=== PATIENT | female | born 1960 | race Caucasian/White ===

== ENCOUNTER 2018-06-08 17:07 | Inpatient (IN) | payer OTHER ==
[2018-06-08 18:11] LABS: Absolute Monocytes 0.7 K/uL (0.1-1.3); Absolute Neutrophil 6.6 K/uL (1.8-8.0); Basophils % 0.4 % (0-1.3); Eosinophils % 2.3 % (0-4.4); Hematocrit 44.2 % (36.0-45.0); Lymphocytes % 21.2 % (15.3-44.8); MCH 27.7 pg (27.0-35.0); MCV 83.7 fL (80-100); MPV 8.7 fL (7.6-11.3); Monocytes % 7.8 % (3.3-12.3); RBC Red Blood Cell Count 5.28 M/uL (3.86-4.86)
[2018-06-08] MEDS ORDERED: MORPHINE 4 MG/ML SYR ONE ×2 (18:13→19:38)
[2018-06-08] MEDS ORDERED: NA CHLORIDE 0.9% 1,000 ML ONE (18:13)
[2018-06-08] MEDS ORDERED: ONDANSETRON 4 MG/2 ML VIAL ONE (18:13)
[2018-06-08 18:40] LABS: Urine Bacteria <20 /HPF (<20); Urine RBC <5 /HPF (NONE SEEN)
[2018-06-08 18:41] LABS: Urine Culture Reflex Order NOT NEEDED
[2018-06-08 18:44] LABS: Albumin 3.4 g/dL (3.4-5.0); Bilirubin Direct 0.1 mg/dL (0-0.2); Bilirubin Total 0.3 mg/dL (0.2-1.0); Protein, Total 8.2 g/dL (6.4-8.2)
[2018-06-08 19:26] LABS: Urine Blood NEGATIVE (NEG); Urine Glucose NEGATIVE (NEG); Urine Protein NEGATIVE (NEG)
--- NOTE | 2018-06-08 20:17 | RAD REPORT ---
EXAM DESCRIPTION: CT - Abdomen Pelvis Wo Contrast - 06/08/2018 7:56 pm CLINICAL HISTORY: Abdominal pain COMPARISON: None. TECHNIQUE: It No IV contrast was given because of allergy, abnormal renal function, patient refusal or physician request. Oral contrast was given. All CT scans are performed using dose optimization technique as appropriate and may include automated exposure control or mA/KV adjustment according to patient size. FINDINGS: No suspicious findings in the lung bases. The liver, spleen and pancreas show no suspicious findings on non-contrast imaging. A 12 millimeter g allstone is present. No other gallbladder or biliary tree finding. No hydronephrosis or suspicious renal mass. No significant adrenal finding. Isodense renal masses an d pyelonephritis cannot be excluded in the absence of IV contrast. The urinary bladder is without sig nificant finding. Uterus and ovaries show no suspicious findings. No gastric dilatation or wall thickening. No acute small bowel finding. No appendicitis findings. Fro m cecum through splenic flexure no colon abnormality. In the distal descending colon there is a short segment of circumferential wall thickening with edema and stranding in the adjacent fat. Patient has sigmoid and descending colon diverticulosis. No acute sigmoid or rectum process. No free air, free f luid or pneumatosis. No other site of inflammatory stranding. No hernia, mass or bulky lymphadenopath y. No suspicious bony findings. IMPRESSION: Mild acute diverticulitis of the distal descending colon. No abscess, free air or other complicating factor. Full assessment is limited is the absence of IV contrast.
--- NOTE | 2018-06-08 20:34 | EDPHYS ---
Physician Documentation [facility] Name: Tere Urbina Age: 57 yrs Sex: Female : 1960 Arrival Date: 06/08/2018 Time: 17:09 Bed 19 Private MD: ED Physician Soy Callaway HPI: 06/08 18:00 This 57 yrs old Female presents to ER via Ambulatory with complaints of cp Abdominal Pain, Flank Pain. 18:00 The patient presents with abdominal pain in the left lower quadrant, left lateral cp abdomen. Onset: The symptoms/episode began/occurred this morning, upon awakening. The symptoms do not radiate. Associated signs and symptoms: Pertinent positives: nausea, Pertinent negatives: blood in stools, chest pain, constipation, dysuria, fever, hematuria, vaginal discharge, vomiting. The symptoms are described as constant. Modifying factors: the symptoms are aggravated by movement, pressure. Severity of pain: in the emergency department the pain is actually worse moderately. Historical: - Allergies: 17:39 PENICILLINS; aj1 17:39 Keflex; aj1 17:39 Ceclor; aj1 - Home Meds: 17:39 pantoprazole 40 mg oral TbEC 1 tab once daily [Active]; montelukast 10 mg oral tab once aj1 daily [Active]; rosuvastatin 10 mg oral tab 1 tab once daily [Active]; terbinafine HCl 250 mg oral tab 1 tab once daily [Active]; levothyroxine 100 mcg tab 1 tab once daily [Active]; Usha 180 mg Oral tab 1 tab once daily [Active]; - PMHx: 17:39 Hypothyroidism; GERD; IBS; seasonal allergies; aj1 - Immunization history:: Flu vaccine is not up to date. - Social history:: Smoking status: Patient uses tobacco products, smokes one-half pack cigarettes per day. - Ebola Screening: : Patient denies travel to an Ebola-affected area in the 21 days before illness onset. ROS: 18:05 Constitutional: Negative for body aches, chills, fever, poor PO intake. cp 18:05 Eyes: Negative for injury, pain, redness, and discharge. cp 18:05 Cardiovascular: Negative for chest pain, edema, palpitations. 18:05 Respiratory: Negative for cough, shortness of breath, wheezing. 18:05 Abdomen/GI: Positive for abdominal pain, nausea, of the anterior aspect of left lateral abdomen and left lower quadrant, Negative for vomiting, diarrhea, constipation, anorexia. 18:05 Back: Negative for injury or acute deformity, decreased range of motion. 18:05 : Negative for urinary symptoms, vaginal bleeding. 18:05 Skin: Negative for cellulitis, rash. 18:05 Neuro: Negative for altered mental status, headache, weakness. 18:05 All other systems are negative. Exam: 18:12 Constitutional: The patient appears alert, awake, non-diaphoretic, non-toxic, well cp developed, in obvious pain, uncomfortable. 18:12 Head/Face: Normocephalic, atraumatic. Eyes: Pupils equal round and reactive to light, cp extra-ocular motions intact. Lids and lashes normal. Conjunctiva and sclera are non-icteric and not injected. Cornea within normal limits. Periorbital areas with no swelling, redness, or edema. ENT: Nares patent. No nasal discharge, no septal abnormalities noted. Tympanic membranes are normal and external auditory canals are clear. Oropharynx with no redness, swelling, or masses, exudates, or evidence of obstruction, uvula midline. Mucous membranes moist. Chest/axilla: Normal chest wall appearance and motion. Nontender with no deformity. No lesions are appreciated. 18:12 Cardiovascular: Rate: normal, Rhythm: regular, Heart sounds: murmur, not appreciated, Edema: is not appreciated, JVD: is not appreciated. 18:12 Respiratory: the patient does not display signs of respiratory distress, Respirations: normal, no use of accessory muscles, no retractions, no splinting, no tachypnea, labored breathing, is not present, Breath sounds: are clear throughout, no decreased breath sounds, no stridor, no wheezing. 18:12 Abdomen/GI: Inspection: abdomen appears normal, Bowel sounds: active, all quadrants, Palpation: soft, in all quadrants, severe abdominal tenderness, in the anterior aspect of left lateral abdomen and left lower quadrant, rebound tenderness, is not appreciated, voluntary guarding, is elicited in the anterior aspect of left lateral abdomen and left lower quadrant. 18:12 Back: CVA tenderness, is absent. 18:12 Skin: cellulitis, is not appreciated, no rash present. 18:12 Neuro: Orientation: to person, place \T\ time. Mentation: is normal, Cerebellar function: is grossly normal, Motor: moves all fours, strength is normal, Sensation: is normal. Vital Signs: 17:39 BP 146 / 87; Pulse 94; Resp 18; Temp 98.8(O); Pulse Ox 99% on R/A; Weight 86.18 kg (R); aj1 Height 5 ft. 7 in. (170.18 cm); Pain 10/10; 18:24 BP 143 / 84; Pulse 85; Pulse Ox 97% on R/A; rv 19:15 BP 134 / 74; Pulse 82; Resp 17; Temp 98.4(O); Pulse Ox 97% on R/A; rr5 20:00 BP 135 / 78; Pulse 89; Resp 17; Temp 98.5; Pulse Ox 100% ; rr5 21:00 BP 134 / 70; Pulse 70; Resp 17; Pulse Ox 99% ; rr5 17:39 Body Mass Index 29.76 (86.18 kg, 170.18 cm) aj1 MDM: 17:43 Patient medically screened. cp 20:31 Data reviewed: vital signs, nurses notes, lab test result(s), radiologic studies. Physician consultation: Semaj Lewis MD was called at 20:31, was contacted at 20:31, regarding admission, to the medical/surgical unit. patient's condition. 06/08 17:55 Order name: Basic Metabolic Panel; Complete Time: 19:20 cp 06/08 19:20 Interpretation: Normal except: GFR 87. 06/08 17:55 Order name: CBC with Diff; Complete Time: 19:20 cp 06/08 19:20 Interpretation: Normal except: RBC 5.28. cp 06/08 17:55 Order name: Creatinine for Radiology; Complete Time: 19:20 cp 06/08 17:55 Order name: Hepatic Function; Complete Time: 19:20 cp 06/08 19:54 Interpretation: Normal except: ALK 144; GLOB 4.8; A/G 0.7. cp 06/08 17:55 Order name: Lipase; Complete Time: 19:20 cp 06/08 17:55 Order name: Urine Microscopic Only; Complete Time: 19:20 cp 06/08 19:55 Interpretation: Normal except: SQEPI 5-10. cp 06/08 18:07 Order name: Abdomen ; Complete Time: 20:24 EDMS 06/08 18:28 Order name: Urine Dipstick--Ancillary (enter results); Complete Time: 19:54 eb 06/08 19:54 Interpretation: Reviewed. cp 06/08 18:28 Order name: Urine --Ancillary (enter results); Complete Time: 19:54 eb 06/08 19:54 Interpretation: Reviewed. cp 06/08 17:55 Order name: IV Saline Lock; Complete Time: 18:25 cp 06/08 17:55 Order name: Labs collected and sent; Complete Time: 18:25 cp 06/08 17:55 Order name: Urine Test (obtain specimen); Complete Time: 18:20 cp 06/08 17:55 Order name: Urine Dipstick-Ancillary (obtain specimen); Complete Time: 18:19 cp 06/08 20:32 Order name: NPO; Complete Time: 21:08 cp Administered Medications: 18:14 Drug: morphine 4 mg Route: IVP; Site: right antecubital; rv 18:15 Drug: NS 0.9% 1000 ml Route: IV; Rate: 1 bolus; Site: right antecubital; rv 18:15 Drug: Zofran 4 mg Route: IVP; Site: right antecubital; rv 19:37 Drug: morphine 4 mg Route: IVP; Site: right antecubital; rr5 21:08 Follow up: Response: No adverse reaction; Pain is decreased rr5 20:40 Drug: Dilaudid 1 mg Route: IVP; Site: right antecubital; rr5 21:34 Follow up: Response: No adverse reaction; Pain is decreased rr5 21:21 Drug: metroNIDAZOLE 500 mg Volume: 100 ml; Route: IVPB; Infused Over: 30 mins; Site: rr5 right antecubital; 21:35 Follow up: IV Status: Infusion continued upon admission; IV Intake: 100ml rr5 21:21 Drug: Cipro 400 mg Volume: 200 ml; Route: IVPB; Infused Over: 60 mins; Site: right rr5 antecubital; 21:34 Follow up: IV Status: Infusion continued upon admission; IV Intake: 200ml rr5 Disposition: 06/09 06:14 Co-signature as Attending Physician, Soy Callaway MD. rn Disposition: 06/08/18 20:33 Hospitalization ordered by Semaj Lewis for Inpatient Admission. Preliminary diagnosis is Diverticulitis of large intestine without perforation or abscess without bleeding. - Bed requested for Telemetry/MedSurg (Inpatient). - Status is Inpatient Admission. rr5 - Condition is Stable. - Problem is new. - Symptoms have improved. UTI on Admission? No Signatures: Dispatcher [employer] EDOR Bella Biggs RN RN aj1 Soy Callaway MD MD rn Page, Corey, PA PA Deloris Wagoner mw2 Norm Hill RN RN Abdi Kyle RN RN rr5 Corrections: (The following items were deleted from the chart) 06/08 18:07 17:56 Abdomen Pelvis W Con+CT.RAD.BRZ ordered. [facility] 20:56 20:33 Hospitalization Ordered by Semaj Lewis MD for Inpatient Admission. Preliminary mw2 diagnosis is Diverticulitis of large intestine without perforation or abscess without bleeding. Bed requested for Telemetry/MedSurg (Inpatient). Status is Inpatient Admission. Condition is Stable. Problem is new. Symptoms have improved. UTI on Admission? No. cp 21:41 20:56 06/08/2018 20:33 Hospitalization Ordered by Semaj Lewis MD for Inpatient rr5 Admission. Preliminary diagnosis is Diverticulitis of large intestine without perforation or abscess without bleeding. Bed requested for Telemetry/MedSurg (Inpatient). Status is Inpatient Admission. Condition is Stable. Problem is new. Symptoms have improved. UTI on Admission? No. mw2
--- NOTE | 2018-06-08 20:34 | ER ---
Nurse's Notes [facility] Name: Tere Urbina Age: 57 yrs Sex: Female : 1960 Arrival Date: 06/08/2018 Time: 17:09 Bed 19 Private MD: Diagnosis: Diverticulitis of large intestine without perforation or abscess without bleeding Presentation: 06/08 17:33 Presenting complaint: Patient states: "I got up this morning and I was having some low aj1 abdominal pain, as the day progressed its gotten worse and now its going into my side and radiating into my back" Denies N/V/D. Denies dysuria. Transition of care: patient was not received from another setting of care. Onset of symptoms was June 08, 2018. Risk Assessment: Do you want to hurt yourself or someone else? Patient reports no desire to harm self or others. Initial Sepsis Screen: Does the patient meet any 2 criteria? HR > 90 bpm. No. Patient's initial sepsis screen is negative. Does the patient have a suspected source of infection? Yes: Acute abdominal pain. Care prior to arrival: None. 17:33 Method Of Arrival: Ambulatory aj1 17:33 Acuity: KAITLYNN 3 aj1 Triage Assessment: 17:39 General: Appears in no apparent distress. comfortable, Behavior is calm, cooperative, aj1 appropriate for age. Pain: Complains of pain in posterior aspect of left lateral abdomen, anterior aspect of left lateral abdomen and left lower quadrant Pain currently is 10 out of 10 on a pain scale. Neuro: Level of Consciousness is awake, alert, obeys commands. Cardiovascular: Patient's skin is warm and dry. Respiratory: Airway is patent Respiratory effort is even, unlabored, Respiratory pattern is regular, symmetrical. GI: Reports lower abdominal pain, nausea. Historical: - Allergies: 17:39 PENICILLINS; aj1 17:39 Keflex; aj1 17:39 Ceclor; aj1 - Home Meds: 17:39 pantoprazole 40 mg oral TbEC 1 tab once daily [Active]; montelukast 10 mg oral tab once aj1 daily [Active]; rosuvastatin 10 mg oral tab 1 tab once daily [Active]; terbinafine HCl 250 mg oral tab 1 tab once daily [Active]; levothyroxine 100 mcg tab 1 tab once daily [Active]; Usha 180 mg Oral tab 1 tab once daily [Active]; - PMHx: 17:39 Hypothyroidism; GERD; IBS; seasonal allergies; aj1 - Immunization history:: Flu vaccine is not up to date. - Social history:: Smoking status: Patient uses tobacco products, smokes one-half pack cigarettes per day. - Ebola Screening: : Patient denies travel to an Ebola-affected area in the 21 days before illness onset. Screenin:23 Abuse screen: Denies threats or abuse. Denies injuries from another. Nutritional rv screening: No deficits noted. Tuberculosis screening: No symptoms or risk factors identified. Fall Risk None identified. Assessment: 18:00 General: Appears in no apparent distress. uncomfortable, Behavior is calm, cooperative. rv 18:00 Pain: Complains of pain in back. Neuro: Level of Consciousness is awake, alert, obeys rv commands, Oriented to person, place, time, situation. Cardiovascular: Capillary refill < 3 seconds. Respiratory: Airway is patent. GI: No signs and/or symptoms were reported involving the gastrointestinal system. Bowel sounds present X 4 quads. Abd is soft and non tender X 4 quads. : No signs and/or symptoms were reported regarding the genitourinary system. EENT: No signs and/or symptoms were reported regarding the EENT system. Derm: Skin is intact. 19:20 General: Appears uncomfortable, Behavior is calm, cooperative. Pain: Complains of pain rr5 in back and abdomen Pain currently is 8 out of 10 on a pain scale. Quality of pain is described as aching. 19:20 Neuro: Level of Consciousness is Oriented to person, place, time, situation. rr5 Cardiovascular: No deficits noted. Respiratory: No deficits noted. Airway is patent. GI: Bowel sounds present X 4 quads. Abd is soft and non tender. : No signs and/or symptoms were reported regarding the genitourinary system. EENT: No signs and/or symptoms were reported regarding the EENT system. Derm: Skin is intact, is healthy with good turgor. Musculoskeletal: No signs and/or symptoms reported regarding the musculoskeletal system. Musculoskeletal: Capillary refill < 3 seconds, Range of motion:. 21:23 Reassessment: Patient states feeling better. Patient states symptoms have improved. rr5 Vital Signs: 17:39 BP 146 / 87; Pulse 94; Resp 18; Temp 98.8(O); Pulse Ox 99% on R/A; Weight 86.18 kg (R); aj1 Height 5 ft. 7 in. (170.18 cm); Pain 10/10; 18:24 BP 143 / 84; Pulse 85; Pulse Ox 97% on R/A; rv 19:15 BP 134 / 74; Pulse 82; Resp 17; Temp 98.4(O); Pulse Ox 97% on R/A; rr5 20:00 BP 135 / 78; Pulse 89; Resp 17; Temp 98.5; Pulse Ox 100% ; rr5 21:00 BP 134 / 70; Pulse 70; Resp 17; Pulse Ox 99% ; rr5 17:39 Body Mass Index 29.76 (86.18 kg, 170.18 cm) aj1 ED Course: 17:09 Patient arrived in ED. as 17:35 Triage completed. aj1 17:39 Arm band placed on Patient placed in an exam room. aj1 17:42 Wilfredo Upton PA is PHCP. cp 17:42 Soy Callaway MD is Attending Physician. cp 17:59 Oral contrast given. vr 18:00 Inserted saline lock: 20 gauge in right antecubital area, using aseptic technique. rv Blood collected. 18:00 Initial lab(s) drawn, by me, sent to lab. rv 18:23 Patient has correct armband on for positive identification. Bed in low position. Call rv light in reach. Side rails up X 1. Adult w/ patient. Pulse ox on. NIBP on. 19:01 Report given to SEBASTIAN/YONY ASHFORD. rv 19:16 Abdi Kyle RN is Primary Nurse. rr5 19:55 CT completed. Patient tolerated procedure well. Patient moved back from CT. vm2 19:56 Abdomen In Process Unspecified. EDMS 20:32 Semaj Lewis MD is Hospitalizing Provider. cp 21:29 No provider procedures requiring assistance completed. Patient admitted, IV remains in rr5 place. intact. Administered Medications: 18:14 Drug: morphine 4 mg Route: IVP; Site: right antecubital; rv 18:15 Drug: NS 0.9% 1000 ml Route: IV; Rate: 1 bolus; Site: right antecubital; rv 18:15 Drug: Zofran 4 mg Route: IVP; Site: right antecubital; rv 19:37 Drug: morphine 4 mg Route: IVP; Site: right antecubital; rr5 21:08 Follow up: Response: No adverse reaction; Pain is decreased rr5 20:40 Drug: Dilaudid 1 mg Route: IVP; Site: right antecubital; rr5 21:34 Follow up: Response: No adverse reaction; Pain is decreased rr5 21:21 Drug: metroNIDAZOLE 500 mg Volume: 100 ml; Route: IVPB; Infused Over: 30 mins; Site: rr5 right antecubital; 21:35 Follow up: IV Status: Infusion continued upon admission; IV Intake: 100ml rr5 21:21 Drug: Cipro 400 mg Volume: 200 ml; Route: IVPB; Infused Over: 60 mins; Site: right rr5 antecubital; 21:34 Follow up: IV Status: Infusion continued upon admission; IV Intake: 200ml rr5 Intake: 21:34 IV: 200ml; Total: 200ml. rr5 21:35 IV: 100ml; Total: 300ml. rr5 Outcome: 20:33 Decision to Hospitalize by Provider. cp 21:29 Admitted to Tele Report called to SUSAN rr5 21:29 Condition: good 21:29 Instructed on the need for admit. 21:41 Patient left the ED. rr5 Signatures: Dispatcher [employer] EDBella Caldwell, RN RN ajJewels Stephens Victoria vr Page, Corey, PA PA cp McGuire, Victoria 2 Norm Hill RN RN rv Roque, Raymond RN RN rr5 Corrections: (The following items were deleted from the chart) 21:32 21:29 Admitted to Tele accompanied by nurse, rr5 rr5
[2018-06-08] MEDS ORDERED: HYDROMORPHONE HCL 1 MG/ML INJ ONE (20:38)
[2018-06-08] MEDS ORDERED: METRONIDAZOLE 500mg IVPB 500 MG/100 ML BAG IV ONE (21:25)
[2018-06-08] MEDS ORDERED: CIPROFLOXACIN 400mg IV 400 MG/200 ML BAG IV ONE (21:25)
--- NOTE | 2018-06-08 21:29 | P.HP ---
Certification for Inpatient Patient admitted to: Inpatient With expected LOS: >2 Midnights Practitioner: I am a practitioner with admitting privileges, knowledge of patient current condition, hospital course, and medical plan of care. Services: Services provided to patient in accordance with Admission requirements found in Title 42 Section 412.3 of the Code of Federal Regulations Patient History Date of Service: 06/08/18 Reason for admission: Acute pancreatitis History of Present Illness: Ms Urbina 7-year-old woman with history of hypothyroidism, GERD, IBS who start this morning with lower abdominal pain. Gravelly, the pain was getting worse and was localized on aortic panel radiated to left flank and right lower quadrant. She denied any fever, chills sweating episode. She also denied nausea, vomiting or diarrhea. The pain was constant, intensity 10/10. Lab work shows normal WBC count, lactate and procalcitonin pending. CT abdomen and pelvis remarkable for mild sigmoid diverticulitis without complication. Home medications list reviewed: Yes - Past Medical/Surgical History -: Hypothyroidism -: IBS -: Tobacco abuse -: GERD Past Surgical History: Reviewed- Non-Contributory - Family History Family History: Reviewed- Non-Contributory - Social History Smoking Status: Current every day smoker Counseled patient to stop smoking for: less than 10 minutes Alcohol use: Yes CD- Drugs: No Place of Residence: Home Review of Systems 10-point ROS is otherwise unremarkable Physical Examination - Physical Exam General: Alert, In no apparent distress HEENT: Atraumatic, PERRLA, Mucous membr. moist/pink, EOMI, Sclerae nonicteric Neck: Supple, 2+ carotid pulse no bruit, No LAD, Without JVD or thyroid abnormality Respiratory: Clear to auscultation bilaterally, Normal air movement Cardiovascular: Regular rate/rhythm, Normal S1 S2 Gastrointestinal: Normal bowel sounds, Tenderness (Left lower quadrant) Musculoskeletal: No tenderness Integumentary: No rashes Neurological: Normal speech, Normal strength at 5/5 x4 extr, Normal tone, Normal affect Lymphatics: No axilla or inguinal lymphadenopathy - Studies Laboratory Data (last 24 hrs) 06/08/18 18:00: Creatinine 0.60 06/08/18 18:00: WBC 9.6, Hgb 14.6, Hct 44.2, Plt Count 280 06/08/18 18:00: Sodium 140, Potassium 4.0, BUN 8, Creatinine 0.70, Glucose 93, Total Bilirubin 0.3, AST 26, ALT 47, Alkaline Phosphatase 144 H, Lipase 227 Assessment and Plan - Problems (Diagnosis) (1) Acute diverticulitis Current Visit: Yes Status: Acute (2) Hypothyroidism Current Visit: Yes Status: Acute Qualifiers: Hypothyroidism type: unspecified Qualified Code(s): E03.9 - Hypothyroidism , unspecified (3) Tobacco abuse Current Visit: Yes Status: Acute - Plan The patient will be admitted to the hospital due to acute uncomplicated diverticulitis. Will order IV fluids, empiric antibiotic treatment, clear liquids, and symptomatic medication for pain. At some point, she will need to have an evaluation by GI specialist, likely constipation discharge. - Advance Directives Does patient have a Living Will: No Does patient have a Durable POA for Healthcare: No - Code Status/Comfort Care Code Status Assessed: Yes Code Status: Full Code
[2018-06-08] MEDS ORDERED: CIPROFLOXACIN 400mg IV 400 MG/200 ML BAG IV SCH (22:33)
[2018-06-08] MEDS ORDERED: ACETAMINOPHEN 500 MG TAB PO PRN (22:33)
[2018-06-08] MEDS: ONDANSETRON 4 MG/2 ML VIAL IV PRN (23:07)
[2018-06-08] MEDS: NA CHLORIDE 0.9% 1,000 ML IV SCH (23:07)
[2018-06-08] MEDS: KETOROLAC 30 MG/ML INJ IV PRN (23:08)
[2018-06-08 23:36] VITALS: O2SAT 95; BMI 30.8
[2018-06-09] MEDS: LEVOTHYROXINE SOD 0.1 MG TAB PO SCH (05:48)
[2018-06-09] MEDS: NA CHLORIDE 0.9% 1,000 ML IV SCH ×3 (05:48→21:26)
[2018-06-09] MEDS: KETOROLAC 30 MG/ML INJ IV PRN (05:52)
[2018-06-09 07:16] LABS: Absolute Lymphocytes (CBC) 2.6 K/uL (0.7-4.9); Absolute Monocytes 0.6 K/uL (0.1-1.3); Absolute Neutrophil 3.3 K/uL (1.8-8.0); Basophils % 0.5 % (0-1.3); Hematocrit 39.1 % (36.0-45.0); Lymphocytes % 38.4 % (15.3-44.8); MCH 27.8 pg (27.0-35.0); MCV 83.7 fL (80-100); MPV 9.6 fL (7.6-11.3); Monocytes % 8.8 % (3.3-12.3); RBC Red Blood Cell Count 4.67 M/uL (3.86-4.86)
[2018-06-09 07:17] LABS: Potassium 3.8 mmol/L (3.5-5.1)
[2018-06-09] MEDS: METRONIDAZOLE 500mg IVPB 500 MG/100 ML BAG IV SCH ×2 (09:48→17:24)
[2018-06-09] MEDS: CIPROFLOXACIN 400mg IV 400 MG/200 ML BAG IV SCH ×2 (09:48→21:05)
[2018-06-09] MEDS: ONDANSETRON 4 MG/2 ML VIAL IV PRN (09:49)
--- NOTE | 2018-06-09 13:49 | P.PN ---
Subjective Date of Service: 06/09/18 Chief Complaint: Diverticulitis Subjective: Tolerating diet, Ambulating, Improving, Doing well Review of Systems 10-point ROS is otherwise unremarkable Physical Examination - Vital Signs Temperature: 97.9 F Blood Pressure: 111/59 Pulse: 63 Respirations: 18 Pulse Ox (%): 98 - Physical Exam General: Alert, In no apparent distress HEENT: Atraumatic, PERRLA, EOMI Neck: Supple, JVD not distended Respiratory: Clear to auscultation bilaterally, Normal air movement Cardiovascular: Regular rate/rhythm, Normal S1 S2 Gastrointestinal: Normal bowel sounds, Tenderness Musculoskeletal: No tenderness Integumentary: No rashes Neurological: Normal speech, Normal tone, Normal affect Lymphatics: No axilla or inguinal lymphadenopathy - Studies Laboratory Data (last 24 hrs) 06/08/18 18:00: Creatinine 0.60 06/08/18 18:00: WBC 9.6, Hgb 14.6, Hct 44.2, Plt Count 280 06/08/18 18:00: Sodium 140, Potassium 4.0, BUN 8, Creatinine 0.70, Glucose 93, Total Bilirubin 0.3, AST 26, ALT 47, Alkaline Phosphatase 144 H, Lipase 227 Medications List Reviewed: Yes Assessment And Plan - Current Problems (Diagnosis) (1) Acute diverticulitis Onset Date: 06/09/18 Current Visit: Yes Status: Acute Plan: Moderate diverticulitis on CT scan of the sigmoid colon -IV antibiotics Cipro and metronidazole at this time -IV fluids. -patient states that she is having improvement this morning. -Is on clear liquid diet. Will advance as tolerated. (2) Hypothyroidism Onset Date: 06/09/18 Current Visit: Yes Status: Chronic Qualifiers: Hypothyroidism type: acquired Qualified Code(s): E03.9 - Hypothyroidism, unspecified (3) Tobacco abuse Onset Date: 06/09/18 Current Visit: Yes Status: Chronic Discharge Plan: Home Plan to discharge in: 48 Hours - Code Status/Comfort Care Code Status Assessed: Yes Critical Care: No
[2018-06-09] MEDS ORDERED: FLUCONAZOLE 100 MG TAB PO ONE (21:00)
[2018-06-09] MEDS ORDERED: ROSUVASTATIN 10 MG TAB PO SCH (21:00)
[2018-06-10] MEDS: METRONIDAZOLE 500mg IVPB 500 MG/100 ML BAG IV SCH ×2 (00:53→09:43)
[2018-06-10] MEDS: NA CHLORIDE 0.9% 1,000 ML IV SCH (05:41)
[2018-06-10] MEDS: LEVOTHYROXINE SOD 0.1 MG TAB PO SCH (05:42)
[2018-06-10] MEDS ORDERED: LEVOTHYROXINE SOD 0.1 MG TAB PO SCH (06:00)
[2018-06-10] MEDS: ONDANSETRON 4 MG/2 ML VIAL IV PRN (07:20)
[2018-06-10] MEDS ORDERED: MONTELUKAST 10 MG TAB PO SCH (09:00)
[2018-06-10] MEDS ORDERED: PANTOPRAZOLE 40MG TABLET PO SCH (09:00)
[2018-06-10] MEDS ORDERED: TERBINAFINE HCL 250 MG TAB PO SCH (09:00)
[2018-06-10] MEDS ORDERED: FEXOFENADINE 180 MG TAB PO SCH (09:00)
[2018-06-10] MEDS: CIPROFLOXACIN 400mg IV 400 MG/200 ML BAG IV SCH (09:43)
[2018-06-10 12:44] VITALS: BP 134/74; TEMP 98.1
--- NOTE | 2018-06-10 12:58 | P.SSS ---
Patient History Date of Service: 06/10/18 Reason for admission: Diverticulitis History of Present Illness: Ms Urbina 7-year-old woman with history of hypothyroidism, GERD, IBS who start this morning with lower abdominal pain. Gravelly, the pain was getting worse and was localized on aortic panel radiated to left flank and right lower quadrant. She denied any fever, chills sweating episode. She also denied nausea, vomiting or diarrhea. The pain was constant, intensity 10/10. Lab work shows normal WBC count, lactate and procalcitonin pending. CT abdomen and pelvis remarkable for mild sigmoid diverticulitis without complication. Allergies cefaclor [From Ceclor] Allergy (Verified 06/08/18 22:15) Hives/Rash cephalexin [From Keflex] Allergy (Verified 06/08/18 22:15) Hives/Rash Penicillins Allergy (Verified 06/08/18 22:15) Hives/Rash Home Medications: Fexofenadine HCl [Usha Allergy] 180 mg PO DAILY 06/08/18 Levothyroxine [Synthroid*] 100 mcg PO [id number] 06/08/18 Montelukast [Singulair*] 10 mg PO DAILY 06/08/18 Pantoprazole Sodium 40 mg PO DAILY 06/08/18 Rosuvastatin Calcium 10 mg PO BEDTIME 06/08/18 Terbinafine HCl 250 mg PO DAILY 06/08/18 Ciprofloxacin HCl [Cipro 500 MG Tablet] 500 mg PO BID #20 tab 06/10/18 metroNIDAZOLE [Flagyl] 500 mg PO Q8H #30 tablet 06/10/18 - Past Medical/Surgical History Has patient received pneumonia vaccine in the past: No Diabetic: No -: Hypothyroidism -: IBS -: Tobacco abuse -: GERD - Family History Family History: Reviewed- Non-Contributory - Family History Great Aunt -: Cancer Notes: breast cancer Grandfather -: Cancer - Social History Smoking Status: Current every day smoker Alcohol use: Yes CD- Drugs: No Caffeine use: Yes Place of Residence: Home Review of Systems 10-point ROS is otherwise unremarkable Physical Examination - Vital Signs Temperature: 98.1 F Blood Pressure: 134/74 Pulse: 54 Respirations: 16 Pulse Ox (%): 98 - Physical Exam General: Alert, In no apparent distress HEENT: Atraumatic, PERRLA, Mucous membr. moist/pink, EOMI, Sclerae nonicteric Neck: Supple, 2+ carotid pulse no bruit, No LAD, Without JVD or thyroid abnormality Respiratory: Clear to auscultation bilaterally, Normal air movement Cardiovascular: Regular rate/rhythm, Normal S1 S2 Gastrointestinal: Normal bowel sounds, No tenderness Musculoskeletal: No tenderness Integumentary: No rashes Neurological: Normal gait, Normal speech, Normal strength at 5/5 x4 extr, Normal tone, Normal affect Lymphatics: No axilla or inguinal lymphadenopathy - Diagnosis (Problem(s)) (1) Acute diverticulitis Onset Date: 06/09/18 Current Visit: Yes Status: Acute (2) Hypothyroidism Onset Date: 06/09/18 Current Visit: Yes Status: Chronic Qualifiers: Hypothyroidism type: acquired Qualified Code(s): E03.9 - Hypothyroidism, unspecified (3) Tobacco abuse Onset Date: 06/09/18 Current Visit: Yes Status: Chronic Treatment Summary: Overall during the hospital stay patient remained stable The patient was initially admitted to the hospital for abdominal pain most likely secondary to mild diverticulitis in the sigmoid colon that was seen on abdominal CT. Patient was at nausea and vomiting associated with that. Patient was admitted to the hospital and was given IV fluids and was kept on IV Cipro and Flagyl here in the hospital. Patient had marked resolution of her nausea and vomiting along with abdominal pain and then her diet was advanced to a clear liquid and then to full liquid. Patient again had marked improvement in her symptoms did not have any abdominal pain nausea vomiting and was tolerating a diet well and thus she was advanced to a more solid diet. Once patient was able to take in solid diet she was discharged home under stable condition was asked to take Cipro and Flagyl orally for next 14 days. Patient demonstrated understanding and was also asked to follow up with general surgery in 6 weeks to get a colonoscopy done. Patient demonstrated understanding and thus was discharged home under stable condition - Disposition Disposition: ROUTINE DISCHARGE Condition: GOOD Patient Discharge Instructions: Please f.u with PCP in 1 to 2 week post discharge. New medication. Ciprofloxacin 500mg BID. Flagyl 500mg q8h Diet: Regular Activity: Ad damian
== END 2018-06-10 14:44 | disposition home or self-care (01) | DRG 392 ==
LOC: ER 17:07 → ERHOLD 20:35 → 4TH 21:31
PROVIDERS: ADMIT Internal Medicine; ATTEND Family Medicine
DX: K57.32 Diverticulitis of large intestine without perforation or abscess without bleeding (principal); Z88.0 Allergy status to penicillin; Z88.8 Allergy status to other drugs, medicaments and biological substances; E03.9 Hypothyroidism, unspecified; K21.9 Gastro-esophageal reflux disease without esophagitis; F17.210 Nicotine dependence, cigarettes, uncomplicated; K58.9 Irritable bowel syndrome, unspecified
CPT/HCPCS: 36415; 74176; 80048; 80076; 81003; 81015; 81025; 83605; 83690; 84145; 85025; 96374; 96375; 99285; J0744; J1170; J2405; J7030

== ENCOUNTER 2019-03-24 10:58 | Emergency (ER) | payer OTHER ==
[2019-03-24] MEDS ORDERED: NA CHLORIDE 0.9% 1,000 ML ONE (11:37)
[2019-03-24] MEDS ORDERED: ONDANSETRON 4 MG/2 ML VIAL ONE ×2 (11:37→13:13)
[2019-03-24] MEDS ORDERED: MORPHINE 4 MG/ML SYR ONE (11:37)
[2019-03-24 11:55] LABS: Hematocrit 43.8 % (36.0-45.0); Lymphocytes % 46.1 % (15.3-44.8); MPV 9.6 fL (7.6-11.3); RBC Red Blood Cell Count 5.05 M/uL (3.86-4.86)
[2019-03-24] MEDS ORDERED: FENTANYL CITR 100 MCG/2 ML ONE (12:02)
[2019-03-24 12:13] LABS: Albumin 3.5 g/dL (3.4-5.0); Bilirubin Direct 0.1 mg/dL (0-0.2); Bilirubin Total 0.3 mg/dL (0.2-1.0); Potassium 4.2 mmol/L (3.5-5.1); Protein, Total 8.5 g/dL (6.4-8.2)
[2019-03-24 12:29] LABS: Blood Morphology Comment NOT SEEN (NOT SEEN); Platelet Estimate ADEQ
--- NOTE | 2019-03-24 12:33 | RAD REPORT ---
EXAM DESCRIPTION: US - Abdomen Exam Limited - 03/24/2019 12:20 pm CLINICAL HISTORY: ABD PAIN COMPARISON: No comparisons FINDINGS: The gallbladder demonstrates no gallstones. No pericholecystic fluid or gallbladder wall t hickening. The common bile duct is prominent measuring 9-10 mm. The liver demonstrates no findings of intrahepatic biliary dilatation. IMPRESSION: Negative gallbladder findings. Prominent common bile duct measuring 9-10 mm. MRCP followup may be considered.
[2019-03-24] MEDS ORDERED: KETOROLAC 30 MG/ML INJ ONE (13:13)
--- NOTE | 2019-03-24 13:18 | RAD REPORT ---
EXAM DESCRIPTION: CT - ABD PELVIS W/O CONTRAST - 03/24/2019 12:50 pm CLINICAL HISTORY: Abdominal pain. ABD PAIN COMPARISON: No comparisons TECHNIQUE: CT imaging of the abdomen and pelvis was performed without contrast. Solid organ, bowel a nd vascular assessment is limited due to lack of IV and oral contrast. All CT scans are performed using dose optimization technique as appropriate and may include automated exposure control or mA/KV adjustment according to patient size. FINDINGS: The lower lung fraser are clear. There is evidence of a 9 mm stone in the cystic duct. The gallbladder is not distended. The liver, spleen, pancreas, adrenal glands and kidneys are within normal limits for a limited non-co ntrast examination. No bowel obstruction, free air, free fluid or abscess. Sigmoid diverticulosis coli is present without diverticulitis. The appendix is normal. The osseous structures are within normal limits. IMPRESSION: 9 mm stone in the cystic duct is suspected without gallbladder distension. Common bile d uct is not well delineated from surrounding pancreatic tissue on limited noncontrast study. A limited non-contrast examination was performed as detailed.
[2019-03-24] MEDS ORDERED: HYDROMORPHONE HCL 0.5 MG/0.5 ML INJ ONE ×2 (13:51→15:56)
--- NOTE | 2019-03-24 14:54 | ER ---
Nurse's Notes [facility] Name: Tere Urbina Age: 58 yrs Sex: Female : 1960 Arrival Date: 03/24/2019 Time: 11:01 Bed 19 Private MD: Diagnosis: Upper abdominal pain, unspecified;9mm stone in cystic duct Presentation: 03/24 11:24 Presenting complaint: Patient states: RUQ pain that stated suddenly about 45 minutes iw ago, pain radiates to back and under breast, 05/24, denies urinary s/s, normal BM this morning, hx of diverticulitis last year. Transition of care: patient was not received from another setting of care. Onset of symptoms was March 24, 2019. Risk Assessment: Do you want to hurt yourself or someone else? Patient reports no desire to harm self or others. Initial Sepsis Screen: Does the patient meet any 2 criteria? No. Patient's initial sepsis screen is negative. Does the patient have a suspected source of infection? No. Patient's initial sepsis screen is negative. Care prior to arrival: None. 11:24 Method Of Arrival: Wheelchair iw 11:24 Acuity: KAITLYNN 3 iw Historical: - Allergies: 11:28 Ceclor; iw 11:28 Keflex; iw 11:28 PENICILLINS; iw - Home Meds: 11:28 pantoprazole 40 mg Oral TbEC 1 tab once daily [Active]; levothyroxine 100 mcg tab 1 tab iw once daily [Active]; Singulair 10 mg Oral tab 1 tab once daily [Active]; - PMHx: 11:28 GERD; Hypothyroidism; ibs; seasonal allergies; iw - PSHx: 11:28 patrial hysterectomy; Tonsillectomy; Knee surgery; iw - Immunization history:: Adult Immunizations not up to date. - Social history:: Smoking status: Patient uses tobacco products, smokes one-half pack cigarettes per day. - Ebola Screening: : Patient negative for fever greater than or equal to 101.5 degrees Fahrenheit, and additional compatible Ebola Virus Disease symptoms Patient denies exposure to infectious person Patient denies travel to an Ebola-affected area in the 21 days before illness onset No symptoms or risks identified at this time. Screenin:20 Abuse screen: Denies threats or abuse. Nutritional screening: No deficits noted. em Tuberculosis screening: No symptoms or risk factors identified. Fall Risk None identified. Assessment: 12:20 General: Appears in no apparent distress. uncomfortable, Behavior is calm, cooperative, em Denies fever. Pain: Complains of pain in right upper quadrant Pain currently is 10 out of 10 on a pain scale. Neuro: Level of Consciousness is awake, alert, obeys commands, Oriented to person, place, time, situation. Cardiovascular: Reports chest pain, shortness of breath, Capillary refill < 3 seconds Patient's skin is warm and dry. Respiratory: Airway is patent Respiratory effort is even, unlabored, Respiratory pattern is regular, symmetrical, Breath sounds are clear bilaterally. GI: Abdomen is round non-distended, Bowel sounds present X 4 quads. Abd is soft X 4 quads Abdomen is tender to palpation in right upper quadrant Reports nausea. Derm: Skin is intact, is healthy with good turgor, Skin is pink, warm \T\ dry. Musculoskeletal: Capillary refill < 3 seconds, Range of motion: intact in all extremities. 13:00 Reassessment: No changes from previously documented assessment. Patient is alert, em oriented x 3, equal unlabored respirations, skin warm/dry/pink. pt reports pain is unchanged, provider notified. 14:00 Reassessment: Patient appears in no apparent distress at this time. Patient and/or em family updated on plan of care and expected duration. Pain level reassessed. Patient is alert, oriented x 3, equal unlabored respirations, skin warm/dry/pink. rates pain 9/10. 14:50 Reassessment: reports pain is 5/10, states pain is better and tolerable, provider em notified. 15:45 Reassessment: Patient appears in no apparent distress at this time. Patient and/or em family updated on plan of care and expected duration. Pain level reassessed. Patient is alert, oriented x 3, equal unlabored respirations, skin warm/dry/pink. report given to MAKEDA Bella at [facility], pending EMS transportation. 16:20 Reassessment: Patient appears in no apparent distress at this time. Patient and/or em family updated on plan of care and expected duration. Pain level reassessed. Patient is alert, oriented x 3, equal unlabored respirations, skin warm/dry/pink. request something for pain prior to transport, provider notified, new medication orders received, rates pain 5/10 currently. 16:58 Reassessment: report given to EMS. em Vital Signs: 11:29 BP 173 / 89; Pulse 67; Resp 16; Temp 98.2; Pulse Ox 100% on R/A; Weight 91.63 kg; iw Height 5 ft. 7 in. (170.18 cm); Pain 10/10; 12:15 BP 137 / 79 LA Supine (/reg); Pulse 53; Resp 18; Pulse Ox 100% ; Pain 10/10; tt1 13:33 BP 144 / 83 LA Supine (/reg); Pulse 61; Resp 18; Pulse Ox 100% ; Pain 10/10; tt1 14:45 BP 138 / 67 LA Supine (/reg); Pulse 55; Resp 18; Pulse Ox 100% ; Pain 7/10; tt1 17:00 BP 115 / 57; Pulse 53; Resp 16; Pulse Ox 99% on R/A; Pain 5/10; em 11:29 Body Mass Index 31.64 (91.63 kg, 170.18 cm) iw ED Course: 10:59 Esmer Thompson FNP-C is PHCP. kb 10:59 Wilfredo Arias MD is Attending Physician. kb 11:01 Patient arrived in ED. as 11:27 Triage completed. iw 11:29 Arm band placed on. iw 11:32 Tim Abdi LVN is Primary Nurse. em 12:20 Ultrasound completed. Patient tolerated well. sg3 12:20 Patient has correct armband on for positive identification. Placed in gown. Bed in low em position. Call light in reach. Adult w/ patient. Pulse ox on. NIBP on. 12:21 US Abdomen Limited In Process Unspecified. EDMS 12:30 Initial lab(s) drawn, by me, sent to lab. Inserted saline lock: 14 gauge 20 gauge in em right antecubital area, using aseptic technique. Blood collected. 12:51 CT completed. Patient tolerated procedure well. Patient moved back from CT. bq 12:52 CT-ABD In Process Unspecified. EDMS 16:57 No provider procedures requiring assistance completed. Patient transferred, IV remains em in place. Administered Medications: 11:46 Drug: NS 0.9% 1000 ml Route: IV; Rate: 1000 ml; Site: right antecubital; iw 16:05 Follow up: IV Status: Completed infusion; IV Intake: 1000ml em 11:46 Drug: Zofran 4 mg Route: IVP; Site: right antecubital; iw 12:06 Follow up: Response: No adverse reaction; Nausea is decreased em 11:46 Drug: morphine 4 mg Route: IVP; Site: right antecubital; iw 12:47 Follow up: Response: No adverse reaction; Pain is unchanged, physician notified; RASS: em Alert and Calm (0) 12:06 Drug: fentaNYL (PF) 25 mcg Route: IVP; Site: right antecubital; iw 12:48 Follow up: Response: No adverse reaction; Pain is unchanged, physician notified em 12:48 Drug: fentaNYL (PF) 25 mcg Route: IVP; Site: right antecubital; em 13:15 Follow up: Response: No adverse reaction; Pain is unchanged, physician notified em 13:18 Drug: TORadol - Ketorolac 15 mg Route: IVP; Site: right antecubital; iw 13:50 Follow up: Response: No adverse reaction; Pain is decreased em 13:18 Drug: Zofran 4 mg Route: IVP; Site: right antecubital; iw 13:50 Follow up: Response: No adverse reaction; Nausea is decreased em 13:56 Not Given (Other Intervention Used): Dilaudid 1 mg IVP once; RASS on ADMIN: Combtv4, iw Very Agttd3, Agttd2, Rstlss1, AlertClm0, Drwsy-1, Lt Sdtn-2, Mod Sdtn-3, Dp Sdtn-4, UnArsble-5 13:56 Drug: Dilaudid 0.5 mg Route: IVP; Site: right antecubital; iw 14:40 Follow up: Response: No adverse reaction; Pain is decreased; RASS: Alert and Calm (0) iw 15:06 Drug: LevaQUIN 500 mg Volume: 100 ml; Route: IVPB; Infused Over: 60 mins; Site: right em antecubital; 16:10 Follow up: Response: No adverse reaction; IV Status: Completed infusion; IV Intake: em 100ml 16:23 Drug: Dilaudid 0.5 mg Route: IVP; Site: right antecubital; iw 16:32 Follow up: Response: No adverse reaction; Pain is decreased; RASS: Alert and Calm (0) em 16:23 Drug: Phenergan 12.5 mg Route: IVP; Site: right antecubital; iw 16:32 Follow up: Response: No adverse reaction; Nausea is decreased em Intake: 16:05 IV: 1000ml; Total: 1000ml. em 16:10 IV: 100ml; Total: 1100ml. em Outcome: 14:53 ER care complete, transfer ordered by . kb 17:03 [place] by ground [place] [facility] [facility] [place]. em X-rays sent w/ patient. 17:03 Condition: good 17:03 Instructed on the need for transfer, Demonstrated understanding of instructions. 17:04 Patient left the ED. em Signatures: Dispatcher [employer] EDEsmer Yip, NURSING HOME ASSISTANT-C NURSING HOME ASSISTANT-CkShana Aleman Edgar, RAILCAR CARPENTER RAILCAR CARPENTER em Jewels Lopez Irene, MAKEDA RN Jena Galan tt1 Mallory Lundberg sg3 Corrections: (The following items were deleted from the chart) 12:47 12:00 Response: No adverse reaction; Pain is unchanged, physician notified em em 17:03 13:00 Reassessment: Patient appears in no apparent distress at this time. pt reports em pain is unchanged, provider notified em
--- NOTE | 2019-03-24 14:55 | EDPHYS ---
Physician Documentation [facility] Name: Tere Urbina Age: 58 yrs Sex: Female : 1960 Arrival Date: 03/24/2019 Time: 11:01 Bed 19 Private MD: ED Physician Wilfredo Arias HPI: 03/24 12:01 This 58 yrs old Female presents to ER via Wheelchair with complaints of kb Abdominal Pain, Back Pain, Nausea. 12:01 The patient presents with abdominal pain in the right upper quadrant. Onset: The kb symptoms/episode began/occurred 1 hour(s) ago. The symptoms radiate to Associated signs and symptoms: none. The symptoms are described as constant. Modifying factors: The symptoms are alleviated by nothing, the symptoms are aggravated by nothing. Severity of pain: At its worst the pain was moderate in the emergency department the pain is unchanged. The patient has not experienced similar symptoms in the past. The patient has not recently seen a physician. Historical: - Allergies: 11:28 Ceclor; iw 11:28 Keflex; iw 11:28 PENICILLINS; iw - Home Meds: 11:28 pantoprazole 40 mg Oral TbEC 1 tab once daily [Active]; levothyroxine 100 mcg tab 1 tab iw once daily [Active]; Singulair 10 mg Oral tab 1 tab once daily [Active]; - PMHx: 11:28 GERD; Hypothyroidism; ibs; seasonal allergies; iw - PSHx: 11:28 patrial hysterectomy; Tonsillectomy; Knee surgery; iw - Immunization history:: Adult Immunizations not up to date. - Social history:: Smoking status: Patient uses tobacco products, smokes one-half pack cigarettes per day. - Ebola Screening: : Patient negative for fever greater than or equal to 101.5 degrees Fahrenheit, and additional compatible Ebola Virus Disease symptoms Patient denies exposure to infectious person Patient denies travel to an Ebola-affected area in the 21 days before illness onset No symptoms or risks identified at this time. ROS: 11:59 Constitutional: Negative for fever, chills, and weight loss, ENT: Negative for injury, kb pain, and discharge, Neck: Negative for injury, pain, and swelling, Cardiovascular: Negative for chest pain, palpitations, and edema, Respiratory: Negative for shortness of breath, cough, wheezing, and pleuritic chest pain, Back: Negative for injury and pain, : Negative for injury, bleeding, discharge, and swelling, MS/Extremity: Negative for injury and deformity, Skin: Negative for injury, rash, and discoloration, Neuro: Negative for headache, weakness, numbness, tingling, and seizure. 11:59 Abdomen/GI: Positive for abdominal pain, Negative for nausea, vomiting, and diarrhea, constipation, abdominal cramps, abdominal distension, anorexia. Exam: 11:59 Constitutional: This is a well developed, well nourished patient who is awake, alert, kb and in no acute distress. Head/Face: Normocephalic, atraumatic. ENT: Nares patent. No nasal discharge, no septal abnormalities noted. Tympanic membranes are normal and external auditory canals are clear. Oropharynx with no redness, swelling, or masses, exudates, or evidence of obstruction, uvula midline. Mucous membranes moist. Neck: Trachea midline, no thyromegaly or masses palpated, and no cervical lymphadenopathy. Supple, full range of motion without nuchal rigidity, or vertebral point tenderness. No Meningismus. Chest/axilla: Normal chest wall appearance and motion. Nontender with no deformity. No lesions are appreciated. Cardiovascular: Regular rate and rhythm with a normal S1 and S2. No gallops, murmurs, or rubs. Normal PMI, no JVD. No pulse deficits. Respiratory: Lungs have equal breath sounds bilaterally, clear to auscultation and percussion. No rales, rhonchi or wheezes noted. No increased work of breathing, no retractions or nasal flaring. Back: No spinal tenderness. No costovertebral tenderness. Full range of motion. Skin: Warm, dry with normal turgor. Normal color with no rashes, no lesions, and no evidence of cellulitis. MS/ Extremity: Pulses equal, no cyanosis. Neurovascular intact. Full, normal range of motion. Neuro: Awake and alert, GCS 15, oriented to person, place, time, and situation. Cranial nerves II-XII grossly intact. Motor strength 5/5 in all extremities. Sensory grossly intact. Cerebellar exam normal. Normal gait. 11:59 Abdomen/GI: Inspection: abdomen appears normal, Bowel sounds: normal, in all quadrants, Palpation: soft, in all quadrants, moderate abdominal tenderness, in the right upper quadrant. Vital Signs: 11:29 BP 173 / 89; Pulse 67; Resp 16; Temp 98.2; Pulse Ox 100% on R/A; Weight 91.63 kg; iw Height 5 ft. 7 in. (170.18 cm); Pain 10/10; 12:15 BP 137 / 79 LA Supine (/reg); Pulse 53; Resp 18; Pulse Ox 100% ; Pain 10/10; tt1 13:33 BP 144 / 83 LA Supine (/reg); Pulse 61; Resp 18; Pulse Ox 100% ; Pain 10/10; tt1 14:45 BP 138 / 67 LA Supine (/reg); Pulse 55; Resp 18; Pulse Ox 100% ; Pain 7/10; tt1 17:00 BP 115 / 57; Pulse 53; Resp 16; Pulse Ox 99% on R/A; Pain 5/10; em 11:29 Body Mass Index 31.64 (91.63 kg, 170.18 cm) iw MDM: 11:17 Patient medically screened. kb 11:59 Data reviewed: vital signs, nurses notes. Data interpreted: Pulse oximetry: on room air kb is 100 %. Interpretation: normal. 14:03 Physician consultation: Jared Coy MD awaiting callback. kb 14:26 Physician consultation: Jared Coy MD was contacted at 14:27, after a discussion of the kb case, a recommendation for transfer for higher level of care is made. 14:51 Counseling: I had a detailed discussion with the patient and/or guardian regarding: the kb historical points, exam findings, and any diagnostic results supporting the discharge/admit diagnosis, lab results, radiology results, the need to transfer to another facility, [facility] does not immediately have the required specialist. ED course: Pt accepted for transfer to [facility] by Dr Luke (hospitalist). Awaiting callback from . 15:14 ED course: Dr Aceves () accepted pt for consult . kb 03/24 11:26 Order name: Basic Metabolic Panel; Complete Time: 12:14 kb 03/24 11:26 Order name: CBC with Diff; Complete Time: 12:29 kb 03/24 11:26 Order name: Hepatic Function; Complete Time: 12:14 kb 03/24 11:26 Order name: Lipase; Complete Time: 12:14 kb 03/24 11:26 Order name: US Abdomen Limited; Complete Time: 12:34 kb 03/24 12:06 Order name: Manual Differential; Complete Time: 12:29 EDMS 03/24 12:47 Order name: CT-ABD ; Complete Time: 13:26 EDMS 03/24 11:26 Order name: IV Saline Lock; Complete Time: 11:47 kb 03/24 11:26 Order name: Labs collected and sent; Complete Time: 11:47 kb Administered Medications: 11:46 Drug: NS 0.9% 1000 ml Route: IV; Rate: 1000 ml; Site: right antecubital; iw 16:05 Follow up: IV Status: Completed infusion; IV Intake: 1000ml em 11:46 Drug: Zofran 4 mg Route: IVP; Site: right antecubital; iw 12:06 Follow up: Response: No adverse reaction; Nausea is decreased em 11:46 Drug: morphine 4 mg Route: IVP; Site: right antecubital; iw 12:47 Follow up: Response: No adverse reaction; Pain is unchanged, physician notified; RASS: em Alert and Calm (0) 12:06 Drug: fentaNYL (PF) 25 mcg Route: IVP; Site: right antecubital; iw 12:48 Follow up: Response: No adverse reaction; Pain is unchanged, physician notified em 12:48 Drug: fentaNYL (PF) 25 mcg Route: IVP; Site: right antecubital; em 13:15 Follow up: Response: No adverse reaction; Pain is unchanged, physician notified em 13:18 Drug: TORadol - Ketorolac 15 mg Route: IVP; Site: right antecubital; iw 13:50 Follow up: Response: No adverse reaction; Pain is decreased em 13:18 Drug: Zofran 4 mg Route: IVP; Site: right antecubital; iw 13:50 Follow up: Response: No adverse reaction; Nausea is decreased em 13:56 Not Given (Other Intervention Used): Dilaudid 1 mg IVP once; RASS on ADMIN: Combtv4, iw Very Agttd3, Agttd2, Rstlss1, AlertClm0, Drwsy-1, Lt Sdtn-2, Mod Sdtn-3, Dp Sdtn-4, UnArsble-5 13:56 Drug: Dilaudid 0.5 mg Route: IVP; Site: right antecubital; iw 14:40 Follow up: Response: No adverse reaction; Pain is decreased; RASS: Alert and Calm (0) iw 15:06 Drug: LevaQUIN 500 mg Volume: 100 ml; Route: IVPB; Infused Over: 60 mins; Site: right em antecubital; 16:10 Follow up: Response: No adverse reaction; IV Status: Completed infusion; IV Intake: em 100ml 16:23 Drug: Dilaudid 0.5 mg Route: IVP; Site: right antecubital; iw 16:32 Follow up: Response: No adverse reaction; Pain is decreased; RASS: Alert and Calm (0) em 16:23 Drug: Phenergan 12.5 mg Route: IVP; Site: right antecubital; iw 16:32 Follow up: Response: No adverse reaction; Nausea is decreased em Disposition: 03/24/19 14:[address] [facility]. Diagnosis are Upper abdominal pain, unspecified, 9mm stone in cystic duct. - Reason for transfer: Higher level of care. - Accepting physician is Dr Luke. - Condition is Stable. - Problem is new. - Symptoms are unchanged. Addendum: 03/26/2019 09:31 Co-signature as Attending Physician, Wilfredo Arias MD I agree with the assessment and c foster plan of care. Signatures: Dispatcher [employer] [facility] Esmer Thompson, SALES ADVISORY MANAGER-C SALES ADVISORY MANAGER-Ckb Wilfredo Arias MD MD cha Munoz, Edgar, OUTSOLE TACKER OUTSOLE TACKER em Irasema Robles, RN RN iw Corrections: (The following items were deleted from the chart) 03/24 12:47 12:16 Abdomen Pelvis W Con+CT.RAD.BRZ ordered. [facility] 15:14 14:53 03/24/2019 14:[address] [facility]. Diagnosis is kb Upper abdominal pain, unspecified; 9mm stone in cystic duct. Reason for transfer: Higher level of care. Accepting physician is Dr Heart. Condition is Stable. Problem is new. Symptoms are unchanged. kb 15:15 14:51 ED course: Pt accepted for transfer to [facility] by Dr Heart (hospitalist). kb Awaiting callback from GI. kb 17:04 15:14 03/24/2019 14:[address] [facility]. Diagnosis is em Upper abdominal pain, unspecified; 9mm stone in cystic duct. Reason for transfer: Higher level of care. Accepting physician is Dr Luke. Condition is Stable. Problem is new. Symptoms are unchanged. kb
[2019-03-24] MEDS ORDERED: Levofloxacin500mg IV 500 MG/100 ML BAG IV ONE (14:58)
[2019-03-24] MEDS ORDERED: PROMETHAZINE HCL 50 MG/ML AMP IM ONE (15:56)
[2019-03-24] MEDS ORDERED: PROMETHAZINE 25 MG/ML VIAL ONE (16:15)
[2019-03-24 17:27] VITALS: TEMP 98.2
[2019-03-24 17:32] VITALS: BP 115/57; O2SAT 99
== END 2019-03-24 17:04 | disposition short-term general hospital (02) ==
LOC: ER 10:58
DX: K80.20 Calculus of gallbladder without cholecystitis without obstruction (principal); E03.9 Hypothyroidism, unspecified; J30.2 Other seasonal allergic rhinitis; F17.210 Nicotine dependence, cigarettes, uncomplicated; Z88.1 Allergy status to other antibiotic agents; Z88.0 Allergy status to penicillin
CPT/HCPCS: 96365; 96361; 85025; 80048; 36415; 80076; 83690; 74176; 76705; 96375; 99285; J2550; J3010; J1170 ×2; J7030; J2405 ×2

== ENCOUNTER 2019-04-17 15:41 | Emergency (ER) | payer OTHER ==
--- OUTSIDE RECORDS SUMMARY | 2019-04-17 15:43 | XMS REPORT ---
:1960 Author Organization [facility] Address [address] [place] [address] Dr. Goff [address] [place] [id number] Care Team Providers Name Role Phone CORY MELTON Unavailable Unavailable Problems This patient has no known problems. Allergies, Adverse Reactions, Alerts This patient has no known allergies or adverse reactions. Medications This patient has no known medications. Results Test Description Test Time Test Comments Text Results Atomic Results Result Comments ANAEROBIC CULTURE 2019-03-30 18:13:00 Test Item Value Reference Range Comments CULTURE (BEAKER) (test tlii=2954) No anaerobes isolated SURGICALLY OBTAINED CULTURE + GRAM [id number] 09:52:00 Test Item Value Reference Range Comments CULTURE (BEAKER) (test RAOULTELLA SPECIES <1+ Raoultella species fnzb=2308) Amikacin (test code=1) Ampicillin + Sulbactam (test code=6) Aztreonam (test code=32) Cefepime (test code=51) Cefoxitin (test code=68) Ceftazidime (test code=27) Ceftriaxone (test code=52) Ertapenem (test code=38) Gentamicin (test code=18) Levofloxacin (test code=22) Meropenem (test code=34) Piperacillin + Tazobactam (test code=29) Tetracycline (test code=2) Tobramycin (test code=25) Trimethoprim + Sulfamethoxazole (test code=47) GRAM STAIN RESULT (BEAKER) 2+ WBCs (test vexh=3909) GRAM STAIN RESULT (BEAKER) No organisms seen (test bjct=728481) TISSUE [id number] 17:27:00Surgical Pathology Report Case: [id number] Authorizing Provider: Rufus Hinds MD Collected: 03/26/2019 1435 Ordering Location: [facility] Received: 03/26/2019 1639 SERVICES Pathologist: Chencho Wilson MD Specimen: Gallbladder, gallbladder A. GALLBLADDER, CHOLECYSTECTOMY: - ACUTE AND CHRONIC CHOLECYSTITIS WITH CHOLELITHIASIS Signing Pathologist Direct Phone Line: [phone] signed by Chencho Wilson MD on 03/28/2019 at 5:27 [id number] cholecystitis Gallbladder A. Received in formalin, labeled with the patient's name and medical record number and "gallbladder" is a previously disrupted gallbladder specimen that measures 9.8 x 4.5x 1.6 cm with a 0.7 cm long x 0.4 cm in diameter cystic duct. The gallbladder serosa is pierson-pink smooth and glistening. The specimen is opened to reveal a pierson-red, velvety mucosal surface that measures0.3 cm thick. One pierson- green crushable gallstone is identified that measures 0.9 cm in greatest dimension. No gallstone is lodged into the cystic duct. The specimen is serially sectioned and no nodules or masses are identified. Incident Engineer sections are submitted in cassettes A1-A2. DR/plPerformed.[id number] 06:35:00 Test Item Value Reference Range Comments PHOSPHORUS (BEAKER) (test wdyp=022) 2.2 mg/dL 2.3-4.7 [id number] 06:35:00 Test Item Value Reference Range Comments MAGNESIUM (BEAKER) (test rywv=494) 2.0 mg/dL 1.6-2.6 BASIC METABOLIC [id number] 06:35:00 Test Item Value Reference Range Comments SODIUM (BEAKER) (test 134 meq/L 136-145 wlgo=193) POTASSIUM (BEAKER) (test 4.8 meq/L 3.5-5.1 dpqx=795) CHLORIDE (BEAKER) (test 108 meq/L 98-107 rfyw=922) CO2 (BEAKER) (test 19 meq/L 22-29 tslm=357) BLOOD UREA NITROGEN 24 mg/dL 7-21 (BEAKER) (test frwy=497) CREATININE (BEAKER) (test 0.71 mg/dL 0.57-1.25 bzwb=845) GLUCOSE RANDOM (BEAKER) 164 mg/dL 70-105 (test vnda=365) CALCIUM (BEAKER) (test 8.2 mg/dL 8.4-10.2 gvvf=515) EGFR (BEAKER) (test 85 mL/min/1.73 sq m ESTIMATED GFR IS NOT vhty=8397) ACCURATE CREATININE CLEARANCE IN PREDICTING GLOMERULAR FILTRATION RATE. ESTIMATED GFR IS NOT APPLICABLE FOR DIALYSIS PATIENTS. HEPATIC FUNCTION [id number] 06:35:00 Test Item Value Reference Range Comments TOTAL PROTEIN (BEAKER) (test iutv=596) 6.3 gm/dL 6.0-8.3 ALBUMIN (BEAKER) (test agfe=7398) 3.0 g/dL 3.5-5.0 BILIRUBIN TOTAL (BEAKER) (test iebs=112) 0.3 mg/dL 0.2-1.2 BILIRUBIN DIRECT (BEAKER) (test udaj=988) 0.2 mg/dL 0.1-0.5 ALKALINE PHOSPHATASE (BEAKER) (test jiuk=501) 87 U/L 40-150 AST (SGOT) (BEAKER) (test ppao=375) 33 U/L 5-34 ALT (SGPT) (BEAKER) (test wxvg=788) 40 U/L 6-55 CBC (HEMOGRAM ONLY)2019-03-28 05:28:00 Test Item Value Reference Range Comments WHITE BLOOD CELL COUNT (BEAKER) (test vinb=583) 11.2 K/ L 3.5-10.5 RED BLOOD CELL COUNT (BEAKER) (test tcuu=356) 3.84 M/ L 3.93-5.22 HEMOGLOBIN (BEAKER) (test krme=342) 11.0 GM/DL 11.2-15.7 HEMATOCRIT (BEAKER) (test xplr=984) 34.4 % 34.1-44.9 MEAN CORPUSCULAR VOLUME (BEAKER) (test lnhf=948) 89.6 fL 79.4-94.8 MEAN CORPUSCULAR HEMOGLOBIN (BEAKER) (test 28.6 pg 25.6-32.2 ecbm=977) MEAN CORPUSCULAR HEMOGLOBIN CONC (BEAKER) (test 32.0 GM/DL 32.2-35.5 vllh=807) RED CELL DISTRIBUTION WIDTH (BEAKER) (test 14.0 % 11.7-14.4 yvmf=165) PLATELET COUNT (BEAKER) (test howu=909) 190 K/CU MM 150-450 MEAN PLATELET VOLUME (BEAKER) (test ogfk=475) 11.8 fL 9.4-12.3 NUCLEATED RED BLOOD CELLS (BEAKER) (test 0 /100 WBC 0-0 npyk=755) [id number] 07:57:00 Test Item Value Reference Range Comments MAGNESIUM (BEAKER) (test nxvn=167) 1.6 mg/dL 1.6-2.6 BASIC METABOLIC [id number] 07:57:00 Test Item Value Reference Range Comments SODIUM (BEAKER) (test 136 meq/L 136-145 hufi=993) POTASSIUM (BEAKER) (test 4.4 meq/L 3.5-5.1 srea=494) CHLORIDE (BEAKER) (test 107 meq/L 98-107 zqkx=285) CO2 (BEAKER) (test 23 meq/L 22-29 knml=495) BLOOD UREA NITROGEN 17 mg/dL 7-21 (BEAKER) (test aint=580) CREATININE (BEAKER) (test 0.74 mg/dL 0.57-1.25 zixi=680) GLUCOSE RANDOM (BEAKER) 188 mg/dL 70-105 (test zyms=316) CALCIUM (BEAKER) (test 8.9 mg/dL 8.4-10.2 ssib=855) EGFR (BEAKER) (test 81 mL/min/1.73 sq m ESTIMATED GFR IS NOT ugaw=6668) ACCURATE CREATININE CLEARANCE IN PREDICTING GLOMERULAR FILTRATION RATE. ESTIMATED GFR IS NOT APPLICABLE FOR DIALYSIS PATIENTS. [id number] 07:15:00 Test Item Value Reference Range Comments PHOSPHORUS (BEAKER) (test reke=401) 3.0 mg/dL 2.3-4.7 HEPATIC FUNCTION [id number] 07:15:00 Test Item Value Reference Range Comments TOTAL PROTEIN (BEAKER) (test dztq=052) 6.8 gm/dL 6.0-8.3 ALBUMIN (BEAKER) (test nqsu=2434) 3.2 g/dL 3.5-5.0 BILIRUBIN TOTAL (BEAKER) (test yruv=217) 0.5 mg/dL 0.2-1.2 BILIRUBIN DIRECT (BEAKER) (test bpum=835) 0.3 mg/dL 0.1-0.5 ALKALINE PHOSPHATASE (BEAKER) (test gsqf=711) 100 U/L 40-150 AST (SGOT) (BEAKER) (test qnjb=693) 41 U/L 5-34 ALT (SGPT) (BEAKER) (test vwno=205) 50 U/L 6-55 CBC (HEMOGRAM ONLY)2019-03-27 05:33:00 Test Item Value Reference Range Comments WHITE BLOOD CELL COUNT (BEAKER) (test juqf=163) 12.7 K/ L 3.5-10.5 RED BLOOD CELL COUNT (BEAKER) (test dxit=570) 4.23 M/ L 3.93-5.22 HEMOGLOBIN (BEAKER) (test enqo=160) 12.0 GM/DL 11.2-15.7 HEMATOCRIT (BEAKER) (test xcfm=154) 37.9 % 34.1-44.9 MEAN CORPUSCULAR VOLUME (BEAKER) (test ipph=009) 89.6 fL 79.4-94.8 MEAN CORPUSCULAR HEMOGLOBIN (BEAKER) (test 28.4 pg 25.6-32.2 rumn=013) MEAN CORPUSCULAR HEMOGLOBIN CONC (BEAKER) (test 31.7 GM/DL 32.2-35.5 mehg=775) RED CELL DISTRIBUTION WIDTH (BEAKER) (test 13.5 % 11.7-14.4 pxyw=111) PLATELET COUNT (BEAKER) (test kfmd=323) 190 K/CU MM 150-450 MEAN PLATELET VOLUME (BEAKER) (test hmyq=839) 11.6 fL 9.4-12.3 NUCLEATED RED BLOOD CELLS (BEAKER) (test 0 /100 WBC 0-0 wipy=153) SPIN/CONCENTRATION [id number] 02:54:00 Test Item Value Reference Range Comments CONCENTRATION CHARGED (BEAKER) (test pulr=8833) Done SODIUM NA-STAT [id number] 14:39:00 Test Item Value Reference Range Comments SODIUM (BEAKER) (test pwiu=498) 135 meq/L 135-148 POTASSIUM-STAT [id number] 14:39:00 Test Item Value Reference Range Comments POTASSIUM (BEAKER) (test yblw=168) 3.6 meq/L 3.6-5.5 HGB/HCT (H&H) - STAT [id number] 14:39:00 Test Item Value Reference Range Comments HEMOGLOBIN (BEAKER) (test bney=947) 13.5 g/dL 12.0-15.0 HEMATOCRIT (BEAKER) (test fqqo=018) 40.0 % 36.0-45.0 CALCIUM, [id number] 14:39:00 Test Item Value Reference Range Comments CALCIUM IONIZED (BEAKER) (test chbq=749) 1.13 mmol/L 1.12-1.27 PH, BLOOD (BEAKER) (test fkqq=7318) 7.47 BLOOD GAS, [id number] 14:39:00 Test Item Value Reference Range Comments PH ARTERIAL (BEAKER) (test lull=995) 7.47 7.35-7.45 PCO2 ARTERIAL (BEAKER) (test eotq=404) 32 mmHg 35-45 PO2 ARTERIAL (BEAKER) (test nhrx=390) 155 mmHg 80-90 O2 SATURATION ARTERIAL (BEAKER) (test burx=999) 99.1 % 96.0-97.0 HCO3 ARTERIAL (BEAKER) (test yedj=350) 23 mmol/L 21-29 BASE EXCESS ARTERIAL (BEAKER) (test kdsc=660) 0.1 mmol/L -2.0-3.0 PATIENT TEMPERATURE (BEAKER) (test mten=5399) 37.3 C FIO2 (BEAKER) (test vmpt=3096) 60.0 % GLUCOSE-STAT [id number] 14:39:00 Test Item Value Reference Range Comments GLUCOSE RANDOM (BEAKER) (test smrh=385) 151 mg/dL 70-110 HEPATIC FUNCTION [id number] 06:34:00 Test Item Value Reference Range Comments TOTAL PROTEIN (BEAKER) (test dijt=458) 7.4 gm/dL 6.0-8.3 ALBUMIN (BEAKER) (test swjv=9726) 3.6 g/dL 3.5-5.0 BILIRUBIN TOTAL (BEAKER) (test idps=117) 0.7 mg/dL 0.2-1.2 BILIRUBIN DIRECT (BEAKER) (test wbck=481) 0.4 mg/dL 0.1-0.5 ALKALINE PHOSPHATASE (BEAKER) (test xmzx=386) 125 U/L 40-150 AST (SGOT) (BEAKER) (test vzao=631) 29 U/L 5-34 ALT (SGPT) (BEUMER) (test fmbg=678) 51 U/L 6-55 PROTHROMBIN [id number] 06:17:00 Test Item Value Reference Range Comments PROTIME (SAILAJA) (test jiqt=490) 14.8 seconds 11.9-14.2 INR (SAILAJA) (test jbwe=536) 1.2 <=5.9 Effective 01/10/2019: PT Reference Range ChangeNew: 11.9-14.2 Previous: 11.7- 14.7RECOMMENDED COUMADIN/WARFARIN INR THERAPY RANGESSTANDARD DOSE: 2.0-3.0 Includes: PROPHYLAXIS for venous thrombosis, systemic embolization; TREATMENT for venous thrombosis and/or pulmonary embolus.HIGH RISK: Target INR is2.5-3.5 for patients wiht mechanical heart valves.MR, ABDOMEN, [id number] 16:16: 00FINAL REPORT TECHNIQUE: MRI of the abdomen and MRCP WITHOUT intravenous contrast. 3-D volume reconstructions were obtained to evaluate the biliary ductal system. INDICATION: CholelithiasisVery dilated CBD with cystic duct stone on CT. COMPARISON: None. FINDINGS: ABSENCE OF INTRAVENOUS CONTRAST DECREASES SENSITIVITY FOR DETECTION OF FOCAL LESIONS AND VASCULAR PATHOLOGY. LOWER THORAX: Unremarkable. LIVER: The liver is heterogeneous with decreased signal on out of phase imaging.There is diverticular stricture to diffusion in the right hepatic lobe.BILIARY: The gallbladder is not distended but has a thickened wall with layering sludge and a stone in the gallbladder neck. The gallbladder neck stone measures 0.9 cm. The common bile duct measures 0.8 cm in diameter. The narrowing of the common bile duct at the tono hepatis is likely extrinsic from the swollen liver. The mild thickening of the gallbladder fundus is most likely due to adenomyomatosis. SPLEEN: No splenomegaly.PANCREAS: No focal masses or ductal dilatation. ADRENALS: No adrenal nodules.KIDNEYS/URETERS: No hydronephrosis or solid mass lesions. PERITONEUM/RETROPERITONEUM: No free fluid.LYMPH NODES: No lymphadenopathy.VESSELS: Unremarkable. GI TRACT: No distention or wall thickening. Mild diverticulosis of the left colon. BONES AND SOFT TISSUES: Unremarkable. IMPRESSION: 1.The stone in the gallbladder neck, surrounding inflammatory changes, and gallbladder wall thickening are concerning for acute cholecystitis. 2.The common bile duct is dilated up to 8 cm. However, no definite choledocholithiasis is seen. 3.The thickening of the gallbladder fundus is most likely due to adenomyomatosis. However, if a cholecystectomy is not anticipated, a follow-up MRI is recommended in six months to document stability since this is not definitive. 4.Diffuse fatty infiltration of the liver. 5.Reticular restricted diffusion in the right hepatic lobe is nonspecific. This could be due to inflammation and infection. Signed: Waldemar Sher MDReport Verified Date/Time: 03/25/2019 16:16:25 Reading Location: [facility] B1 C013Y CT Body Reading Room COMPREHENSIVE METABOLIC [id number] 05:51:00 Test Item Value Reference Range Comments TOTAL PROTEIN (BEAKER) 7.4 gm/dL 6.0-8.3 (test yudw=799) ALBUMIN (BEAKER) (test 3.6 g/dL 3.5-5.0 lqpp=8046) ALKALINE PHOSPHATASE 126 U/L 40-150 (BEAKER) (test eqqt=735) BILIRUBIN TOTAL (BEAKER) 0.8 mg/dL 0.2-1.2 (test pocg=299) SODIUM (BEAKER) (test 137 meq/L 136-145 zxhp=983) POTASSIUM (BEAKER) (test 4.2 meq/L 3.5-5.1 pdug=190) CHLORIDE (BEAKER) (test 107 meq/L 98-107 gfsr=725) CO2 (BEAKER) (test 23 meq/L 22-29 slid=631) BLOOD UREA NITROGEN 12 mg/dL 7-21 (BEAKER) (test fnjf=708) CREATININE (BEAKER) (test 0.77 mg/dL 0.57-1.25 wlpc=523) GLUCOSE RANDOM (BEAKER) 134 mg/dL 70-105 (test hsbh=724) CALCIUM (BEAKER) (test 9.3 mg/dL 8.4-10.2 xidt=529) AST (SGOT) (BEAKER) (test 44 U/L 5-34 vzvp=207) ALT (SGPT) (BEAKER) (test 62 U/L 6-55 mkjy=937) EGFR (BEAKER) (test 78 mL/min/1.73 sq m ESTIMATED GFR IS NOT nflo=4162) ACCURATE CREATININE CLEARANCE IN PREDICTING GLOMERULAR FILTRATION RATE. ESTIMATED GFR IS NOT APPLICABLE FOR DIALYSIS PATIENTS. CBC (HEMOGRAM ONLY)2019-03-25 05:09:00 Test Item Value Reference Range Comments WHITE BLOOD CELL COUNT (BEAKER) (test mmwi=091) 10.3 K/ L 3.5-10.5 RED BLOOD CELL COUNT (BEAKER) (test pisd=036) 4.57 M/ L 3.93-5.22 HEMOGLOBIN (BEAKER) (test nywk=970) 13.0 GM/DL 11.2-15.7 HEMATOCRIT (BEAKER) (test ryqk=241) 40.5 % 34.1-44.9 MEAN CORPUSCULAR VOLUME (BEAKER) (test kmyd=926) 88.6 fL 79.4-94.8 MEAN CORPUSCULAR HEMOGLOBIN (BEAKER) (test 28.4 pg 25.6-32.2 ocwz=166) MEAN CORPUSCULAR HEMOGLOBIN CONC (BEAKER) (test 32.1 GM/DL 32.2-35.5 ayfp=502) RED CELL DISTRIBUTION WIDTH (BEAKER) (test 13.9 % 11.7-14.4 gvvp=721) PLATELET COUNT (BEAKER) (test glva=831) 209 K/CU MM 150-450 MEAN PLATELET VOLUME (BEAKER) (test zwgz=320) 11.1 fL 9.4-12.3 NUCLEATED RED BLOOD CELLS (BEAKER) (test 0 /100 WBC 0-0 tfxn=462)
--- OUTSIDE RECORDS SUMMARY | 2019-04-17 15:43 | XMS REPORT | Clinical Summary ---
:1960 Author Organization [facility] Address [address] [place] [address] Care Team Providers Name Role Phone Unavailable Primary Care Provider Unavailable Allergies Active Allergy Reactions Severity Noted Date Comments Cefaclor Rash Low 03/24/2019 Cephalexin Rash Low 03/24/2019 Penicillins Anaphylaxis High 03/24/2019 Medications Medication Sig Dispensed Refills Start Date End Date Status levothyroxine Take 100 mcg by 0 Active (SYNTHROID, mouth Every LEVOTHROID) 100 MCG morning on an tablet empty stomach. montelukast Take 10 mg by 0 Active (SINGULAIR) 10 mg mouth nightly. tablet fexofenadine Take 180 mg by 0 Active (TIM) 180 MG mouth daily. tablet pantoprazole Take 40 mg by 0 Active (PROTONIX) 40 MG mouth daily. tablet gabapentin Take 1 capsule 60 capsule 2 03/28/2019 03/27/20 Active (NEURONTIN) 300 MG (300 mg total) 20 capsule by mouth 2 (two) times daily. bisacodyl (DULCOLAX) Place 1 12 suppository 0 03/28/2019 04/07/20 10 mg suppository suppository (10 19 mg total) rectally daily as needed for up to 10 days. ciprofloxacin HCl Take 1 tablet 14 tablet 0 03/28/2019 04/04/20 (CIPRO) 500 MG (500 mg total) 19 tablet by mouth every 12 (twelve) hours for 7 days. docusate sodium Take 1 capsule 10 capsule 0 03/29/2019 04/08/20 (COLACE) 100 MG (100 mg total) 19 capsule by mouth daily for 10 days. oxyCODONE Take 1 tablet (5 30 tablet 0 03/28/2019 04/07/20 (ROXICODONE) 5 MG mg total) by 19 immediate release mouth every 4 tablet (four) hours as needed for up to 10 days. Max Daily Amount: 30 mg cyclobenzaprine Take 1 tablet (5 30 tablet 0 03/28/2019 04/07/20 (FLEXERIL) 5 MG mg total) by 19 tablet mouth 3 (three) times daily for 10 days. Active Problems Problem Noted Date Calculus of bile duct with acute cholecystitis without obstruction 03/25/2019 Choledocholithiasis 03/25/2019 Encounters Date Type Specialty Care Team Description 04/17/2019 Outside Orders Central Scheduling Rufus Hinds, Surgery follow- up examination (Primary Dx) 03/26/2019 Anesthesia Event WadeChana 03/26/2019 Surgery Rufus Hinds, LAPAROSCOPY,CHOLECYSTECT MD PEARL 03/25/2019 Anesthesia Event Gastroenterology Alejandra Anguiano 03/24/2019 [facility] Choledocholithiasis - Encounter Medicine Erica Ferro (Primary Dx) 03/28/2019 MD Sharon Tena Shireen, MD Kulkarni, Guillermo Shepherd MD after 04/16/2018 Social History Tobacco Use Types Packs/Day Years Used Date Current Every Day Smoker 0.5 43 Smokeless Tobacco: Never Used Tobacco Cessation: Ready to Quit: No; Counseling Given: No Alcohol Use Drinks/Week oz/Week Comments Yes social Sex Assigned at Date Recorded Not on file Job Start Date Occupation Industry Not on file Not on file Not on file Travel History Travel Start Travel End No recent travel history available. Last Filed Vital Signs Vital Sign Reading Time Taken Blood Pressure 96/51 03/28/2019 4:52 AM CDT Pulse 50 03/28/2019 4:52 AM CDT Temperature 35.8 C (96.4 F) 03/28/2019 4:52 AM CDT Respiratory Rate 18 03/28/2019 4:52 AM CDT Oxygen Saturation 99% 03/28/2019 4:52 AM CDT Inhaled Oxygen Concentration - - Weight 91.7 kg (202 lb 1.6 oz) 03/25/2019 6:00 AM CDT Height - - Body Mass Index - - Plan of Treatment Date Type Specialty Care Team Description 04/19/2019 Appointment Computed Tomography Rufus Hinds MD [address] [address] [phone] [facility] Room Procedures Procedure Name Priority Date/Time Associated Diagnosis Comments HEPATIC FUNCTION Routine 03/28/2019 4:58 Results for this PANEL AM CDT procedure are in the results section. PHOSPHORUS Routine 03/28/2019 4:58 Results for this AM CDT procedure are in the results section. MAGNESIUM Routine 03/28/2019 4:58 Results for this AM CDT procedure are in the results section. BASIC METABOLIC Routine 03/28/2019 4:58 Results for this PANEL (7) AM CDT procedure are in the results section. CBC (HEMOGRAM ONLY) Routine 03/28/2019 4:58 Results for this AM CDT procedure are in the results section. TRANSFUSION SERVICE 03/27/2019 6:00 REPORT - SCAN PM CDT HEPATIC FUNCTION Routine 03/27/2019 5:09 Results for this PANEL AM CDT procedure are in the results section. PHOSPHORUS Routine 03/27/2019 5:09 Results for this AM CDT procedure are in the results section. MAGNESIUM Routine 03/27/2019 5:09 Results for this AM CDT procedure are in the results section. BASIC METABOLIC Routine 03/27/2019 5:09 Results for this PANEL (7) AM CDT procedure are in the results section. CBC (HEMOGRAM ONLY) Routine 03/27/2019 5:09 Results for this AM CDT procedure are in the results section. TISSUE EXAM AP Routine 03/26/2019 2:35 Results for this PM CDT procedure are in the results section. HGB/HCT (H&H) - STAT 03/26/2019 2:31 Results for this STAT LAB PM CDT procedure are in the results section. GLUCOSE-STAT LAB STAT 03/26/2019 2:31 Results for this PM CDT procedure are in the results section. POTASSIUM-STAT LAB STAT 03/26/2019 2:31 Results for this PM CDT procedure are in the results section. SODIUM NA-STAT LAB STAT 03/26/2019 2:31 Results for this PM CDT procedure are in the results section. BLOOD GAS, ARTERIAL STAT 03/26/2019 2:31 Results for this PM CDT procedure are in the results section. CALCIUM, IONIZED STAT 03/26/2019 2:31 Results for this PM CDT procedure are in the results section. SURGICALLY OBTAINED STAT 03/26/2019 1:20 Results for this CULTURE + GRAM PM CDT procedure are in STAIN the results section. FUNGUS CULTURE + STAT 03/26/2019 1:20 SMEAR PM CDT ANAEROBIC CULTURE STAT 03/26/2019 1:20 Results for this PM CDT procedure are in the results section. AFB CULTURE + SMEAR STAT 03/26/2019 1:20 PM CDT SPIN/CONCENTRATION Routine 03/26/2019 1:20 Results for this CHARGE PM CDT procedure are in the results section. LAPAROSCOPY,CHOLECY 03/26/2019 12:10 Acute cholecystitis STECTOMY PM CDT Special Needs REQ: TF ABORH, MANUAL STAT 03/26/2019 5:58 AM CDT TYPE AND SCREEN, AUTOMATED Routine 03/26/2019 5:33 AM CDT HEPATIC FUNCTION PANEL Routine 03/26/2019 5:33 AM CDT PROTHROMBIN TIME/INR Routine 03/26/2019 5:33 AM CDT MR ABDOMEN WO CONTRAST MRCP STAT 03/25/2019 2:43 PM CDT COMPREHENSIVE METABOLIC Routine 03/25/2019 4:36 AM CDT Results for this PANEL procedure are in the results section. CBC (HEMOGRAM ONLY) Routine 03/25/2019 4:36 AM CDT after 04/16/2018 Results CBC (Hemogram only) (03/28/2019 4:58 AM CDT)Only the most recent of3 resultswithin the time period is included. WBC 11.2 (H) 3.5 - 10.5 K/L [facility] RBC 3.84 (L) 3.93 - 5.22 M/L [facility] Hemoglobin 11.0 (L) 11.2 - 15.7 GM/DL [facility] Hematocrit 34.4 34.1 - 44.9 % [facility] MCV 89.6 79.4 - 94.8 fL [facility] MCH 28.6 25.6 - 32.2 pg [facility] MCHC 32.0 (L) 32.2 - 35.5 GM/DL [facility] RDW 14.0 11.7 - 14.4 % [facility] Platelets 190 150 - 450 K/CU MM [facility] MPV 11.8 9.4 - 12.3 fL [facility] nRBC 0 0 - 0 /100 WBC [facility] Specimen Blood Performing Organization Address City/[facility]/Zipcode Phone Number [address] [address] CENTER Phosphorus (03/28/2019 4:58 AM CDT)Only the most recent of2 resultswithin the time period is included. Phosphorus 2.2 (L) 2.3 - 4.7 mg/dL [facility] Specimen Blood Performing Organization Address City/[facility] Cent[facility]ode Phone Number [address] [address] CENTER Magnesium (03/28/2019 4:58 AM CDT)Only the most recent of2 resultswithin the time period is included. Magnesium 2.0 1.6 - 2.6 mg/dL [facility] Specimen Blood Performing Organization Address City/[facility] Cent[facility]ode Phone Number [address] [address] CENTER Hepatic function panel (03/28/2019 4:58 AM CDT)Only the most recent of3 resultswithin the time period is included. Protein, Total 6.3 6.0 - 8.3 gm/dL [facility] Albumin 3.0 (L) 3.5 - 5.0 g/dL [facility] Total Bilirubin 0.3 0.2 - 1.2 mg/dL [facility] Bilirubin, Direct 0.2 0.1 - 0.5 mg/dL [facility] Alkaline Phosphatase 87 40 - 150 U/L [facility] AST 33 5 - 34 U/L [facility] ALT 40 6 - 55 U/L [facility] Specimen Blood Performing Organization Address City/[facility]/Zipcode Phone Number [facility] [address] [place] [address] [phone] CENTER Basic Metabolic Panel (03/28/2019 4:58 AM CDT)Only the most recent of2 resultswithin the time period is included. Sodium 134 (L) 136 - 145 meq/L [facility] Potassium 4.8 3.5 - 5.1 meq/L [facility] Chloride 108 (H) 98 - 107 meq/L [facility] CO2 19 (L) 22 - 29 meq/L [facility] BUN 24 (H) 7 - 21 mg/dL [facility] Creatinine 0.71 0.57 - 1.25 mg/dL [facility] Glucose 164 (H) 70 - 105 mg/dL [facility] Calcium 8.2 (L) 8.4 - 10.2 mg/dL [facility] EGFR 85Comment: ESTIMATED GFR IS mL/min/1.73 sq m [facility] NOT ACCURATE CREATININE [facility] CLEARANCE IN PREDICTING GLOMERULAR FILTRATION RATE. ESTIMATED GFR IS NOT APPLICABLE FOR DIALYSIS PATIENTS. Specimen Blood Performing Organization Address City/State/Zipcode Phone Number [facility] [address] [place] [address] [phone] [facility] TRANSFUSION SERVICE REPORT - SCAN (03/27/2019 6:00 PM CDT) Narrative Performed At Tissue Exam (03/26/2019 2:35 PM CDT) Case Report Surgical Pathology Report Case: [id number] [facility] Authorizing Provider:Rufus Hinds MDCollected: 03/26/2019 1435 [facility] Ordering Location: [facility] Received: 03/26/2019 1639 SERVICES Pathologist: Chencho Wilson MD Specimen:Gallbladder, gallbladder DIAGNOSIS A. GALLBLADDER, CHOLECYSTECTOMY: [facility] - ACUTE AND CHRONIC CHOLECYSTITIS WITH CHOLELITHIASIS [facility] Signing Pathologist Direct Phone Line: [phone] CPT Code(s) 15212 [facility] CLINICAL HISTORY Acute cholecystitis [facility] SPECIMEN SOURCE Gallbladder [facility] GROSS DESCRIPTION A. Received in formalin, [facility] labeled with the patient's [facility] name and medical record number and "gallbladder" is a previously disrupted gallbladder specimen that measures 9.8 x 4.5 x 1.6 cm with a 0.7 cm long x 0.4 cm in diameter cystic duct. The gallbladder serosa is pierson-pink smooth and glistening. The specimen is opened to reveal a pierson-red, velvety mucosal surface that measures 0.3 cm thick. One pierson-green crushable gallstone is identified that measures 0.9 cm in greatest dimension. No gallstone is lodged into the cystic duct. The specimen is serially sectioned and no nodules or masses are identified. [employer] sections are submitted in cassettes A1-A2. DR/pl MICROSCOPIC DESCRIPTION Performed. [facility] Specimen Tissue Performing Organization Address City/[facility] Centercode Phone Number [address] [address] CENTER Potassium-Stat Lab (03/26/2019 2:31 PM CDT) Potassium 3.6 3.6 - 5.5 meq/L [facility] Specimen Blood, Arterial Performing Organization Address [facility] Centercode Phone Number [address] [address] [phone] CENTER Sodium Na-Stat Lab (03/26/2019 2:31 PM CDT) Sodium 135 135 - 148 meq/L [facility] Specimen Blood, Arterial Performing Organization Address [facility] Centercoma Phone Number [address] [address] [phone] [facility] Glucose-Stat Lab (03/26/2019 2:31 PM CDT) Glucose 151 (H) 70 - 110 mg/dL [facility] Specimen Blood, Arterial Performing Organization Address [facility] Phone Number [address] [address] [phone] [facility] HGB/HCT (H&H)-Stat Lab (03/26/2019 2:31 PM CDT) Hemoglobin 13.5 12.0 - 15.0 g/dL [facility] Hematocrit 40.0 36.0 - 45.0 % [facility] Specimen Blood, Arterial Performing Organization Address [facility] Phone Number [address] [address] [phone] [facility] Calcium, Ionized (03/26/2019 2:31 PM CDT) Calcium, Ion 1.13 1.12 - 1.27 mmol/L [facility] pH, Blood 7.47 [facility] Specimen Blood Performing Organization Address [facility] Phone Number [address] [address] [phone] [facility] Blood gas, arterial (03/26/2019 2:31 PM CDT) pH, Arterial 7.47 (H) 7.35 - 7.45 [facility] pCO2, Arterial 32 (L) 35 - 45 mmHg [facility] pO2, Arterial 155 (H) 80 - 90 mmHg [facility] O2 Sat, Arterial 99.1 (H) 96.0 - 97.0 % [facility] HCO3, Arterial 23 21 - 29 mmol/L [facility] Base Excess, Arterial 0.1 -2.0 - 3.0 mmol/L [facility] Patient Temperature 37.3 C [facility] FIO2 60.0 % [facility] Specimen Blood, Arterial Performing Organization Address City/[facility] Centercode Phone Number [facility] [address] [place] [phone] [facility] Anaerobic culture (03/26/2019 1:20 PM CDT) Result No anaerobes isolated [facility] Specimen Other Performing Organization Address [facility] Phone Number [address] [address] [phone] [facility] Surgically obtained culture + gram stain (03/26/2019 1:20 PM CDT) Result <1+ Raoultella species (A) [facility] Gram Stain Result 2+ WBCs [facility] Gram Stain Result No organisms seen [facility] Specimen Other Organism Antibiotic Method Susceptibility Raoultella species Amikacin <=2: Susceptible Raoultella species Ampicillin + Sulbactam 8: Susceptible Raoultella species Aztreonam <=1: Susceptible Raoultella species Cefepime <=1: Susceptible Raoultella species Cefoxitin <=4: Susceptible Raoultella species Ceftazidime <=1: Susceptible Raoultella species Ceftriaxone <=1: Susceptible Raoultella species Ertapenem <=0.5: Susceptible Raoultella species Gentamicin <=1: Susceptible Raoultella species Levofloxacin <=0.12: Susceptible Raoultella species Meropenem <=0.25: Susceptible Raoultella species Piperacillin + Tazobactam <=4: Susceptible Raoultella species Tetracycline <=1: Susceptible Raoultella species Tobramycin <=1: Susceptible Raoultella species Trimethoprim + Sulfamethoxazole <=20: Susceptible Performing Organization Address City/[facility]/Zipcode Phone Number [address] [phone] CENTER SPIN/CONCENTRATION CHARGE (03/26/2019 1:20 PM CDT) Concentration charged Done [facility] Specimen Other Performing Organization Address City/State/Zipcode Phone Number [address] [address] CENTER ABORH, manual (03/26/2019 5:58 AM CDT) ABO Grouping A [facility] Rh Factor POS [facility] Specimen Blood Performing Organization Address [facility] Centercode Phone Number [address] [address] [phone] Type and screen, automated (03/26/2019 5:33 AM CDT) ABO/RH AUTOMATED (BEAKER) A POSITIVE [facility] Ab Scrn NEGATIVE [facility] Specimen Blood Performing Organization Address [facility] Centercode Phone Number [address] [address] Prothrombin time/INR (03/26/2019 5:33 AM CDT) Protime 14.8 (H) 11.9 - 14.2 seconds [facility] INR 1.2 <=5.9 [facility] Specimen Blood Narrative Performed At Effective 01/10/2019: PT Reference Range [facility] Change New: 11.9-14.2Previous: 11.7-14.7 RECOMMENDED COUMADIN/WARFARIN INR THERAPY RANGES STANDARD DOSE: 2.0-3.0Includes: PROPHYLAXIS for venous thrombosis, systemic embolization; TREATMENT for venous thrombosis and/or pulmonary embolus. HIGH RISK: Target INR is 2.5-3.5 for patients wiht mechanical heart valves. Performing Organization Address City/State/Zipcode Phone Number [facility] [address] CENTER MR abdomen without IV contrast MRCP (03/25/2019 2:43 PM CDT) Specimen Narrative Performed At FINAL REPORT [facility] TECHNIQUE: MRI of the abdomen and MRCP WITHOUT intravenous contrast. 3-D volume reconstructions were obtained to evaluate the biliary ductal system. INDICATION: Cholelithiasis Very dilated CBD with cystic duct stone on CT. COMPARISON: None. FINDINGS: ABSENCE OF INTRAVENOUS CONTRAST DECREASES SENSITIVITY FOR DETECTION OF FOCAL LESIONS AND VASCULAR PATHOLOGY. LOWER THORAX: Unremarkable. LIVER: The liver is heterogeneous with decreased signal on out of phase imaging. 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 BILIARY: The gallbladder is not distended but has [...] most likely due to adenomyomatosis. SPLEEN: No splenomegaly. PANCREAS: No focal masses or ductal dilatation. ADRENALS: No adrenal nodules. KIDNEYS/URETERS: No hydronephrosis or solid mass lesions. PERITONEUM/RETROPERITONEUM: No free fluid. LYMPH NODES: No lymphadenopathy. VESSELS: Unremarkable. GI TRACT: No distention or wall [...] to inflammation and infection. Signed: Waldemar Sher MD Report Verified Date/Time:03/25/2019 16:16:25 Reading Location: [facility] B1 C013Y CT Body Reading Room Procedure Note Interface, External Ris In - 03/25/2019 4:18 PM CDT FINAL REPORT TECHNIQUE: MRI of the abdomen and MRCP WITHOUT intravenous contrast. 3-D volume reconstructions were obtained to evaluate the biliary ductal system. INDICATION: Cholelithiasis Very dilated CBD with cystic duct stone on CT. COMPARISON: None. FINDINGS: ABSENCE OF INTRAVENOUS CONTRAST DECREASES SENSITIVITY FOR DETECTION OF FOCAL LESIONS AND VASCULAR PATHOLOGY. LOWER THORAX: Unremarkable. LIVER: The liver is heterogeneous with decreased signal on out of phase imaging. 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 BILIARY: The gallbladder is not distended but has [...] most likely due to adenomyomatosis. SPLEEN: No splenomegaly. PANCREAS: No focal masses or ductal dilatation. ADRENALS: No adrenal nodules. KIDNEYS/URETERS: No hydronephrosis or solid mass lesions. PERITONEUM/RETROPERITONEUM: No free fluid. LYMPH NODES: No lymphadenopathy. VESSELS: Unremarkable. GI TRACT: No distention or wall [...] to inflammation and infection. Signed: Waldemar Sher MD Report Verified Date/Time: 03/25/2019 16:16:25 Reading Location: [facility] B1 C013Y CT Body Reading Room Performing Organization Address City/State/Zipcode Phone Number [employer] Comprehensive metabolic panel (03/25/2019 4:36 AM CDT) Protein, Total 7.4 6.0 - 8.3 gm/dL [facility] Albumin 3.6 3.5 - 5.0 g/dL [facility] Alkaline Phosphatase 126 40 - 150 U/L [facility] Total Bilirubin 0.8 0.2 - 1.2 mg/dL [facility] Sodium 137 136 - 145 meq/L [facility] Potassium 4.2 3.5 - 5.1 meq/L [facility] Chloride 107 98 - 107 meq/L [facility] CO2 23 22 - 29 meq/L [facility] BUN 12 7 - 21 mg/dL [facility] Creatinine 0.77 0.57 - 1.25 mg/dL [facility] Glucose 134 (H) 70 - 105 mg/dL [facility] Calcium 9.3 8.4 - 10.2 mg/dL [facility] AST 44 (H) 5 - 34 U/L [facility] ALT 62 (H) 6 - 55 U/L [facility] EGFR 78Comment: ESTIMATED GFR mL/min/1.73 sq m [facility] IS NOT ACCURATE [facility] CREATININE CLEARANCE IN PREDICTING GLOMERULAR FILTRATION RATE. ESTIMATED GFR IS NOT APPLICABLE FOR DIALYSIS PATIENTS. Specimen Blood Performing Organization Address City/State/Zipcode Phone Number [facility] [address] [place] [address] [phone] CENTER after 04/16/2018 Insurance Payer Benefit Plan / Group Subscriber ID Type Phone Address [employer] - [employer] HMO POS xxxxxxxxx HMO/POS
[2019-04-17] MEDS ORDERED: ONDANSETRON 4 MG/2 ML VIAL ONE ×2 (17:03→18:20)
[2019-04-17] MEDS ORDERED: NA CHLORIDE 0.9% 1,000 ML ONE (17:03)
[2019-04-17 17:32] LABS: Absolute Lymphocytes (CBC) 0.8 K/uL (0.7-4.9); Basophils % 0.9 % (0-1.3); Hematocrit 42.7 % (36.0-45.0); Lymphocytes % 16.9 % (15.3-44.8); MPV 8.9 fL (7.6-11.3); RBC Red Blood Cell Count 4.95 M/uL (3.86-4.86)
[2019-04-17 17:48] LABS: Albumin 3.5 g/dL (3.4-5.0); Bilirubin Total 0.3 mg/dL (0.2-1.0); Potassium 4.4 mmol/L (3.5-5.1); Protein, Total 8.3 g/dL (6.4-8.2)
--- NOTE | 2019-04-17 18:43 | RAD REPORT ---
EXAM DESCRIPTION: CT - Abdomen Pelvis W Contrast - 04/17/2019 6:09 pm CLINICAL HISTORY: recent open sunshine, purulent drainage dehis. abd pain COMPARISON: CT imaging March 2019 TECHNIQUE: Biphasic, helical CT imaging of the abdomen and pelvis was performed following 100 ml non -ionic IV contrast. Oral contrast was given. All CT scans are performed using dose optimization technique as appropriate and may include automated exposure control or mA/KV adjustment according to patient size. FINDINGS: No suspicious findings in the lung bases. The liver, spleen, and pancreas show no suspicious findings. Cholecystectomy clips are present. No bi liary tree dilatation. Stranding is seen in the right-sided subcutaneous fatty tissues and in the rig ht upper quadrant peritoneal fatty tissues related to recent open cholecystectomy. No abscess or abno rmal fluid collections seen. No free air is seen. No dilatation of the biliary tree. Symmetric renal function is seen with no hydronephrosis or suspicious renal mass. No pyelonephritis o r acute parenchymal process. No bladder abnormalities. No adrenal abnormalities. No dilated bowel loops or bowel wall thickening. No hernia, mass or bulky lymphadenopathy. No suspicious bony findings. IMPRESSION: Patient is status post recent cholecystectomy. Fluid in stranding are minimal in the gal lbladder fossa. History indicates carrier latent wound discharge. Patient does have the expected amount of stranding in the subcutaneous fat and intraperitoneal fat related to the surgical procedure. No abscess or drainable fluid collection. No peritoneal free air collection. Cholecystectomy clips appear properly positioned. No biliary tree dilatation. No suspicion for bile l eak or other surgical complication.
--- NOTE | 2019-04-17 19:44 | ER ---
Nurse's Notes [facility] Name: Tere Urbina Age: 58 yrs Sex: Female : 1960 Arrival Date: 04/17/2019 Time: 15:45 Bed 13 Private MD: Diagnosis: Post surgical pain;Wound dehiscense;Abdominal pain Presentation: 04/17 15:55 Presenting complaint: Pt had open cholecystectomy by Dr. Rufus Hinds at [facility] on Mar hb 12, on Bactrim Day 5 for surgical site infection, c/o worsening abdominal swelling, right sided pain x 3 days, chills, sweats, and nausea today. Transition of care: patient was not received from another setting of care. Onset of symptoms was April 17, 2019. Risk Assessment: Do you want to hurt yourself or someone else? Patient reports no desire to harm self or others. Care prior to arrival: None. 15:55 Method Of Arrival: Ambulatory hb 15:55 Acuity: KAITLYNN 3 hb Historical: - Allergies: 16:03 Ceclor; hb 16:03 Keflex; hb 16:03 PENICILLINS; hb - Home Meds: 16:03 Usha 180 mg Oral tab 1 tab once daily [Active]; levothyroxine 100 mcg tab 1 tab once hb daily [Active]; montelukast 10 mg Oral tab once daily [Active]; pantoprazole 40 mg Oral TbEC 1 tab once daily [Active]; rosuvastatin 10 mg Oral tab 1 tab once daily [Active]; Singulair 10 mg Oral tab 1 tab once daily [Active]; terbinafine HCl 250 mg Oral tab 1 tab once daily [Active]; - PMHx: 16:03 Hypothyroidism; GERD; ibs; seasonal allergies; hb - PSHx: 16:03 patrial hysterectomy; Tonsillectomy; Knee surgery; Cholecystectomy; hb - Immunization history:: Adult Immunizations up to date. - Social history:: Smoking status: Patient/guardian denies using tobacco. - Ebola Screening: : No symptoms or risks identified at this time. Screenin:14 Abuse screen: Denies threats or abuse. Denies injuries from another. Nutritional rb1 screening: No deficits noted. Tuberculosis screening: Never had TB. Fall Risk No fall in past 12 months (0 pts). No secondary diagnosis (0 pts). IV access (20 points). Ambulatory Aid- None/Bed Rest/Nurse Assist (0 pts). Gait- Normal/Bed Rest/Wheelchair (0 pts) Mental Status- Oriented to own ability (0 pts). Assessment: 17:00 General: Appears uncomfortable, Behavior is calm, cooperative. Neuro: Level of ss Consciousness is awake, alert, obeys commands. Cardiovascular: Pulses are palpable in right radial artery and left radial artery. Respiratory: Respiratory effort is even, unlabored, Respiratory pattern is regular, symmetrical. GI: Abdomen is non-distended, Reports nausea. EENT: Oral mucosa is moist. Derm: Skin is intact, is healthy with good turgor, Skin is dry, Skin is pink, warm \T\ dry. normal. Musculoskeletal: Circulation, motion, and sensation intact. Range of motion: intact in all extremities, Swelling absent. 17:55 Reassessment: Patient appears in no apparent distress at this time. Patient and/or rb1 family updated on plan of care and expected duration. Pain level reassessed. Patient is alert, oriented x 3, equal unlabored respirations, skin warm/dry/pink. Patient states symptoms have improved. 19:00 Reassessment: Patient appears in no apparent distress at this time. Patient and/or jb4 family updated on plan of care and expected duration. Pain level reassessed. Patient is alert, oriented x 3, equal unlabored respirations, skin warm/dry/pink. 20:00 Reassessment: Patient appears in no apparent distress at this time. Patient and/or jb4 family updated on plan of care and expected duration. Pain level reassessed. Patient is alert, oriented x 3, equal unlabored respirations, skin warm/dry/pink. Provider at the bedside explaining discharge and follow up instructions to patient. Pt and family verbalized understanding of d/c and follow up instructions. denies further questions or concerns. Vital Signs: 16:01 BP 134 / 85; Pulse 67; Resp 16; Temp 98.4; Pulse Ox 100% on R/A; Weight 83.91 kg; hb Height 5 ft. 7 in. (170.18 cm); Pain 4/10; 17:00 BP 119 / 68; Pulse 64; Resp 15; Temp 98.1(O); Pulse Ox 99% on R/A; rb1 18:00 BP 128 / 69; Pulse 66; Resp 16; Temp 98.2(O); Pulse Ox 96% on R/A; rb1 19:00 BP 107 / 71; Pulse 63; Resp 16; Pulse Ox 96% on R/A; jb4 20:00 BP 117 / 70; Pulse 66; Resp 16; Pulse Ox 97% on R/A; jb4 16:01 Body Mass Index 28.97 (83.91 kg, 170.18 cm) hb ED Course: 15:45 Patient arrived in ED. mr 16:01 Triage completed. hb 16:03 Arm band placed on right wrist. hb 16:08 Karol Elise, RN is Primary Nurse. rb1 16:14 Reza Lind MD is Attending Physician. ps1 17:00 Patient has correct armband on for positive identification. Bed in low position. Call ss light in reach. 17:04 Radiology exam delayed due to lab results not completed at this time. (BUN/Creatinine). nj 17:10 Inserted saline lock: 20 gauge in right antecubital area, using aseptic technique. rb1 ,using aseptic technique. Insertion by MAKEDA Aleman Blood collected. 17:21 Radiology exam delayed due to lab results not completed at this time. (BUN/Creatinine). nj 18:09 CT Abd/Pelvis - IV Contrast Only In Process Unspecified. EDMS 19:00 Report given to MAKEDA Gallegos. rb1 20:00 No provider procedures requiring assistance completed. IV discontinued, intact, jb4 bleeding controlled, No redness/swelling at site. Pressure dressing applied. Administered Medications: 17:13 Drug: NS 0.9% 1000 ml Route: IV; Rate: 1 bolus; Site: right antecubital; rb1 17:13 Drug: Zofran 4 mg Route: IVP; Site: right antecubital; rb1 17:18 Follow up: Response: No adverse reaction; Nausea is decreased rb1 18:25 Drug: Zofran 4 mg Route: IVP; Site: right antecubital; rb1 Outcome: 19:40 Discharge ordered by . ps1 20:00 Discharged to home ambulatory, with family. jb4 20:00 Condition: stable 20:00 Discharge instructions given to patient, family, Instructed on discharge instructions, follow up and referral plans. medication usage, Demonstrated understanding of instructions, follow-up care, medications, Prescriptions given X 3. 20:10 Patient left the ED. jb4 Signatures: Dispatcher [employer] EDMS Anny Hong mr Mary Grossman, RN RN Karol Jansen RN RN Kandice Balderas RN RN hb Bryson, James, RN RN jbIsael [place] Phillip, MD MD ps1
--- NOTE | 2019-04-17 19:44 | EDPHYS ---
Physician Documentation [facility] Name: Tere Urbina Age: 58 yrs Sex: Female : 1960 Arrival Date: 04/17/2019 Time: 15:45 Bed 13 Private MD: ED Physician Reza Lind HPI: 04/17 19:42 This 58 yrs old Female presents to ER via Ambulatory with complaints of ps1 Fever, Nausea. 19:42 patient is s/p open cholecystectomy recently and had reported purulent drainage from ps1 wound with dehiscense. Reports the surgical MA at doctors office probed the wound. Now having pain. Has been on Bactrim. Concerned about infection. Scheduled OP CT now having nausea and pain. . Historical: - Allergies: 16:03 Ceclor; hb 16:03 Keflex; hb 16:03 PENICILLINS; hb - Home Meds: 16:03 Usha 180 mg Oral tab 1 tab once daily [Active]; levothyroxine 100 mcg tab 1 tab once hb daily [Active]; montelukast 10 mg Oral tab once daily [Active]; pantoprazole 40 mg Oral TbEC 1 tab once daily [Active]; rosuvastatin 10 mg Oral tab 1 tab once daily [Active]; Singulair 10 mg Oral tab 1 tab once daily [Active]; terbinafine HCl 250 mg Oral tab 1 tab once daily [Active]; - PMHx: 16:03 Hypothyroidism; GERD; ibs; seasonal allergies; hb - PSHx: 16:03 patrial hysterectomy; Tonsillectomy; Knee surgery; Cholecystectomy; hb - Immunization history:: Adult Immunizations up to date. - Social history:: Smoking status: Patient/guardian denies using tobacco. - Ebola Screening: : No symptoms or risks identified at this time. ROS: 19:42 Constitutional: Negative for fever, chills, and weight loss, Eyes: Negative for injury, ps1 pain, redness, and discharge, Cardiovascular: Negative for chest pain, palpitations, and edema, Respiratory: Negative for shortness of breath, cough, wheezing, and pleuritic chest pain, MS/Extremity: Negative for injury and deformity, Skin: Negative for injury, rash, and discoloration, Neuro: Negative for headache, weakness, numbness, tingling, and seizure. 19:42 Abdomen/GI: Positive for abdominal pain, nausea and vomiting. Exam: 19:42 Constitutional: This is a well developed, well nourished patient who is awake, alert, ps1 and in no acute distress. Head/Face: Normocephalic, atraumatic. Eyes: Pupils equal round and reactive to light, extra-ocular motions intact. Lids and lashes normal. Conjunctiva and sclera are non-icteric and not injected. Chest/axilla: Normal chest wall appearance and motion. Nontender with no deformity. No lesions are appreciated. Cardiovascular: Regular rate and rhythm. No gallops, murmurs, or rubs. Normal PMI, no JVD. No pulse deficits. Respiratory: Lungs have equal breath sounds bilaterally, clear to auscultation and percussion. No rales, rhonchi or wheezes noted. No increased work of breathing, no retractions or nasal flaring. Skin: Warm, dry with normal turgor. Normal color with no rashes, no lesions, and no evidence of cellulitis. MS/ Extremity: Pulses equal, no cyanosis. Neurovascular intact. Full, normal range of motion. 19:42 Abdomen/GI: Inspection: scar(s), are noted in the right upper quadrant, post surgical scar. Appears closed. Cannot express purulent drainage. ? Dehiscence by history. . Vital Signs: 16:01 BP 134 / 85; Pulse 67; Resp 16; Temp 98.4; Pulse Ox 100% on R/A; Weight 83.91 kg; hb Height 5 ft. 7 in. (170.18 cm); Pain 4/10; 17:00 BP 119 / 68; Pulse 64; Resp 15; Temp 98.1(O); Pulse Ox 99% on R/A; rb1 18:00 BP 128 / 69; Pulse 66; Resp 16; Temp 98.2(O); Pulse Ox 96% on R/A; rb1 19:00 BP 107 / 71; Pulse 63; Resp 16; Pulse Ox 96% on R/A; jb4 20:00 BP 117 / 70; Pulse 66; Resp 16; Pulse Ox 97% on R/A; jb4 16:01 Body Mass Index 28.97 (83.91 kg, 170.18 cm) hb MDM: 16:53 Patient medically screened. ps1 19:49 Data reviewed: vital signs, nurses notes, lab test result(s), radiologic studies, and ps1 as a result, I will discharge patient. Counseling: I had a detailed discussion with the patient and/or guardian regarding: the historical points, exam findings, and any diagnostic results supporting the discharge/admit diagnosis, the presence of at least one elevated blood pressure reading (>120/80) during this emergency department visit, lab results, radiology results, the need for outpatient follow up, for definitive care, a general surgeon, to return to the emergency department if symptoms worsen or persist or if there are any questions or concerns that arise at home. 04/17 16:53 Order name: CBC with Diff; Complete Time: 17:39 ps1 04/17 16:53 Order name: CMP; Complete Time: 17:55 ps1 04/17 16:53 Order name: Lactate; Complete Time: 17:55 ps1 04/17 16:53 Order name: CT Abd/Pelvis - IV Contrast Only ps1 04/17 16:53 Order name: Blood Culture Adult (2) ps1 Administered Medications: 17:13 Drug: NS 0.9% 1000 ml Route: IV; Rate: 1 bolus; Site: right antecubital; rb1 17:13 Drug: Zofran 4 mg Route: IVP; Site: right antecubital; rb1 17:18 Follow up: Response: No adverse reaction; Nausea is decreased rb1 18:25 Drug: Zofran 4 mg Route: IVP; Site: right antecubital; rb1 Disposition: 04/17/19 19:40 Discharged to Home. Impression: Post surgical pain, Wound dehiscense, Abdominal pain. - Condition is Stable. - Discharge Instructions: Surgical Wound Debridement. - Prescriptions for Clindamycin HCl 300 mg Oral Capsule - take 1 capsule by ORAL route every 6 hours for 10 days; 40 capsule. Zofran 4 mg Oral Tablet - take 1 tablet by ORAL route every 12 hours As needed; 20 tablet. Tramadol 50 mg Oral Tablet - take 1 tablet by ORAL route every 8 hours as needed; 12 tablet. - Medication Reconciliation Form, Thank You Letter, Antibiotic Education, Prescription Opioid Use form. - Follow up: Private Physician; When: As needed; Reason: Further diagnostic work-up, Recheck today's complaints, Continuance of care, Re-evaluation by your physician. Follow up: Emergency Department; When: As needed; Reason: Fever > 102 F, Trouble breathing, Worsening of condition. - Problem is an ongoing problem. - Symptoms are unchanged. Signatures: Dispatcher [employer] EDKarol Cuello, RN RN [facility] Kandice Villalobos RN RN Juancho Castanon RN RN jb4 Reza Lind MD MD ps1 Corrections: (The following items were deleted from the chart) 20:10 19:40 04/17/2019 19:40 Discharged to Home. Impression: Post surgical pain; Wound jb4 dehiscense; Abdominal pain. Condition is Stable. Forms are Medication Reconciliation Form, Thank You Letter, Antibiotic Education, Prescription Opioid Use. Follow up: Private Physician; When: As needed; Reason: Further diagnostic work-up, Recheck today's complaints, Continuance of care, Re-evaluation by your physician. Follow up: Emergency Department; When: As needed; Reason: Fever > 102 F, Trouble breathing, Worsening of condition. Problem is an ongoing problem. Symptoms are unchanged. ps1
[2019-04-17 21:19] VITALS: TEMP 98.2
[2019-04-17 21:22] VITALS: BP 117/70; O2SAT 97
== END 2019-04-17 20:10 | disposition home or self-care (01) ==
LOC: ER 15:41
DX: G89.18 Other acute postprocedural pain (principal); T81.31XA Disruption of external operation (surgical) wound, not elsewhere classified, initial encounter; Z90.49 Acquired absence of other specified parts of digestive tract; E03.9 Hypothyroidism, unspecified; J30.2 Other seasonal allergic rhinitis; Z88.0 Allergy status to penicillin; Z88.1 Allergy status to other antibiotic agents; Z88.8 Allergy status to other drugs, medicaments and biological substances
CPT/HCPCS: 87040 ×2; 85025; 36415; 83605; 80053; 74177; 96374; 99284; Q9967; J7030; J2405 ×2

== ENCOUNTER 2019-08-31 08:22 | Emergency (ER) | payer BC, OTHER ==
--- OUTSIDE RECORDS SUMMARY | 2019-08-31 08:24 | XMS REPORT ---
:1960 Author [facility] Address [address] [place] [address] Care Team Providers Name Role Phone CORY MELTONAniya Unavailable Unavailable Problems This patient has no known problems. Allergies, Adverse Reactions, Alerts This patient has no known allergies or adverse reactions. Medications This patient has no known medications. Results Test Description Test Time Test Comments Text Results Atomic Results Result Comments AFB CULTURE + SMEAR 2019-05-02 12:27:00 Test Item Value Reference Range Comments CULTURE (BEAKER) (test zefd=1312) No acid-fast bacilli isolated in 42 days AFB SMEAR (BEAKER) (test axic=625) No acid fast bacilli seen FUNGUS CULTURE + [id number] 16:41:00 Test Item Value Reference Range Comments CULTURE (BEAKER) (test No fungus isolated in 28 days zfiz=2034) FUNGUS SMEAR (BEAKER) (test No fungi seen kwuh=2992) MR, ABDOMEN, WITHOUT IV [id number] 12:41:00FINAL REPORT TECHNIQUE: MRI of the abdomen and MRCP WITHOUT intravenous contrast. 3- D volume reconstructions were obtained to evaluate the biliary ductal system. INDICATION: Elevated LFTs. COMPARISON: MRCP from 03/25/2019. FINDINGS: ABSENCE OF INTRAVENOUS CONTRAST DECREASES SENSITIVITY FOR DETECTION OF FOCAL LESIONS AND VASCULAR PATHOLOGY. LOWER THORAX: Unremarkable. LIVER: There is minimal loss of signal in the liver on out of phase imaging. No focal hepatic lesions. The amount of Versed two diffusion seen in reticular pattern throughout the liver has decreased, likely due to improved infection.BILIARY: Recent prior cholecystectomy. No biliary ductal dilatation or filling defect. The common bile duct measures 0.6 cm in diameter.SPLEEN: No splenomegaly.PANCREAS: No focal masses or ductal dilatation. ADRENALS: No adrenal nodules.KIDNEYS/URETERS : No hydronephrosis or solid mass lesions. PERITONEUM/RETROPERITONEUM: No free fluid.LYMPH NODES: No lymphadenopathy. Prominent butnonenlarged lymph nodes in the tono hepatis.VESSELS: Unremarkable. GI TRACT: No distention or wall thickening. Mild diverticulosis of the left colon. BONES AND SOFT TISSUES: Incision in the right hemiabdomen from a prior open cholecystectomy. There is a small amount of fluid in this incision which islikely seroma. IMPRESSION: 1.Mild diffuse fatty infiltration of the liver. 2.The prominent but nonenlarged lymph nodes in the tono hepatis may be reactive. 3.There is a small amount of fluid in the incision which may be seroma. Signed: Waldemar Sher Verified Date/Time: 04/24/2019 12:41:31 Reading Location: [facility] C013Y CT Body Reading Room ANAEROBIC [id number] 18:13:00 Test Item Value Reference Range Comments CULTURE (BEAKER) (test jlxy=0621) No anaerobes isolated SURGICALLY OBTAINED CULTURE + GRAM [id number] 09:52:00 Test Item Value Reference Range Comments CULTURE (BEAKER) (test RAOULTELLA SPECIES <1+ Raoultella species stxk=7111) Amikacin (test code=1) Ampicillin + Sulbactam (test code=6) Aztreonam (test code=32) Cefepime (test code=51) Cefoxitin (test code=68) Ceftazidime (test code=27) Ceftriaxone (test code=52) Ertapenem (test code=38) Gentamicin (test code=18) Levofloxacin (test code=22) Meropenem (test code=34) Piperacillin + Tazobactam (test code=29) Tetracycline (test code=2) Tobramycin (test code=25) Trimethoprim + Sulfamethoxazole (test code=47) GRAM STAIN RESULT (BEAKER) 2+ WBCs (test iyyf=0487) GRAM STAIN RESULT (BEAKER) No organisms seen (test fvzg=988705) TISSUE [id number] 17:27:00Surgical Pathology Report Case: [id number] Authorizing Provider: Rufus Hinds MD Collected: 03/26/2019 1435 Ordering Location: [facility] Received: 03/26/2019 1639 SERVICES Pathologist: Chencho Wilson MD Specimen: Gallbladder, gallbladder A. GALLBLADDER, CHOLECYSTECTOMY: - ACUTE AND CHRONIC CHOLECYSTITIS WITH CHOLELITHIASIS Signing Pathologist Direct Phone Line: [phone] signed by Chencho Wilson MD on 03/28/2019 at 5:27 [id number] cholecystitis Gallbladder A. Received in formalin, labeled [...] and no nodules or masses are identified. Tower Crane Operator sections are submitted in cassettes A1-A2. DR/plPerformed.[id number] 06:35:00 Test Item Value Reference Range Comments PHOSPHORUS (BEAKER) (test pigg=063) 2.2 mg/dL 2.3-4.7 [id number] 06:35:00 Test Item Value Reference Range Comments MAGNESIUM (BEAKER) (test ocra=471) 2.0 mg/dL 1.6-2.6 BASIC METABOLIC [id number] 06:35:00 Test Item Value Reference Range Comments SODIUM (BEAKER) (test 134 meq/L 136-145 bgjv=587) POTASSIUM (BEAKER) (test 4.8 meq/L 3.5-5.1 bwgq=092) CHLORIDE (BEAKER) (test 108 meq/L 98-107 kome=653) CO2 (BEAKER) (test 19 meq/L 22-29 scea=950) BLOOD UREA NITROGEN 24 mg/dL 7-21 (BEAKER) (test lqjp=532) CREATININE (BEAKER) (test 0.71 mg/dL 0.57-1.25 frys=481) GLUCOSE RANDOM (BEAKER) 164 mg/dL 70-105 (test eawk=073) CALCIUM (BEAKER) (test 8.2 mg/dL 8.4-10.2 lwjn=109) EGFR (BEAKER) (test 85 mL/min/1.73 sq m ESTIMATED GFR IS NOT aknq=6245) ACCURATE CREATININE CLEARANCE IN PREDICTING GLOMERULAR FILTRATION RATE. ESTIMATED GFR IS NOT APPLICABLE FOR DIALYSIS PATIENTS. HEPATIC FUNCTION [id number] 06:35:00 Test Item Value Reference Range Comments TOTAL PROTEIN (BEAKER) (test ydxa=233) 6.3 gm/dL 6.0-8.3 ALBUMIN (BEAKER) (test pnty=5288) 3.0 g/dL 3.5-5.0 BILIRUBIN TOTAL (BEAKER) (test sqkd=827) 0.3 mg/dL 0.2-1.2 BILIRUBIN DIRECT (BEAKER) (test ykuv=892) 0.2 mg/dL 0.1-0.5 ALKALINE PHOSPHATASE (BEAKER) (test hcdr=691) 87 U/L 40-150 AST (SGOT) (BEAKER) (test igtg=223) 33 U/L 5-34 ALT (SGPT) (BEAKER) (test lxdm=878) 40 U/L 6-55 CBC (HEMOGRAM ONLY)2019-03-28 05:28:00 Test Item Value Reference Range Comments WHITE BLOOD CELL COUNT (BEAKER) (test ujjx=380) 11.2 K/ L 3.5-10.5 RED BLOOD CELL COUNT (BEAKER) (test ctff=317) 3.84 M/ L 3.93-5.22 HEMOGLOBIN (BEAKER) (test vnlr=927) 11.0 GM/DL 11.2-15.7 HEMATOCRIT (BEAKER) (test htmt=687) 34.4 % 34.1-44.9 MEAN CORPUSCULAR VOLUME (BEAKER) (test pncg=445) 89.6 fL 79.4-94.8 MEAN CORPUSCULAR HEMOGLOBIN (BEAKER) (test 28.6 pg 25.6-32.2 wsrp=831) MEAN CORPUSCULAR HEMOGLOBIN CONC (BEAKER) (test 32.0 GM/DL 32.2-35.5 ykwy=508) RED CELL DISTRIBUTION WIDTH (BEAKER) (test 14.0 % 11.7-14.4 kqdp=138) PLATELET COUNT (BEAKER) (test ojxn=874) 190 K/CU MM 150-450 MEAN PLATELET VOLUME (BEAKER) (test qacf=766) 11.8 fL 9.4-12.3 NUCLEATED RED BLOOD CELLS (BEAKER) (test 0 /100 WBC 0-0 ffoh=333) [id number] 07:57:00 Test Item Value Reference Range Comments MAGNESIUM (BEAKER) (test akrg=536) 1.6 mg/dL 1.6-2.6 BASIC METABOLIC [id number] 07:57:00 Test Item Value Reference Range Comments SODIUM (BEAKER) (test 136 meq/L 136-145 wkze=244) POTASSIUM (BEAKER) (test 4.4 meq/L 3.5-5.1 gkjj=218) CHLORIDE (BEAKER) (test 107 meq/L 98-107 thmk=767) CO2 (BEAKER) (test 23 meq/L 22-29 bqng=394) BLOOD UREA NITROGEN 17 mg/dL 7-21 (BEAKER) (test rjkc=333) CREATININE (BEAKER) (test 0.74 mg/dL 0.57-1.25 fvru=771) GLUCOSE RANDOM (BEAKER) 188 mg/dL 70-105 (test gnse=749) CALCIUM (BEAKER) (test 8.9 mg/dL 8.4-10.2 uxsq=697) EGFR (BEAKER) (test 81 mL/min/1.73 sq m ESTIMATED GFR IS NOT tbud=4294) ACCURATE CREATININE CLEARANCE IN PREDICTING GLOMERULAR FILTRATION RATE. ESTIMATED GFR IS NOT APPLICABLE FOR DIALYSIS PATIENTS. [id number] 07:15:00 Test Item Value Reference Range Comments PHOSPHORUS (BEAKER) (test wdex=012) 3.0 mg/dL 2.3-4.7 HEPATIC FUNCTION [id number] 07:15:00 Test Item Value Reference Range Comments TOTAL PROTEIN (BEAKER) (test tdwj=973) 6.8 gm/dL 6.0-8.3 ALBUMIN (BEAKER) (test ajqo=7982) 3.2 g/dL 3.5-5.0 BILIRUBIN TOTAL (BEAKER) (test xolv=336) 0.5 mg/dL 0.2-1.2 BILIRUBIN DIRECT (BEAKER) (test olrn=360) 0.3 mg/dL 0.1-0.5 ALKALINE PHOSPHATASE (BEAKER) (test pyca=316) 100 U/L 40-150 AST (SGOT) (BEAKER) (test zmxg=183) 41 U/L 5-34 ALT (SGPT) (BEAKER) (test hmna=377) 50 U/L 6-55 CBC (HEMOGRAM ONLY)2019-03-27 05:33:00 Test Item Value Reference Range Comments WHITE BLOOD CELL COUNT (BEAKER) (test wjic=740) 12.7 K/ L 3.5-10.5 RED BLOOD CELL COUNT (BEAKER) (test tuty=409) 4.23 M/ L 3.93-5.22 HEMOGLOBIN (BEAKER) (test akvr=988) 12.0 GM/DL 11.2-15.7 HEMATOCRIT (BEAKER) (test vezw=639) 37.9 % 34.1-44.9 MEAN CORPUSCULAR VOLUME (BEAKER) (test obou=649) 89.6 fL 79.4-94.8 MEAN CORPUSCULAR HEMOGLOBIN (BEAKER) (test 28.4 pg 25.6-32.2 fnbb=691) MEAN CORPUSCULAR HEMOGLOBIN CONC (BEAKER) (test 31.7 GM/DL 32.2-35.5 vsmc=456) RED CELL DISTRIBUTION WIDTH (BEAKER) (test 13.5 % 11.7-14.4 tmbr=069) PLATELET COUNT (BEAKER) (test cieo=529) 190 K/CU MM 150-450 MEAN PLATELET VOLUME (BEAKER) (test ckcb=615) 11.6 fL 9.4-12.3 NUCLEATED RED BLOOD CELLS (BEAKER) (test 0 /100 WBC 0-0 ayty=862) SPIN/CONCENTRATION [id number] 02:54:00 Test Item Value Reference Range Comments CONCENTRATION CHARGED (BEAKER) (test jkno=2894) Done SODIUM NA-STAT [id number] 14:39:00 Test Item Value Reference Range Comments SODIUM (BEAKER) (test kzar=355) 135 meq/L 135-148 POTASSIUM-STAT [id number] 14:39:00 Test Item Value Reference Range Comments POTASSIUM (BEAKER) (test phpf=383) 3.6 meq/L 3.6-5.5 HGB/HCT (H&H) - STAT [id number] 14:39:00 Test Item Value Reference Range Comments HEMOGLOBIN (BEAKER) (test bgzf=813) 13.5 g/dL 12.0-15.0 HEMATOCRIT (BEAKER) (test xuvs=327) 40.0 % 36.0-45.0 CALCIUM, [id number] 14:39:00 Test Item Value Reference Range Comments CALCIUM IONIZED (BEAKER) (test ggsl=282) 1.13 mmol/L 1.12-1.27 PH, BLOOD (BEAKER) (test vkwt=8004) 7.47 BLOOD GAS, [id number] 14:39:00 Test Item Value Reference Range Comments PH ARTERIAL (BEAKER) (test vltu=115) 7.47 7.35-7.45 PCO2 ARTERIAL (BEAKER) (test ykrd=158) 32 mmHg 35-45 PO2 ARTERIAL (BEAKER) (test uodu=127) 155 mmHg 80-90 O2 SATURATION ARTERIAL (BEAKER) (test zqnk=754) 99.1 % 96.0-97.0 HCO3 ARTERIAL (BEAKER) (test gjry=120) 23 mmol/L 21-29 BASE EXCESS ARTERIAL (BEAKER) (test xqae=377) 0.1 mmol/L -2.0-3.0 PATIENT TEMPERATURE (BEAKER) (test ohpo=0131) 37.3 C FIO2 (BEAKER) (test tqqk=9253) 60.0 % GLUCOSE-STAT [id number] 14:39:00 Test Item Value Reference Range Comments GLUCOSE RANDOM (BEAKER) (test lyib=907) 151 mg/dL 70-110 HEPATIC FUNCTION [id number] 06:34:00 Test Item Value Reference Range Comments TOTAL PROTEIN (BEAKER) (test fnqz=961) 7.4 gm/dL 6.0-8.3 ALBUMIN (BEAKER) (test qjkz=5376) 3.6 g/dL 3.5-5.0 BILIRUBIN TOTAL (BEAKER) (test uvct=932) 0.7 mg/dL 0.2-1.2 BILIRUBIN DIRECT (BEAKER) (test ldhi=493) 0.4 mg/dL 0.1-0.5 ALKALINE PHOSPHATASE (BEAKER) (test rcwc=936) 125 U/L 40-150 AST (SGOT) (BEAKER) (test ktzo=387) 29 U/L 5-34 ALT (SGPT) (BEAKER) (test yrys=459) 51 U/L 6-55 PROTHROMBIN TIME/[id number] 06:17:00 Test Item Value Reference Range Comments PROTIME (SAILAJA) (test rthd=367) 14.8 seconds 11.9-14.2 INR (BEAKER) (test wgpp=769) 1.2 <=5.9 Effective 01/10/2019: PT Reference Range ChangeNew: 11.9-14.2 Previous: 11.7- 14.7RECOMMENDED COUMADIN/WARFARIN INR THERAPY RANGESSTANDARD DOSE: 2.0-3.0 Includes: PROPHYLAXIS for venous thrombosis, systemic embolization; TREATMENT for venous thrombosis and/or pulmonary embolus.HIGH RISK: Target INR is2.5-3.5 for patients wiht mechanical heart valves.MR, ABDOMEN, [id number] 16:16: 00FINAL REPORT TECHNIQUE: MRI of the [...] MDReport Verified Date/Time: 03/25/2019 16:16:25 Reading Location: [facility] B1 C013Y CT Body Reading Room COMPREHENSIVE METABOLIC [id number] 05:51:00 Test Item Value Reference Range Comments TOTAL PROTEIN (BEAKER) 7.4 gm/dL 6.0-8.3 (test jngq=860) ALBUMIN (BEAKER) (test 3.6 g/dL 3.5-5.0 zsih=7375) ALKALINE PHOSPHATASE 126 U/L 40-150 (BEAKER) (test ikye=052) BILIRUBIN TOTAL (BEAKER) 0.8 mg/dL 0.2-1.2 (test cjcx=773) SODIUM (BEAKER) (test 137 meq/L 136-145 kltm=714) POTASSIUM (BEAKER) (test 4.2 meq/L 3.5-5.1 jkut=553) CHLORIDE (BEAKER) (test 107 meq/L 98-107 uoiu=624) CO2 (BEAKER) (test 23 meq/L 22-29 nltf=373) BLOOD UREA NITROGEN 12 mg/dL 7-21 (BEAKER) (test xupi=455) CREATININE (BEAKER) (test 0.77 mg/dL 0.57-1.25 oefl=907) GLUCOSE RANDOM (BEAKER) 134 mg/dL 70-105 (test fwgy=275) CALCIUM (BEAKER) (test 9.3 mg/dL 8.4-10.2 uhbm=872) AST (SGOT) (BEAKER) (test 44 U/L 5-34 itzc=003) ALT (SGPT) (BEAKER) (test 62 U/L 6-55 spkg=142) EGFR (BEAKER) (test 78 mL/min/1.73 sq m ESTIMATED GFR IS NOT thnr=0926) ACCURATE CREATININE CLEARANCE IN PREDICTING GLOMERULAR FILTRATION RATE. ESTIMATED GFR IS NOT APPLICABLE FOR DIALYSIS PATIENTS. CBC (HEMOGRAM ONLY)2019-03-25 05:09:00 Test Item Value Reference Range Comments WHITE BLOOD CELL COUNT (BEAKER) (test iccs=485) 10.3 K/ L 3.5-10.5 RED BLOOD CELL COUNT (BEAKER) (test thie=577) 4.57 M/ L 3.93-5.22 HEMOGLOBIN (BEAKER) (test pxew=210) 13.0 GM/DL 11.2-15.7 HEMATOCRIT (BEAKER) (test vtuc=495) 40.5 % 34.1-44.9 MEAN CORPUSCULAR VOLUME (BEAKER) (test omlm=832) 88.6 fL 79.4-94.8 MEAN CORPUSCULAR HEMOGLOBIN (BEAKER) (test 28.4 pg 25.6-32.2 kfxj=555) MEAN CORPUSCULAR HEMOGLOBIN CONC (BEAKER) (test 32.1 GM/DL 32.2-35.5 qthp=172) RED CELL DISTRIBUTION WIDTH (BEAKER) (test 13.9 % 11.7-14.4 kkuj=006) PLATELET COUNT (BEAKER) (test rkyl=464) 209 K/CU MM 150-450 MEAN PLATELET VOLUME (BEAKER) (test veil=901) 11.1 fL 9.4-12.3 NUCLEATED RED BLOOD CELLS (BEAKER) (test 0 /100 WBC 0-0 czhn=412)
[2019-08-31] MEDS ORDERED: KETOROLAC 30 MG/ML INJ ONE (09:42)
[2019-08-31] MEDS ORDERED: ONDANSETRON 4 MG/2 ML VIAL ONE (09:42)
[2019-08-31] MEDS ORDERED: MUPIROCIN 2% OINT 22GM TUBE TOP ONE (09:42)
[2019-08-31] MEDS ORDERED: CLINDAMYCIN 900MG/D5W 900 MG/50 ML IVPB IV ONE (09:42)
[2019-08-31] MEDS ORDERED: DOXYCYCLINE 100 MG CAP PO ONE (09:42)
[2019-08-31 10:16] LABS: Basophils % 0.4 % (0-1.3); Lymphocytes % 18.8 % (15.3-44.8); MPV 9.6 fL (7.6-11.3); RBC Red Blood Cell Count 5.12 M/uL (3.86-4.86)
--- NOTE | 2019-08-31 10:24 | ER ---
Nurse's Notes [facility] Name: Tere Urbina Age: 58 yrs Sex: Female : 1960 Arrival Date: 08/31/2019 Time: 08:27 Bed 7 Private MD: Al Bernabe T Diagnosis: Cutaneous abscess of face;Cellulitis and acute lymphangitis of face;Insect bite (nonvenomous) of unspecified part of head-face Presentation: 08/31 08:46 Presenting complaint: Patient states: Possible bite to left facial cheek started jl7 Tuesday, thought it was a pimple, spot increased in size and redness, Dr. Bernabe prescribed Bactrim and Rifampin on Tuesday, pt reports adverse reaction to Bactrim so Dr. Bernabe prescribed Doxycycline but she hasn't started taking it yet, area is larger this morning. Transition of care: patient was not received from another setting of care. Onset of symptoms was August 27, 2019. Risk Assessment: Do you want to hurt yourself or someone else? Patient reports no desire to harm self or others. Initial Sepsis Screen: Does the patient meet any 2 criteria? No. Patient's initial sepsis screen is negative. Does the patient have a suspected source of infection? No. Patient's initial sepsis screen is negative. Care prior to arrival: None. 08:46 Method Of Arrival: Ambulatory 7 08:46 Acuity: KAITLYNN 4 jl7 Triage Assessment: 08:52 General: Appears in no apparent distress. uncomfortable, Behavior is calm, cooperative, jl7 appropriate for age. Pain: Complains of pain in DAMON, neck, left ear and left cheek Pain currently is 10 out of 10 on a pain scale. Quality of pain is described as burning, throbbing. Neuro: Level of Consciousness is awake, alert, obeys commands, Oriented to person, place, time, situation. Cardiovascular: Patient's skin is warm and dry. Respiratory: Airway is patent Respiratory effort is even, unlabored, Respiratory pattern is regular, symmetrical. Derm: Skin is pink, warm \T\ dry. Abscess located on left cheek is quarter sized, has no drainage, is hot to touch, is red, is raised. Historical: - Allergies: 08:52 Ceclor; jl7 08:52 Keflex; jl7 08:52 PENICILLINS; jl7 08:52 Bactrim; jl7 - Home Meds: 08:52 levothyroxine 100 mcg tab 1 tab once daily [Active]; pantoprazole 40 mg Oral TbEC 1 tab jl7 once daily [Active]; Singulair 10 mg Oral tab 1 tab once daily [Active]; - PMHx: 08:52 GERD; Hypothyroidism; ibs; seasonal allergies; jl7 - PSHx: 08:52 Cholecystectomy; Tonsillectomy; Knee surgery; patrial hysterectomy; jl7 - Immunization history:: Adult Immunizations unknown. - Social history:: Smoking status: Patient uses tobacco products, smokes one-half pack cigarettes per day. - Ebola Screening: : No symptoms or risks identified at this time. - Family history:: not pertinent. Screenin:55 Abuse screen: Denies threats or abuse. Denies injuries from another. Nutritional jl7 screening: No deficits noted. Tuberculosis screening: No symptoms or risk factors identified. Fall Risk None identified. Assessment: 08:55 General: See triage assessment. jl7 10:00 Reassessment: Patient appears in no apparent distress at this time. No changes from jl7 previously documented assessment. Patient and/or family updated on plan of care and expected duration. Pain level reassessed. Patient is alert, oriented x 3, equal unlabored respirations, skin warm/dry/pink. 10:36 Reassessment: Pt will be discharged once lab results are back. jl7 Vital Signs: 08:52 BP 121 / 58; Pulse 87; Resp 16 S; Temp 98(O); Pulse Ox 100% on R/A; Weight 89.36 kg jl7 (R); Height 5 ft. 7 in. (170.18 cm) (R); Pain 10/10; 10:00 BP 114 / 73; Pulse 71; Resp 16 S; Pulse Ox 100% on R/A; jl7 08:52 Body Mass Index 30.85 (89.36 kg, 170.18 cm) jl7 ED Course: 08:27 Patient arrived in ED. mr 08:27 Al Bernabe MD is Private Physician. mr 08:46 Andrea Kelsey RN is Primary Nurse. jl7 08:50 Triage completed. jl7 08:52 Wilfredo Arias MD is Attending Physician. annie 08:52 Arm band placed on right wrist. jl7 08:55 Patient has correct armband on for positive identification. Bed in low position. Call jl7 light in reach. Side rails up X 1. Pulse ox on. NIBP on. 09:55 Initial lab(s) drawn, by me, sent to lab. Inserted saline lock: 22 gauge in right hand, jl7 using aseptic technique. Blood collected. 10:23 Al Bernabe MD is Referral Physician. annie 10:30 IV discontinued, intact, bleeding controlled, No redness/swelling at site. Pressure dh3 dressing applied. 10:37 No provider procedures requiring assistance completed. jl7 10:49 IV discontinued, intact, bleeding controlled, No redness/swelling at site. Pressure jl7 dressing applied. Administered Medications: 09:40 Drug: Bactroban Ointment 2 % 1 application Route: Topical; Site: affected area; jl7 10:28 Follow up: Response: No adverse reaction jl7 09:46 Drug: Zofran 4 mg Route: IVP; Site: right hand; jl7 10:28 Follow up: Response: No adverse reaction jl7 09:48 Drug: TORadol 30 mg Route: IVP; Site: right hand; jl7 10:49 Follow up: Response: No adverse reaction jl7 09:50 Drug: Clindamycin 900 mg Route: IVPB; Infused Over: 30 mins; Site: right hand; jl7 10:28 Follow up: Response: No adverse reaction; IV Status: Completed infusion jl7 10:00 Drug: Clindamycin 300 mg Route: PO; jl7 10:27 Follow up: Response: No adverse reaction jl7 10:27 Not Given (pt has her own prescription ): Doxycycline 200 mg PO once jl7 Outcome: 10:23 Discharge ordered by . [facility] 10:48 Discharged to home ambulatory. jl7 10:48 Condition: stable 10:48 Discharge instructions given to patient, Instructed on discharge instructions, follow up and referral plans. medication usage, Demonstrated understanding of instructions, follow-up care, medications, Prescriptions given X 4. 10:49 Patient left the ED. jl7 Signatures: Wilfredo Arias MD MD cha Rivera, Andrea Anthony RN RN 7 Kassie Beltrán [facility]
--- NOTE | 2019-08-31 10:24 | EDPHYS ---
Physician Documentation [facility] Name: Tere Urbina Age: 58 yrs Sex: Female : 1960 Arrival Date: 08/31/2019 Time: 08:27 Bed 7 Private MD: Al Bernabe T ED Physician Wilfredo Arias HPI: 08/31 09:30 This 58 yrs old Female presents to ER via Ambulatory with complaints of annie Abscess. 09:30 The patient presents with an abscess of the face and left cheek, The patient presents annie with cellulitis of the face. Description: The affected area is small, moderate sized, confluent, localized, draining, erythematous, fluctuant. Onset: The symptoms/episode began/occurred 3 day(s) ago. Possible cause(s): unknown. Associated signs and symptoms: The patient has no apparent associated signs or symptoms. Severity of symptoms: At their worst the symptoms were mild, moderate. The patient has not experienced similar symptoms in the past. Historical: - Allergies: 08:52 Ceclor; jl7 08:52 Keflex; jl7 08:52 PENICILLINS; jl7 08:52 Bactrim; jl7 - Home Meds: 08:52 levothyroxine 100 mcg tab 1 tab once daily [Active]; pantoprazole 40 mg Oral TbEC 1 tab jl7 once daily [Active]; Singulair 10 mg Oral tab 1 tab once daily [Active]; - PMHx: 08:52 GERD; Hypothyroidism; ibs; seasonal allergies; jl7 - PSHx: 08:52 Cholecystectomy; Tonsillectomy; Knee surgery; patrial hysterectomy; jl7 - Immunization history:: Adult Immunizations unknown. - Social history:: Smoking status: Patient uses tobacco products, smokes one-half pack cigarettes per day. - Ebola Screening: : No symptoms or risks identified at this time. - Family history:: not pertinent. ROS: 09:30 Constitutional: Negative for fever, chills, and weight loss, Eyes: Negative for injury, annie pain, redness, and discharge, ENT: Negative for injury, pain, and discharge, Neck: Negative for injury, pain, and swelling, Cardiovascular: Negative for chest pain, palpitations, and edema, Respiratory: Negative for shortness of breath, cough, wheezing, and pleuritic chest pain, Abdomen/GI: Negative for abdominal pain, nausea, vomiting, diarrhea, and constipation, Back: Negative for injury and pain, : Negative for injury, bleeding, discharge, and swelling, MS/Extremity: Negative for injury and deformity, Neuro: Negative for headache, weakness, numbness, tingling, and seizure, Psych: Negative for depression, anxiety, suicide ideation, homicidal ideation, and hallucinations, Allergy/Immunology: Negative for hives, rash, and allergies, Endocrine: Negative for neck swelling, polydipsia, polyuria, polyphagia, and marked weight changes, Hematologic/Lymphatic: Negative for swollen nodes, abnormal bleeding, and unusual bruising. 09:30 Skin: Positive for rash, swelling, of the face and left cheek. Exam: 09:30 Constitutional: This is a well developed, well nourished patient who is awake, alert, annie and in no acute distress. Eyes: Pupils equal round and reactive to light, extra-ocular motions intact. Lids and lashes normal. Conjunctiva and sclera are non-icteric and not injected. Cornea within normal limits. Periorbital areas with no swelling, redness, or edema. ENT: Nares patent. No nasal discharge, no septal abnormalities noted. Tympanic membranes are normal and external auditory canals are clear. Oropharynx with no redness, swelling, or masses, exudates, or evidence of obstruction, uvula midline. Mucous membranes moist. Neck: Trachea midline, no thyromegaly or masses palpated, and no cervical lymphadenopathy. Supple, full range of motion without nuchal rigidity, or vertebral point tenderness. No Meningismus. Chest/axilla: Normal chest wall appearance and motion. Nontender with no deformity. No lesions are appreciated. Cardiovascular: Regular rate and rhythm with a normal S1 and S2. No gallops, murmurs, or rubs. Normal PMI, no JVD. No pulse deficits. Respiratory: Lungs have equal breath sounds bilaterally, clear to auscultation and percussion. No rales, rhonchi or wheezes noted. No increased work of breathing, no retractions or nasal flaring. Abdomen/GI: Soft, non-tender, with normal bowel sounds. No distension or tympany. No guarding or rebound. No evidence of tenderness throughout. Back: No spinal tenderness. No costovertebral tenderness. Full range of motion. Female : Normal external genitalia. MS/ Extremity: Pulses equal, no cyanosis. Neurovascular intact. Full, normal range of motion. Neuro: Awake and alert, GCS 15, oriented to person, place, time, and situation. Cranial nerves II-XII grossly intact. Motor strength 5/5 in all extremities. Sensory grossly intact. Cerebellar exam normal. Normal gait. Psych: Awake, alert, with orientation to person, place and time. Behavior, mood, and affect are within normal limits. 09:30 Head/face: Noted is swelling, tenderness, that is mild, of the left cheek. Vital Signs: 08:52 BP 121 / 58; Pulse 87; Resp 16 S; Temp 98(O); Pulse Ox 100% on R/A; Weight 89.36 kg 7 (R); Height 5 ft. 7 in. (170.18 cm) (R); Pain 10/10; 10:00 BP 114 / 73; Pulse 71; Resp 16 S; Pulse Ox 100% on R/A; 7 08:52 Body Mass Index 30.85 (89.36 kg, 170.18 cm) [facility] MDM: 08:52 Patient medically screened. [facility] 09:32 Data reviewed: vital signs, nurses notes, lab test result(s). [facility] 08/31 09:30 Order name: CBC with Diff; Complete Time: 10:31 [facility] 08/31 09:30 Order name: Comprehensive Metabolic Panel [facility] Administered Medications: 09:40 Drug: Bactroban Ointment 2 % 1 application Route: Topical; Site: affected area; 7 10:28 Follow up: Response: No adverse reaction [facility] 09:46 Drug: Zofran 4 mg Route: IVP; Site: right hand; jl7 10:28 Follow up: Response: No adverse reaction 7 09:48 Drug: TORadol 30 mg Route: IVP; Site: right hand; jl7 10:49 Follow up: Response: No adverse reaction [facility] 09:50 Drug: Clindamycin 900 mg Route: IVPB; Infused Over: 30 mins; Site: right hand; jl7 10:28 Follow up: Response: No adverse reaction; IV Status: Completed infusion jl7 10:00 Drug: Clindamycin 300 mg Route: PO; jl7 10:27 Follow up: Response: No adverse reaction jl7 10:27 Not Given (pt has her own prescription ): Doxycycline 200 mg PO once jl7 Disposition: 08/31/19 10:23 Discharged to Home. Impression: Cutaneous abscess of face, Cellulitis and acute lymphangitis of face, Insect bite (nonvenomous) of unspecified part of head - face. - Condition is Stable. - Discharge Instructions: Skin Abscess, Insect Bite, [id number], Insect Bite, Skin Abscess, [id number]. - Prescriptions for Bactroban 2 % Topical Ointment - Apply to affected area 1 application by TOPICAL route every 12 hours; 30 gram. Clindamycin HCl 300 mg Oral Capsule - take 1 capsule by ORAL route every 6 hours for 10 days; 40 capsule. Tylenol- Codeine #3 300-30 mg Oral Tablet - take 2 tablets by ORAL route every 6 hours As needed; 24 tablet. Doxycycline Hyclate 100 mg Oral Tablet - take 1 tablet by ORAL route every 12 hours; 20 tablet. - Medication Reconciliation Form, Thank You Letter, Antibiotic Education, Prescription Opioid Use form. - Follow up: Al Bernabe; When: 2 - 3 days; Reason: Recheck today's complaints, Continuance of care, Re-evaluation by your physician. - Problem is new. - Symptoms have improved. Signatures: Dispatcher [employer] EDMS Wilfredo Arias MD MD cha Leal, Jahala RN RN jl7 Corrections: (The following items were deleted from the chart) 10:49 10:23 08/31/2019 10:23 Discharged to Home. Impression: Cutaneous abscess of face; jl7 Cellulitis and acute lymphangitis of face; Insect bite (nonvenomous) of unspecified part of head - face. Condition is Stable. Discharge Instructions: Skin Abscess, Insect Bite, [id number], Insect Bite, Skin Abscess, [id number]. Prescriptions for Bactroban 2 % Topical Ointment - Apply to affected area 1 application by TOPICAL route every 12 hours; 30 gram, Clindamycin HCl 300 mg Oral Capsule - take 1 capsule by ORAL route every 6 hours for 10 days; 40 capsule, Tylenol-Codeine #3 300-30 mg Oral Tablet - take 2 tablets by ORAL route every 6 hours As needed; 24 tablet, Doxycycline Hyclate 100 mg Oral Tablet - take 1 tablet by ORAL route every 12 hours; 20 tablet. and Forms are Medication Reconciliation Form, Thank You Letter, Antibiotic Education, Prescription Opioid Use. Follow up: Al Bernabe; When: 2 - 3 days; Reason: Recheck today's complaints, Continuance of care, Re-evaluation by your physician. Problem is new. Symptoms have improved. annie
[2019-08-31 10:36] LABS: Albumin 3.3 g/dL (3.4-5.0); Bilirubin Total 1.7 mg/dL (0.2-1.0); Potassium 3.8 mmol/L (3.5-5.1); Protein, Total 8.3 g/dL (6.4-8.2)
[2019-08-31 10:59] VITALS: TEMP 98; O2SAT 100
[2019-08-31 11:02] VITALS: BP 114/73
== END 2019-08-31 10:49 | disposition home or self-care (01) ==
LOC: ER 08:22
DX: L02.01 Cutaneous abscess of face (principal); L03.211 Cellulitis of face; L03.212 Acute lymphangitis of face; W57.XXXA Bitten or stung by nonvenomous insect and other nonvenomous arthropods, initial encounter; F17.210 Nicotine dependence, cigarettes, uncomplicated; E03.9 Hypothyroidism, unspecified; J30.2 Other seasonal allergic rhinitis; Z88.0 Allergy status to penicillin; Z88.1 Allergy status to other antibiotic agents; Z88.8 Allergy status to other drugs, medicaments and biological substances
CPT/HCPCS: 96365; 85025; 36415; 80053; 96375; 99284; J2405

== ENCOUNTER 2020-04-27 13:57 | Emergency (ER) | payer BC ==
--- OUTSIDE RECORDS SUMMARY | 2020-04-27 13:59 | XMS REPORT | Continuity of Care Document ---
:1960 Author Organization [facility] t Address [address] [place] [address] Care Team Providers Name Role Phone Pcp Primary Care Physician Unavailable POOJA MELTON Attending Clinician Unavailable POJOA MELTON Admitting Clinician Unavailable Problems Condition Condition Condition Status Onset Resolution Last Treating Co mments Source Name Details Category Date Date Treatment Clinician Date Calculus Calculus Disease [facility] - duct with duct with 00:00: [facility] silverio acute acute 00 Center cholecysti cholecysti tis tis without without obstructio obstructio n n [place] Disease Active [facility] lithiasis lithiasis 8-11 [facility] - 00:00: Medical 00 Center Allergies, Adverse Reactions, Alerts Allergy Allergy Status Severity Reaction(s) Onset Inactive Treating Comm ents Source Name Type Date Date Clinician Cefaclor Propensi Active Rash [facility] - adverse 00:00: Medical reaction 00 Center s Cephalex Propensi Active Rash [facility] 8[facility]10 [facility] - adverse 00:00: Medical reaction 00 [facility] s Penicill Propensi Active Anaphylaxis [facility] ty to 8-10 [facility] - adverse 00:00: Medical reaction 00 [place] Social History Social Habit Start Date Stop Date Quantity Comments Source Sex Assigned At [facility] Cigarettes smoked 2019-03-27 2019-03-27 [facility] - current (pack per 00:00:00 00:00:00 Medical Center day) - Reported Cigarette pack-years 2019-03-27 2019-03-[address] [facility] Alcohol Comment 2019-03-24 2019-03-[address] [facility] - 00:[facility]00 00:[facility]:00 [facility] Center Smoking Status Start Date Stop Date Source Current every day smoker 2019-03-27 00:00:[address] [facility] Medications Ordered Filled Start Stop Current Ordering Indication Dosage Frequency Signature Comments Components Source Medication Medication Date Date Medication? Clinician (SIG) Name Name gabapentin 2019- No 300mg Q.5D Take [address] [facility] [address] (NEURONTIN) 8-14 03-27 capsule [facility] - 300 MG 00:00: 23:59 (300 mg Medical capsule 00 :00 total) by Center mouth 2 (two) times daily. levothyroxi Yes 100ug Take [address] ne 8-10 mcg by [facility] - (SYNTHROID, 18:35: mouth Medic al LEVOTHROID) 28 Every Center 100 MCG morning on tablet an empty stomach. montelukast Yes 10mg QD Take [address] [facility] [address] (SINGULAIR) 8-10 by mouth [facility] - 10 mg 18:35: nightly. Medical tablet 28 Center fexofenadin Yes 180mg QD Take [address] (TIM) 8-10 mg by [facility] - 180 MG 18:35: mouth Medical tablet 28 daily. Center pantoprazol Yes 40mg QD Take [address] [facility] e 8-10 by mouth [facility] - (PROTONIX) 18:35: daily. Medic al 40 MG 28 Center tablet Procedures This patient has no known procedures. Results Test Description Test Time Test Comments Results Result Comments Source AFB CULTURE + SMEAR 2019-05-02 12:27:00 Test Item Value Reference Range Interpretation Comme nts CULTURE (BEAKER) (test code = 1095) No acid-fast bacilli isolated i n 42 days AFB SMEAR (BEAKER) (test code = 994) No acid fast bacilli seen FUNGUS CULTURE + [id number] 16:41:00 Test Item Value Reference Range Interpretation Comments CULTURE (BEAKER) (test No fungus isolated in code = 1095) 28 days FUNGUS SMEAR (BEAKER) No fungi seen (test code = 1406) MR, ABDOMEN, WITHOUT IV [id number] 12:41:00FINAL REPORT TECHNIQUE: MRI of the abdomen [...] phase imaging. No focal hepatic lesions. The amoun t of Versed two diffusion seen in reticular pattern throughout the liver has decreased, likely due to improved infection.BILIARY: Recent prior cholecystectomy. No biliary ductal dilatation or filling defect. The common bile duct measures 0.6 cm in diameter.SPLEEN: No splenomegaly.PANCREAS: No focal mas ses or ductal dilatation. ADRENALS: No adrenal nodules.KIDNEYS/URETERS: No hydronephrosis or solid mass lesions. PERITONEUM/RETROPERITONEUM: No free fluid.LYMPH NODES: No lymphadenopathy. Prominent butnonenlarged lymph nodes in the tono hepatis.VESSELS: Unremarkable. GI TRACT: No distention or wall t hickening. Mild diverticulosis of the left colon. BONES [...] which may be seroma. Signed: Waldemar Sher MDReport Verified Date/Time: 04/24/2019 12:41:31 Reading Location: [facility] C013Y CT Body Reading Room ROBIC [id number] 18:13:00 Test Item Value Reference Range Interpretation Comments CULTURE (BEAKER) (test No anaerobes isolated code = 1095) SURGICALLY OBTAINED CULTURE + GRAM [id number] 09:52:00 Test Item Value Reference Range Interpretation Comments CULTURE (BEAKER) (test RAOULTELLA A <1+ R aoultella code = 1095) SPECIES species Amikacin (test code = S 1) Ampicillin + Sulbactam S (test code = 6) Aztreonam (test code = S 32) Cefepime (test code = S 51) Cefoxitin (test code = S 68) Ceftazidime (test code S = 27) Ceftriaxone (test code S = 52) Ertapenem (test code = S 38) Gentamicin (test code = S 18) Levofloxacin (test code S = 22) Meropenem (test code = S 34) Piperacillin + S Tazobactam (test code = 29) Tetracycline (test code S = 2) Tobramycin (test code = S 25) Trimethoprim + S Sulfamethoxazole (test code = 47) GRAM STAIN RESULT 2+ WBCs (BEAKER) (test code = 1123) GRAM STAIN RESULT No organisms (BEAKER) (test code = seen 950695) TISSUE [id number] 17:27:00Surgical Pathology Report Case: [id number] Authorizing Provider: Rufus Hinds MD Collected: 03/26/2019 1435 Ordering Location: [facility] PERIOPERATIVE Received: 03/26/2019 1639 SERVICES Pathologist: Chencho Wilson MD Specimen: Gallbladder, gallbladder A. GALLBLADDER, CHOLECYSTECTOMY: - ACUTE AND CHRONIC CHOLECYSTITIS WITH CHOLELITHIASIS Signing Pathologist Veronica eric Phone Line: [phone] signed by Chencho Wilson MD on 03/28/2019 at 5:27 [id number] cholecystitis Gallbladder A. Received in formalin, labeled [...] mucosal surface that measures0.3 cm thick. One pierson-green crushable gallstone is identified that measures 0.9 cm in greatest dimension. No gallstone is lodged into the cystic duct. The specimen is serially sectioned and no nodules or masses are identified. Warehouse Lead sections are submitted in cassettes A1-A2. /plPerformed.[id number] 06:35:00 Test Item Value Reference Range Interpretation Comments PHOSPHORUS (BEAKER) (test code = 2.2 mg/dL 2.3-4.7 L 604) [id number] 06:35:00 Test Item Value Reference Range Interpretation Comments MAGNESIUM (BEAKER) (test code = 2.0 mg/dL 1.6-2.6 627) BASIC METABOLIC [id number] 06:35:00 Test Item Value Reference Range Interpretation Comments SODIUM (BEAKER) 134 meq/L 136-145 L (test code = 381) POTASSIUM (BEAKER) 4.8 meq/L 3.5-5.1 (test code = 379) CHLORIDE (BEAKER) 108 meq/L 98-107 H (test code = 382) CO2 (BEAKER) (test 19 meq/L 22-29 L code = 355) BLOOD UREA NITROGEN 24 mg/dL 7-21 H (BEAKER) (test code = 354) CREATININE (BEAKER) 0.71 mg/dL 0.57-1.25 (test code = 358) GLUCOSE RANDOM 164 mg/dL 70-105 H (BEAKER) (test code = 652) CALCIUM (BEAKER) 8.2 mg/dL 8.4-10.2 L (test code = 697) EGFR (BEAKER) (test 85 mL/min/1.73 ESTIMA CASI GFR IS code = 1092) sq m NOT ACCURATE CREATININE CLEARANCE IN PREDICTING GLOMERULAR FILTRATION RATE . ESTIMATED GFR I S NOT APPLICABLE FOR DIALYSIS PATIEN TS. HEPATIC FUNCTION [id number] 06:35:00 Test Item Value Reference Range Interpretation Comments TOTAL PROTEIN (BEAKER) (test code = 6.3 gm/dL 6.0-8.3 770) ALBUMIN (BEAKER) (test code = 1145) 3.0 g/dL 3.5-5.0 L BILIRUBIN TOTAL (BEAKER) (test code 0.3 mg/dL 0.2-1.2 = 377) BILIRUBIN DIRECT (BEAKER) (test 0.2 mg/dL 0.1-0.5 code = 706) ALKALINE PHOSPHATASE (BEAKER) (test 87 U/L 40-150 code = 346) AST (SGOT) (BEAKER) (test code = 33 U/L 5-34 353) ALT (SGPT) (BEAKER) (test code = 40 U/L 6-55 347) CBC (HEMOGRAM ONLY)2019-03-28 05:28:00 Test Item Value Reference Range Interpretation Comments WHITE BLOOD CELL COUNT (BEAKER) 11.2 K/ L 3.5-10.5 H (test code = 775) RED BLOOD CELL COUNT (BEAKER) 3.84 M/ L 3.93-5.22 L (test code = 761) HEMOGLOBIN (BEAKER) (test code = 11.0 GM/DL 11.2-15.7 L 410) HEMATOCRIT (BEAKER) (test code = 34.4 % 34.1-44.9 411) MEAN CORPUSCULAR VOLUME (BEAKER) 89.6 fL 79.4-94.8 (test code = 753) MEAN CORPUSCULAR HEMOGLOBIN 28.6 pg 25.6-32.2 (BEAKER) (test code = 751) MEAN CORPUSCULAR HEMOGLOBIN CONC 32.0 GM/DL 32.2-35.5 L (BEAKER) (test code = 752) RED CELL DISTRIBUTION WIDTH 14.0 % 11.7-14.4 (BEAKER) (test code = 412) PLATELET COUNT (BEAKER) (test 190 K/CU MM 150-450 code = 756) MEAN PLATELET VOLUME (BEAKER) 11.8 fL 9.4-12.3 (test code = 754) NUCLEATED RED BLOOD CELLS 0 /100 WBC 0-0 (BEAKER) (test code = 413) [id number] 07:57:00 Test Item Value Reference Range Interpretation Comments MAGNESIUM (BEAKER) (test code = 1.6 mg/dL 1.6-2.6 627) BASIC METABOLIC [id number] 07:57:00 Test Item Value Reference Range Interpretation Comments SODIUM (BEAKER) 136 meq/L 136-145 (test code = 381) POTASSIUM (BEAKER) 4.4 meq/L 3.5-5.1 (test code = 379) CHLORIDE (BEAKER) 107 meq/L 98-107 (test code = 382) CO2 (BEAKER) (test 23 meq/L 22-29 code = 355) BLOOD UREA NITROGEN 17 mg/dL 7-21 (BEAKER) (test code = 354) CREATININE (BEAKER) 0.74 mg/dL 0.57-1.25 (test code = 358) GLUCOSE RANDOM 188 mg/dL 70-105 H (BEAKER) (test code = 652) CALCIUM (BEAKER) 8.9 mg/dL 8.4-10.2 (test code = 697) EGFR (BEAKER) (test 81 mL/min/1.73 ESTIMA CASI GFR IS code = 1092) sq m NOT ACCURATE CREATININE CLEARANCE IN PREDICTING GLOMERULAR FILTRATION RATE . ESTIMATED GFR I S NOT APPLICABLE FOR DIALYSIS PATIEN TS. [id number] 07:15:00 Test Item Value Reference Range Interpretation Comments PHOSPHORUS (BEAKER) (test code = 3.0 mg/dL 2.3-4.7 604) HEPATIC FUNCTION [id number] 07:15:00 Test Item Value Reference Range Interpretation Comments TOTAL PROTEIN (BEAKER) (test code = 6.8 gm/dL 6.0-8.3 770) ALBUMIN (BEAKER) (test code = 1145) 3.2 g/dL 3.5-5.0 L BILIRUBIN TOTAL (BEAKER) (test code 0.5 mg/dL 0.2-1.2 = 377) BILIRUBIN DIRECT (BEAKER) (test 0.3 mg/dL 0.1-0.5 code = 706) ALKALINE PHOSPHATASE (BEAKER) (test 100 U/L 40-150 code = 346) AST (SGOT) (BEAKER) (test code = 41 U/L 5-34 H 353) ALT (SGPT) (BEAKER) (test code = 50 U/L 6-55 347) CBC (HEMOGRAM ONLY)2019-03-27 05:33:00 Test Item Value Reference Range Interpretation Comments WHITE BLOOD CELL COUNT (BEAKER) 12.7 K/ L 3.5-10.5 H (test code = 775) RED BLOOD CELL COUNT (BEAKER) 4.23 M/ L 3.93-5.22 (test code = 761) HEMOGLOBIN (BEAKER) (test code = 12.0 GM/DL 11.2-15.7 410) HEMATOCRIT (BEAKER) (test code = 37.9 % 34.1-44.9 411) MEAN CORPUSCULAR VOLUME (BEAKER) 89.6 fL 79.4-94.8 (test code = 753) MEAN CORPUSCULAR HEMOGLOBIN 28.4 pg 25.6-32.2 (BEAKER) (test code = 751) MEAN CORPUSCULAR HEMOGLOBIN CONC 31.7 GM/DL 32.2-35.5 L (BEAKER) (test code = 752) RED CELL DISTRIBUTION WIDTH 13.5 % 11.7-14.4 (BEAKER) (test code = 412) PLATELET COUNT (BEAKER) (test 190 K/CU MM 150-450 code = 756) MEAN PLATELET VOLUME (BEAKER) 11.6 fL 9.4-12.3 (test code = 754) NUCLEATED RED BLOOD CELLS 0 /100 WBC 0-0 (BEAKER) (test code = 413) SPIN/CONCENTRATION [id number] 02:54:00 Test Item Value Reference Range Interpretation Comments CONCENTRATION CHARGED (BEAKER) (test Done code = 2657) SODIUM NA-STAT [id number] 14:39:00 Test Item Value Reference Range Interpretation Comments SODIUM (BEAKER) (test code = 381) 135 meq/L 135-148 POTASSIUM-STAT [id number] 14:39:00 Test Item Value Reference Range Interpretation Comments POTASSIUM (BEAKER) (test code = 3.6 meq/L 3.6-5.5 379) HGB/HCT (H&H) - STAT [id number] 14:39:00 Test Item Value Reference Range Interpretation Comments HEMOGLOBIN (BEAKER) (test code = 13.5 g/dL 12.0-15.0 410) HEMATOCRIT (BEAKER) (test code = 40.0 % 36.0-45.0 411) CALCIUM, [id number] 14:39:00 Test Item Value Reference Range Interpretation Comments CALCIUM IONIZED (BEAKER) (test 1.13 mmol/L 1.12-1.27 code = 698) PH, BLOOD (BEAKER) (test code = 7.47 1810) BLOOD GAS, [id number] 14:39:00 Test Item Value Reference Range Interpretation Comments PH ARTERIAL (BEAKER) (test code = 7.47 7.35-7.45 H 383) PCO2 ARTERIAL (BEAKER) (test code 32 mmHg 35-45 L = 384) PO2 ARTERIAL (BEAKER) (test code = 155 mmHg 80-90 H 385) O2 SATURATION ARTERIAL (BEAKER) 99.1 % 96.0-97.0 H (test code = 386) HCO3 ARTERIAL (BEAKER) (test code 23 mmol/L 21-29 = 388) BASE EXCESS ARTERIAL (BEAKER) 0.1 mmol/L -2.0-3.0 (test code = 387) PATIENT TEMPERATURE (BEAKER) (test 37.3 C code = 1818) FIO2 (BEAKER) (test code = 1819) 60.0 % GLUCOSE-STAT [id number] 14:39:00 Test Item Value Reference Range Interpretation Comments GLUCOSE RANDOM (BEAKER) (test code 151 mg/dL 70-110 H = 652) HEPATIC FUNCTION [id number] 06:34:00 Test Item Value Reference Range Interpretation Comments TOTAL PROTEIN (BEAKER) (test code = 7.4 gm/dL 6.0-8.3 770) ALBUMIN (BEAKER) (test code = 1145) 3.6 g/dL 3.5-5.0 BILIRUBIN TOTAL (BEAKER) (test code 0.7 mg/dL 0.2-1.2 = 377) BILIRUBIN DIRECT (BEAKER) (test 0.4 mg/dL 0.1-0.5 code = 706) ALKALINE PHOSPHATASE (BEAKER) (test 125 U/L 40-150 code = 346) AST (SGOT) (BEAKER) (test code = 29 U/L 5-34 353) ALT (SGPT) (BEAKER) (test code = 51 U/L 6-55 347) PROTHROMBIN [id number] 06:17:00 Test Item Value Reference Range Interpretation Comments PROTIME (BEAKER) (test code = 14.8 seconds 11.9-14.2 H 759) INR (BEAKER) (test code = 370) 1.2 <=5.9 Effective 01/10/2019: PT Reference Range ChangeNew: 11.9-14.2 Previous: 11.7- 14.7RECOMMENDED COUMADIN/WARFARIN INR THERAPY RANGESSTANDARD DOSE: 2.0-3.0 Includes: PROPHYLAXIS for venous thrombosis, systemic embolization; TREATMENT for venous thrombosis and/or pulmonary embolus.HIGH RISK: Target INR is2.5-3.5 for patients wiht mechanical heart valves.MR, ABDOMEN, [id number] 16:16:00 FINAL REPORT TECHNIQUE: MRI of the abdomen and MRCP WITHOUT intravenous contrast. 3-D volume reconstructions were obtained to evaluate the biliary ductal system. INDICATION: CholelithiasisVery dilated CBD with cystic duct stone on CT. COMPARISON: None. FINDINGS: ABSENCE OF INTRA VENOUS CONTRAST DECREASES SENSITIVITY FOR DETECTION OF FOCAL [...] lesions. PERITONEUM/RETROPERITONEUM: No free fluid.LYMPH NODES: No lymphadenopa thy.VESSELS: Unremarkable. GI TRACT: No distention or wall [...] MDReport Verified Date/Time: 03/25/2019 16:16:25 Reading Location: [facility] B1 C013Y CT Body Reading Room REHENSIVE METABOLIC [id number] 05:51:00 Test Item Value Reference Range Interpretation Comments TOTAL PROTEIN 7.4 gm/dL 6.0-8.3 (BEAKER) (test code = 770) ALBUMIN (BEAKER) 3.6 g/dL 3.5-5.0 (test code = 1145) ALKALINE PHOSPHATASE 126 U/L 40-150 (BEAKER) (test code = 346) BILIRUBIN TOTAL 0.8 mg/dL 0.2-1.2 (BEAKER) (test code = 377) SODIUM (BEAKER) (test 137 meq/L 136-145 code = 381) POTASSIUM (BEAKER) 4.2 meq/L 3.5-5.1 (test code = 379) CHLORIDE (BEAKER) 107 meq/L 98-107 (test code = 382) CO2 (BEAKER) (test 23 meq/L 22-29 code = 355) BLOOD UREA NITROGEN 12 mg/dL 7-21 (BEAKER) (test code = 354) CREATININE (BEAKER) 0.77 mg/dL 0.57-1.25 (test code = 358) GLUCOSE RANDOM 134 mg/dL 70-105 H (BEAKER) (test code = 652) CALCIUM (BEAKER) 9.3 mg/dL 8.4-10.2 (test code = 697) AST (SGOT) (BEAKER) 44 U/L 5-34 H (test code = 353) ALT (SGPT) (BEAKER) 62 U/L 6-55 H (test code = 347) EGFR (BEAKER) (test 78 mL/min/1.73 ESTIMA CASI GFR IS code = 1092) sq m NOT ACCURATE CREATININE CLEARANCE IN PREDICTING GLOMERULAR FILTRATION RATE . ESTIMATED GFR I S NOT APPLICABLE FOR DIALYSIS PATIEN TS. CBC (HEMOGRAM ONLY)2019-03-25 05:09:00 Test Item Value Reference Range Interpretation Comments WHITE BLOOD CELL COUNT (BEAKER) 10.3 K/ L 3.5-10.5 (test code = 775) RED BLOOD CELL COUNT (BEAKER) 4.57 M/ L 3.93-5.22 (test code = 761) HEMOGLOBIN (BEAKER) (test code = 13.0 GM/DL 11.2-15.7 410) HEMATOCRIT (BEAKER) (test code = 40.5 % 34.1-44.9 411) MEAN CORPUSCULAR VOLUME (BEAKER) 88.6 fL 79.4-94.8 (test code = 753) MEAN CORPUSCULAR HEMOGLOBIN 28.4 pg 25.6-32.2 (BEAKER) (test code = 751) MEAN CORPUSCULAR HEMOGLOBIN CONC 32.1 GM/DL 32.2-35.5 L (BEAKER) (test code = 752) RED CELL DISTRIBUTION WIDTH 13.9 % 11.7-14.4 (BEAKER) (test code = 412) PLATELET COUNT (BEAKER) (test 209 K/CU MM 150-450 code = 756) MEAN PLATELET VOLUME (BEAKER) 11.1 fL 9.4-12.3 (test code = 754) NUCLEATED RED BLOOD CELLS 0 /100 WBC 0-0 (BEAKER) (test code = 413)
--- OUTSIDE RECORDS SUMMARY | 2020-04-27 13:59 | XMS REPORT | Clinical Summary ---
:1960 Author Organization [facility] Address [address] [place] [address] Care Team Providers Name Role Phone Pcp Primary Care Provider Unavailable Allergies Active Allergy Reactions Severity Noted Date Comments Cefaclor Rash Low 03/24/2019 Cephalexin Rash Low 03/24/2019 Penicillins Anaphylaxis High 03/24/2019 Medications Medication Sig Dispensed Refills Start Date End Date Status levothyroxine Take 100 mcg by 0 Active (SYNTHROID, mouth Every LEVOTHROID) 100 MCG morning on an tablet empty stomach. montelukast Take 10 mg by 0 Acti ve (SINGULAIR) 10 mg mouth nightly. tablet fexofenadine Take 180 mg by 0 Ac tive (TIM) 180 MG mouth daily. tablet pantoprazole Take 40 mg by 0 Act gurmeet (PROTONIX) 40 MG mouth daily. tablet gabapentin Take 1 capsule 60 capsule 2 03/28/2019 03/27/2020 E xpired (NEURONTIN) 300 MG (300 mg total) capsule by mouth 2 (two) times daily. Active Problems Problem Noted Date Calculus of bile duct with acute cholecystitis without obstruction 03/25/2019 Choledocholithiasis 03/25/2019 Social History Tobacco Use Types Packs/Day Years Used Date Current Every Day Smoker 0.5 43 Smokeless Tobacco: Never Used Tobacco Cessation: Ready to Quit: No; Co unseling Given: No Alcohol Use Drinks/Week oz/Week Comments Yes social Sex Assigned at Date Recorded Not on file Job Start Date Occupation Industry Not on file Not on file Not on file Travel History Travel Start Travel End No recent travel history available. Last Filed Vital Signs Not on file Plan of Treatment Not on file Results Not on fileafter 04/27/2019 Insurance Payer Benefit Plan / Group Subscriber ID Type Phone A ddress [employer] - [employer] CARE HU[employer]NA HMO POS xxxxxxxxx HMO/POS ([place]) [place] [address]
[2020-04-27 14:41] LABS: Absolute Lymphocytes (CBC) 2.3 K/uL (0.7-4.9); Basophils % 1.1 % (0-1.3); Hematocrit 46.1 % (36.0-45.0); Lymphocytes % 33.5 % (15.3-44.8); MPV 9.5 fL (7.6-11.3); RBC Red Blood Cell Count 5.25 M/uL (3.86-4.86)
[2020-04-27] MEDS ORDERED: ONDANSETRON 4 MG/2 ML VIAL ONE ×3 (14:45→16:33)
[2020-04-27] MEDS ORDERED: MORPHINE 2 MG/ML SYR ONE ×2 (14:45→15:23)
[2020-04-27] MEDS ORDERED: NA CHLORIDE 0.9% 1,000 ML ONE (14:46)
--- NOTE | 2020-04-27 14:49 | RAD REPORT ---
EXAM DESCRIPTION: CT - Stone Protocol - 04/27/2020 2:41 pm CLINICAL HISTORY: Flank pain. FLANK PAIN COMPARISON: Abdomen Pelvis W Contrast dated 04/17/2019 TECHNIQUE: Axial images were obtained without oral or IV contrast. Lack of contrast limits solid org an and vascular assessment. The [id number]-uc-szet spans the entirety of the system partially obscuring uppermost abdomen and lung bases. Coronal reformatted images were obtained and reviewed. All CT scans are performed using dose optimization technique as appropriate and may include automated exposure control or mA/KV adjustment according to patient size. FINDINGS: The lower lung fraser are clear. Cholecystectomy clips. Imaged portions of the liver and spleen show no suspicious findings on non-contrast imaging. The panc reas and adrenal glands are normal. No pathologic lymphadenopathy in the abdomen or pelvis. No urinary tract stones or obstructive uropathy. No bowel obstruction, free air, free fluid or abscess. Normal appendix noted.Mild sigmoid diverticulo sis coli without diverticulitis. No significant bony abnormality. IMPRESSION: No urinary tract stones or obstructive uropathy.
[2020-04-27 15:02] LABS: Albumin 3.5 g/dL (3.4-5.0); Bilirubin Direct 0.1 mg/dL (0-0.2); Bilirubin Total 0.4 mg/dL (0.2-1.0); Potassium 3.8 mmol/L (3.5-5.1); Protein, Total 9.3 g/dL (6.4-8.2)
--- NOTE | 2020-04-27 15:31 | EDPHYS ---
Physician Documentation [facility] Name: Tere Urbina Age: 59 yrs Sex: Female : 1960 Arrival Date: 04/27/2020 Time: 13:59 Bed 4 Private MD: KERWIN Physician Wilfredo Arias HPI: 04/27 15:22 This 59 yrs old Female presents to ER via Ambulatory with complaints of annie Possible Kidney Stone. 15:22 The patient presents with abdominal pain in the right upper quadrant, abdominal annie distention in the upper abdomen, in the lower abdomen. Onset: The symptoms/episode began/occurred 1 day(s) ago. The patient presents with pain that is acute, with no known mechanism of injury. The symptoms are located in the right mid back and right low back. Onset: The symptoms/episode began/occurred 1 day(s) ago. The pain does not radiate. Associated signs and symptoms: The patient has no apparent associated signs or symptoms. The problem was sustained from unknown cause. Modifying factors: The patient symptoms are alleviated by remaining still, the patient symptoms are aggravated by movement. Modifying factors: The patient symptoms are alleviated by the patient symptoms are aggravated by. Severity of symptoms: At their worst the symptoms were mild, moderate, this morning, earlier today, in the emergency department the symptoms are unchanged. Historical: - Allergies: 14:13 Bactrim; hb 14:13 Ceclor; hb 14:13 Keflex; hb 14:13 PENICILLINS; hb - Home Meds: 14:13 levothyroxine 100 mcg tab 1 tab once daily [Active]; pantoprazole 40 mg Oral TbEC 1 tab hb once daily [Active]; Singulair 10 mg Oral tab 1 tab once daily [Active]; - PMHx: 14:13 GERD; Hypothyroidism; ibs; seasonal allergies; hb - PSHx: 14:13 Cholecystectomy; Tonsillectomy; Knee surgery; patrial hysterectomy; hb - Immunization history:: Adult Immunizations up to date. - Social history:: Smoking status: Patient denies any tobacco usage or history of. - Family history:: not pertinent. ROS: 15:22 Constitutional: Negative for fever, chills, and weight loss, Eyes: Negative for injury, annie pain, redness, and discharge, ENT: Negative for injury, pain, and discharge, Neck: Negative for injury, pain, and swelling, Cardiovascular: Negative for chest pain, palpitations, and edema, Respiratory: Negative for shortness of breath, cough, wheezing, and pleuritic chest pain, : Negative for injury, bleeding, discharge, and swelling, MS/Extremity: Negative for injury and deformity, Skin: Negative for injury, rash, and discoloration, Neuro: Negative for headache, weakness, numbness, tingling, and seizure, Psych: Negative for depression, anxiety, suicide ideation, homicidal ideation, and hallucinations, Allergy/Immunology: Negative for hives, rash, and allergies, Endocrine: Negative for neck swelling, polydipsia, polyuria, polyphagia, and marked weight changes, Hematologic/Lymphatic: Negative for swollen nodes, abnormal bleeding, and unusual bruising. 15:22 Abdomen/GI: Positive for abdominal pain, of the posterior aspect of right lateral abdomen, anterior aspect of right lateral abdomen, right upper quadrant and right lower quadrant. Exam: 15:22 Constitutional: This is a well developed, well nourished patient who is awake, alert, annie and in no acute distress. Head/Face: Normocephalic, atraumatic. Eyes: Pupils equal round and reactive to light, extra-ocular motions intact. Lids and lashes normal. Conjunctiva and sclera are non-icteric and not injected. Cornea within normal limits. Periorbital areas with no swelling, redness, or edema. ENT: Nares patent. No nasal discharge, no septal abnormalities noted. Tympanic membranes are normal and external auditory canals are clear. Oropharynx with no redness, swelling, or masses, exudates, or evidence of obstruction, uvula midline. Mucous membranes moist. Neck: Trachea midline, no thyromegaly or masses palpated, and no cervical lymphadenopathy. Supple, full range of motion without nuchal rigidity, or vertebral point tenderness. No Meningismus. Chest/axilla: Normal chest wall appearance and motion. Nontender with no deformity. No lesions are appreciated. Cardiovascular: Regular rate and rhythm with a normal S1 and S2. No gallops, murmurs, or rubs. Normal PMI, no JVD. No pulse deficits. Respiratory: Lungs have equal breath sounds bilaterally, clear to auscultation and percussion. No rales, rhonchi or wheezes noted. No increased work of breathing, no retractions or nasal flaring. Female : Normal external genitalia. Skin: Warm, dry with normal turgor. Normal color with no rashes, no lesions, and no evidence of cellulitis. MS/ Extremity: Pulses equal, no cyanosis. Neurovascular intact. Full, normal range of motion. Neuro: Awake and alert, GCS 15, oriented to person, place, time, and situation. Cranial nerves II-XII grossly intact. Motor strength 5/5 in all extremities. Sensory grossly intact. Cerebellar exam normal. Normal gait. Psych: Awake, alert, with orientation to person, place and time. Behavior, mood, and affect are within normal limits. 15:22 Abdomen/GI: Inspection: distension, Bowel sounds: active, Palpation: nontender, Liver: no appreciated palpable abnormalities, Hernia: not appreciated. 15:27 Skin: no rash present. annie 15:40 Musculoskeletal/extremity: ROM: intact in all extremities, full active range of motion, annie full passive range of motion, Circulation is intact in all extremities. Sensation intact. Compartment Syndrome exam of affected extremity: is normal. Joints: DVT Exam: No signs of deep vein thrombosis. no pain, no swelling, no tenderness, negative Homans' sign noted on exam, no appreciated bluish discoloration, no erythema, no increased warmth. 17:17 ECG was reviewed by the Attending Physician. [facility] Vital Signs: 14:11 BP 128 / 69; Pulse 87; Resp 16; Temp 99.1; Pulse Ox 99% on R/A; Weight 91.63 kg; Height hb 5 ft. 7 in. (170.18 cm); Pain 10/10; 14:52 BP 119 / 79; Pulse 77; Resp 18; Temp 98.9; Pulse Ox 98% on R/A; Pain 10/10; ll2 16:00 BP 105 / 85; Pulse 75; Resp 15; Temp 99; Pulse Ox 99% on R/A; Pain 7/10; ll2 17:00 BP 115 / 66; Pulse 66; Resp 14; Pulse Ox 98% on R/A; Pain 4/10; ll2 14:11 Body Mass Index 31.64 (91.63 kg, 170.18 cm) hb MDM: 14:22 Patient medically screened. [facility] 15:26 Data reviewed: vital signs, nurses notes, lab test result(s), radiologic studies, CT annie scan. 15:26 Differential diagnosis: Obesity sprain, Ureterolithiasis cholecystitis, Cholelithiasis, annie diverticulitis, gastritis, gastroesophageal reflux disease, non-specific abd pain, pancreatitis, vertebral fracture. Data interpreted: netsuite developer: rate is 77 beats/min, rhythm is regular, Pulse oximetry: on room air is 98 %. Test interpretation: by ED physician or midlevel provider: ECG, plain radiologic studies. Counseling: I had a detailed discussion with the patient and/or guardian regarding: the historical points, exam findings, and any diagnostic results supporting the discharge/admit diagnosis, lab results, radiology results, the need for outpatient follow up, for definitive care, a family practitioner. 15:29 Medication response: morphine markedly relieved the patient's pain. Symptoms have annie improved, 04/27 14:24 Order name: Basic Metabolic Panel; Complete Time: 15:18 [facility] 04/27 14:24 Order name: CBC with Diff; Complete Time: 15:18 [facility] 04/27 14:24 Order name: Hepatic Function; Complete Time: 15:18 [facility] 04/27 14:24 Order name: Lipase; Complete Time: 15:18 [facility] 04/27 14:24 Order name: Urine Culture [facility] 04/27 14:26 Order name: Urine Dipstick--Ancillary (enter results); Complete Time: 17:09 04/27 14:24 Order name: CT Stone Protocol; Complete Time: 15:18 [facility] 04/27 15:40 Order name: CT Aorta for Dissection [facility] 04/27 14:24 Order name: IV Saline Lock; Complete Time: 14:31 [facility] 04/27 14:24 Order name: Labs collected and sent; Complete Time: 14:31 [facility] 04/27 14:24 Order name: Urine Dipstick-Ancillary (obtain specimen); Complete Time: 14:31 [facility] 04/27 16:17 Order name: EKG; Complete Time: 16:17 [facility] 04/27 16:17 Order name: EKG - Nurse/Tech; Complete Time: 17:17 [facility] EC:17 Rate is 54 beats/min. Rhythm is regular. QRS Adams is Normal. W[place] interval is normal. QRS annie interval is normal. QT interval is normal. No Q waves. T waves are Normal. No ST changes noted. Clinical impression: Sinus bradycardia. Interpreted by me. Reviewed by me. Administered Medications: 14:54 Drug: NS 0.9% 1000 ml Route: IV; Rate: 1 bolus; Site: right antecubital; ll2 15:45 Follow up: Response: No adverse reaction; IV Status: Completed infusion ll2 14:54 Drug: morphine 2 mg Route: IVP; Site: right antecubital; ll2 14:54 Drug: Zofran (Ondansetron) 4 mg Route: IVP; Site: right antecubital; ll2 15:18 Follow up: Response: No adverse reaction ll2 15:18 Drug: morphine 2 mg Route: IVP; Site: right antecubital; ll2 15:18 Follow up: Response: No adverse reaction; Pain is decreased; RASS: Alert and Calm (0) ll2 15:44 Drug: TORadol 30 mg Route: IVP; Site: right antecubital; ll2 15:46 Follow up: Response: No adverse reaction ll2 16:35 Drug: Benadryl 50 mg Route: IVP; Site: right antecubital; ll2 16:46 Follow up: Response: No adverse reaction ll2 16:36 Drug: SOLU-Medrol 125 mg Route: IVP; Site: right antecubital; ll2 16:46 Follow up: Response: No adverse reaction ll2 16:36 Drug: Pepcid 20 mg Route: IVP; Site: right antecubital; ll2 16:46 Follow up: Response: No adverse reaction ll2 16:36 Drug: predniSONE 40 mg Route: PO; ll2 16:46 Follow up: Response: No adverse reaction ll2 16:36 Drug: Zofran (Ondansetron) 4 mg Route: IVP; Site: right antecubital; ll2 16:46 Follow up: Response: No adverse reaction ll2 Disposition: 04/27/20 17:12 Discharged to Home. Impression: Low back pain, Pleurisy, Strain of muscle and tendon of back wall of thorax. - Condition is Stable. - Discharge Instructions: Back Pain, Adult, Musculoskeletal Pain, Pleurisy, Back Injury Prevention, [id number], Back Pain, Adult, [id number]. - Prescriptions for Ibuprofen 600 mg Oral Tablet - take 1 tablet by ORAL route 3 times per day As needed take with food; 21 tablet. Pepcid 20 mg Oral Tablet - take 1 tablet by ORAL route every 12 hours for 10 days; 20 tablet. Tylenol- Codeine #3 300-30 mg Oral Tablet - take 2 tablet by ORAL route every 6 hours As needed; 30 tablet. Zofran 4 mg Oral Tablet - take 1 tablet by ORAL route every 12 hours As needed; 14 tablet. - Medication Reconciliation Form, Thank You Letter, Antibiotic Education, Prescription Opioid Use form. - Follow up: Private Physician; When: 2 - 3 days; Reason: Recheck today's complaints, Continuance of care, Re-evaluation by your physician. - Problem is new. - Symptoms have improved. Signatures: Dispatcher [employer] [facility] Wilfredo Arias MD MD cha Baxter, Heather, RN RN Claudette Montes RN RN ll2 Corrections: (The following items were deleted from the chart) 16:01 15:30 04/27/2020 15:30 Discharged to Home. Impression: Low back pain; Strain of muscle annie and tendon of back wall of thorax. Condition is Stable. Forms are Medication Reconciliation Form, Thank You Letter, Antibiotic Education, Prescription Opioid Use. Follow up: Private Physician; When: 2 - 3 days; Reason: Recheck today's complaints, Continuance of care, Re-evaluation by your physician. Problem is new. Symptoms have improved. [facility] 16:32 15:39 Chest For PE Angio+CT.RAD.BRZ ordered. [facility] 17:31 17:12 04/27/2020 17:12 Discharged to Home. Impression: Low back pain; Pleurisy; Strain ll2 of muscle and tendon of back wall of thorax. Condition is Stable. Discharge Instructions: Back Pain, Adult, Musculoskeletal Pain, Pleurisy, Back Injury Prevention, [id number], Back Pain, Adult, [id number]. Prescriptions for Ibuprofen 600 mg Oral Tablet - take 1 tablet by ORAL route 3 times per day As needed take with food; 21 tablet, Tylenol-Codeine #3 300-30 mg Oral Tablet - take 2 tablets by ORAL route every 6 hours As needed; 24 tablet, Zofran 4 mg Oral Tablet - take 1 tablet by ORAL route every 12 hours As needed; 14 tablet, Ibuprofen 600 mg Oral Tablet - take 1 tablet by ORAL route 3 times per day As needed take with food; 21 tablet, Pepcid 20 mg Oral Tablet - take 1 tablet by ORAL route every 12 hours for 10 days; 20 tablet, Tylenol-Codeine #3 300-30 mg Oral Tablet - take 2 tablet by ORAL route every 6 hours As needed; 30 tablet, Zofran 4 mg Oral Tablet - take 1 tablet by ORAL route every 12 hours As needed; 14 tablet. and Forms are Medication Reconciliation Form, Thank You Letter, Antibiotic Education, Prescription Opioid Use. Follow up: Private Physician; When: 2 - 3 days; Reason: Recheck today's complaints, Continuance of care, Re-evaluation by your physician. Problem is new. Symptoms have improved. annie
--- NOTE | 2020-04-27 15:31 | ER ---
Nurse's Notes [facility] Name: Tere Urbina Age: 59 yrs Sex: Female : 1960 Arrival Date: 04/27/2020 Time: 13:59 Bed 4 Private MD: Diagnosis: Low back pain;Pleurisy;Strain of muscle and tendon of back wall of thorax Presentation: 04/27 14:11 Chief complaint: Right flank pain x 3 days, nausea today. Denies urinary s/s. hb Coronavirus screen: At this time, the client does not indicate any symptoms associated with coronavirus-19. Ebola Screen: No symptoms or risks identified at this time. Initial Sepsis Screen: Does the patient meet any 2 criteria? No. Patient's initial sepsis screen is negative. Does the patient have a suspected source of infection? No. Patient's initial sepsis screen is negative. Risk Assessment: Do you want to hurt yourself or someone else? Patient reports no desire to harm self or others. Onset of symptoms was April 24, 2020. 14:11 Method Of Arrival: Ambulatory hb 14:11 Acuity: KAITLYNN 3 hb Historical: - Allergies: 14:13 Bactrim; hb 14:13 Ceclor; hb 14:13 Keflex; hb 14:13 PENICILLINS; hb - Home Meds: 14:13 levothyroxine 100 mcg tab 1 tab once daily [Active]; pantoprazole 40 mg Oral TbEC 1 tab hb once daily [Active]; Singulair 10 mg Oral tab 1 tab once daily [Active]; - PMHx: 14:13 GERD; Hypothyroidism; ibs; seasonal allergies; hb - PSHx: 14:13 Cholecystectomy; Tonsillectomy; Knee surgery; patrial hysterectomy; hb - Immunization history:: Adult Immunizations up to date. - Social history:: Smoking status: Patient denies any tobacco usage or history of. - Family history:: not pertinent. Screenin:39 Abuse screen: Denies threats or abuse. Nutritional screening: No deficits noted. ll2 Tuberculosis screening: No symptoms or risk factors identified. Fall Risk IV access (20 points). Ambulatory Aid- None/Bed Rest/Nurse Assist (0 pts). Gait- Normal/Bed Rest/Wheelchair (0 pts) Mental Status- Oriented to own ability (0 pts). Total Angel Fall Scale indicates No Risk (0-24 pts). Exposure risk/Travel Screening: None identified. Assessment: 14:36 General: Appears in no apparent distress. uncomfortable, Behavior is calm, cooperative, ll2 appropriate for age. Pain: Complains of pain in posterior aspect of right lateral abdomen, anterior aspect of right lateral abdomen and right upper quadrant Pain currently is 13.5 out of 10 on a pain scale. Quality of pain is described as crampy, sharp. Neuro: Level of Consciousness is awake, alert, obeys commands, Oriented to person, place, time, situation. Cardiovascular: Capillary refill < 3 seconds Patient's skin is warm and dry. Respiratory: Airway is patent Respiratory effort is even, unlabored, Respiratory pattern is regular, symmetrical. GI: Bowel sounds present X 4 quads. Abdomen is tender to palpation Guarding noted in right upper quadrant Reports upper abdominal pain. : No signs and/or symptoms were reported regarding the genitourinary system. EENT: No signs and/or symptoms were reported regarding the EENT system. Derm: Skin is intact, is healthy with good turgor, Skin is dry, Skin is pink, warm \T\ dry. Skin temperature is warm. Musculoskeletal: Circulation, motion, and sensation intact. Range of motion: intact in all extremities. 14:51 Reassessment: Pt states the pain started on Tuesday, started minimal, pt thought it was ll2 a pulled muscle. the pain has steadily gotten worse and now became unbearable. : Denies burning with urination, inability to void, urinary frequency. 15:17 Reassessment: Patient is alert, oriented x 3, equal unlabored respirations, skin ll2 warm/dry/pink. Pt reports increased pain again, ERD to bedside for assessment. 2mg of morphine administered to RT AC. 15:38 Reassessment: discharge pending CT results. ss 16:01 Reassessment: discharge cancelled. ss 16:37 Reassessment: Patient and/or family updated on plan of care and expected duration. Pain ll2 level reassessed. Patient is alert, oriented x 3, equal unlabored respirations, skin warm/dry/pink. states her pain is now bearable at a 7/10. Vital Signs: 14:11 BP 128 / 69; Pulse 87; Resp 16; Temp 99.1; Pulse Ox 99% on R/A; Weight 91.63 kg; Height hb 5 ft. 7 in. (170.18 cm); Pain 10/10; 14:52 BP 119 / 79; Pulse 77; Resp 18; Temp 98.9; Pulse Ox 98% on R/A; Pain 10/10; ll2 16:00 BP 105 / 85; Pulse 75; Resp 15; Temp 99; Pulse Ox 99% on R/A; Pain 7/10; ll2 17:00 BP 115 / 66; Pulse 66; Resp 14; Pulse Ox 98% on R/A; Pain 4/10; ll2 14:11 Body Mass Index 31.64 (91.63 kg, 170.18 cm) hb ED Course: 13:59 Patient arrived in ED. mr 14:12 Triage completed. hb 14:13 Arm band placed on. hb 14:16 Eleazar White, MAKEDA is Primary Nurse. ll1 14:22 Wilfredo Arias MD is Attending Physician. annie 14:27 Initial lab(s) drawn, by me, sent to lab. Inserted saline lock: 20 gauge in right Blood kj1 collected. 14:39 Urine collected: clean catch specimen, clear. ll2 14:41 CT Stone Protocol In Process Unspecified. EDMS 16:52 CT Aorta for Dissection In Process Unspecified. EDMS 17:14 Patient has correct armband on for positive identification. Placed in gown. Bed in low ll2 position. Call light in reach. Side rails up X 1. 17:30 No provider procedures requiring assistance completed. IV discontinued, intact, ll2 bleeding controlled, No redness/swelling at site. Pressure dressing applied. Administered Medications: 14:54 Drug: NS 0.9% 1000 ml Route: IV; Rate: 1 bolus; Site: right antecubital; ll2 15:45 Follow up: Response: No adverse reaction; IV Status: Completed infusion ll2 14:54 Drug: morphine 2 mg Route: IVP; Site: right antecubital; ll2 14:54 Drug: Zofran (Ondansetron) 4 mg Route: IVP; Site: right antecubital; ll2 15:18 Follow up: Response: No adverse reaction ll2 15:18 Drug: morphine 2 mg Route: IVP; Site: right antecubital; ll2 15:18 Follow up: Response: No adverse reaction; Pain is decreased; RASS: Alert and Calm (0) ll2 15:44 Drug: TORadol 30 mg Route: IVP; Site: right antecubital; ll2 15:46 Follow up: Response: No adverse reaction ll2 16:35 Drug: Benadryl 50 mg Route: IVP; Site: right antecubital; ll2 16:46 Follow up: Response: No adverse reaction ll2 16:36 Drug: SOLU-Medrol 125 mg Route: IVP; Site: right antecubital; ll2 16:46 Follow up: Response: No adverse reaction ll2 16:36 Drug: Pepcid 20 mg Route: IVP; Site: right antecubital; ll2 16:46 Follow up: Response: No adverse reaction ll2 16:36 Drug: predniSONE 40 mg Route: PO; ll2 16:46 Follow up: Response: No adverse reaction ll2 16:36 Drug: Zofran (Ondansetron) 4 mg Route: IVP; Site: right antecubital; ll2 16:46 Follow up: Response: No adverse reaction ll2 Outcome: 15:30 Discharge ordered by . annie 17:12 Discharge ordered by . annie 17:30 Discharged to home via wheelchair. ll2 17:30 Condition: stable 17:30 Discharge instructions given to patient, Instructed on discharge instructions, follow up and referral plans. medication usage, Demonstrated understanding of instructions, follow-up care, medications, Prescriptions given X 4. 17:31 Patient left the ED. ll2 Signatures: Dispatcher [employer] [facility]DC Wilfredo Arias MD MD cha Rivera, Mary mr Smirch, Shelby, RN RN ss Baxter, Heather, RN RN hb Jackson, Kandis kj1 Claudette Montes RN RN ll2 Eleazar White RN RN ll1
[2020-04-27] MEDS ORDERED: KETOROLAC 30 MG/ML INJ ONE (15:51)
[2020-04-27 16:15] LABS: Urine Blood NEGATIVE (NEG); Urine Glucose NEGATIVE (NEG); Urine Protein NEGATIVE (NEG)
[2020-04-27] MEDS ORDERED: METHYLPREDNISOLONE 125 MG INJ ONE ×2 (16:24→16:32)
[2020-04-27] MEDS ORDERED: predniSONE 20 MG TAB ONE ×2 (16:24→16:33)
[2020-04-27] MEDS ORDERED: DIPHENHYDRAMINE 50 MG/ML VIAL ONE ×2 (16:24→16:32)
[2020-04-27] MEDS ORDERED: FAMOTIDINE 20 MG/2 ML VIAL IV ONE ×2 (16:27→16:33)
--- NOTE | 2020-04-27 17:10 | RAD REPORT ---
EXAM DESCRIPTION: CT - Angio Aorta For Dissection - 04/27/2020 4:52 pm CLINICAL HISTORY: Chest pain radiating to the back. Dissection;PE COMPARISON: Stone Protocol dated 04/27/2020 TECHNIQUE: CT angiography of the aorta was performed with MIPs. All CT scans are performed using dose optimization technique as appropriate and may include automated exposure control or mA/KV adjustment according to patient size. FINDINGS: A left aortic arch is present with normal branching pattern of the great vessels.No acute aortic finding is seen such as aneurysm, penetrating ulcer or dissection. The celiac axis, SMA, LEORA and renal arteries are patent. No evidence of pulmonary embolism. The lungs are mildly emphysematous but clear. Mild diffuse fatty liver. Cholecystectomy clips.The spleen, pancreas, adrenal glands and kidneys are within normal limits for arterial phase imaging. No bowel obstruction, free fluid or abscess.Sigmoid diverticulosis without diverticulitis. Appendix i s normal.No pathologic enlarged lymphadenopathy identified. No fracture or worrisome bone lesion seen. IMPRESSION: No acute aortic finding is demonstrated.
[2020-04-27 18:31] VITALS: TEMP 99
[2020-04-27 18:33] VITALS: BP 115/66; O2SAT 98
== END 2020-04-27 17:31 | disposition home or self-care (01) ==
LOC: ER 13:57
DX: R09.1 Pleurisy (principal); S29.012A Strain of muscle and tendon of back wall of thorax, initial encounter; E03.9 Hypothyroidism, unspecified; K21.9 Gastro-esophageal reflux disease without esophagitis; Z88.0 Allergy status to penicillin; Z88.1 Allergy status to other antibiotic agents
CPT/HCPCS: 96361; 93005; 87088; 85025; 87086; 80048; 36415; 80076; 81003; 83690; 76377; 71275; 74175; 74176; 96375; 96374; 99284; Q9967; J1200; J2270 ×2; J7030; J2930; J2405 ×2; J7512

== ENCOUNTER 2021-07-08 23:06 | Emergency (ER) | payer BC ==
--- OUTSIDE RECORDS SUMMARY | 2021-07-08 23:12 | XMS REPORT | Continuity of Care Document ---
:1960 Author Organization [facility] t Address [address] [place] [address] Dr. Goff [address] [place] [id number] Care Team Providers Name Role Phone POOJA MELTON Attending Clinician Unavailable POOJA MELTON Admitting Clinician Unavailable Problems This patient has no known problems. Allergies, Adverse Reactions, Alerts This patient has no known allergies or adverse reactions. Medications This patient has no known medications. Procedures This patient has no known procedures. Encounters Start End Encounter Admission Attending Care Care Encounter Source Date/Time Date/Time Type Type Clinicians Facility Department ID 2021-06-16 2021-06-16 ambulatory [facility] [id number] [facility] 2021-06-09 2021-06-09 Outpatient [facility] [id number] [facility] 2021-05-27 2021-05-27 [facility] [id number] [facility] 2021-05-22 2021-05-22 [facility] [id number] [facility] 2021-04-23 2021-04-23 [facility] [id number] [facility] 2021-04-23 2021-04-23 [facility] [id number] [facility] 2021-04-21 2021-04-21 [facility] [id number] [facility] 2021-04-13 2021-04-13 [facility] [id number] [facility] 2021-04-13 2021-04-13 [facility] [id number] [facility] 2021-03-19 2021-03-19 [facility] [id number] [facility] 2021-02-04 2021-02-04 [facility] [id number] [facility] 2021-02-02 2021-02-02 [facility] [id number] [facility] 2021-02-02 2021-02-02 [facility] [id number] [facility] 2020-12-25 2020-12-25 [facility] [id number] [facility] Results Test Description Test Time Test Comments Results Result Comments Source AFB CULTURE + SMEAR 2019-05-02 12:27:00 Test Item Value Reference Range Interpretation Comme nts CULTURE (BEAKER) (test code = 1095) No acid-fast bacilli isolated i n 42 days AFB SMEAR (BEAKER) (test code = 994) No acid fast bacilli seen FUNGUS CULTURE + [id number] 16:41:00 Test Item Value Reference Range Interpretation Comments CULTURE (BEAKER) (test No fungus isolated in code = 1095) 28 days FUNGUS SMEAR (BEAKER) No fungi seen (test code = 1406) MR, ABDOMEN, WITHOUT IV [id number] 12:41:00FINAL REPORT TECHNIQUE: MRI of the abdomen [...] MDReport Verified Date/Time: 04/24/2019 12:41:31 Reading Location: [facility] C013Y CT Body Reading Room ROBIC [id number] 18:13:00 Test Item Value Reference Range Interpretation Comments CULTURE (BEAKER) (test No anaerobes isolated code = 1095) SURGICALLY OBTAINED CULTURE + GRAM [id number] 09:52:00 Test Item Value Reference Range Interpretation [...] No organisms (BEAKER) (test code = seen 221293) TISSUE [id number] 17:27:00Surgical Pathology Report Case: [id number] Authorizing Provider: Rufus Hinds MD Collected: 03/26/2019 1435 Ordering Location: [facility] Received: 03/26/2019 1639 SERVICES Pathologist: Chencho Wilson MD Specimen: Gallbladder, gallbladder A. GALLBLADDER, CHOLECYSTECTOMY: - ACUTE AND CHRONIC CHOLECYSTITIS WITH CHOLELITHIASIS Signing Pathologist Veronica eric Phone Line: [phone] signed by Chencho Wilson MD on 03/28/2019 at 5:27 [id number] cholecystitis Gallbladder A. Received in formalin, labeled [...] and no nodules or masses are identified. Naturalist sections are submitted in cassettes A1-A2. DR/plPerformed.[id number] 06:35:00 Test Item Value Reference Range Interpretation Comments PHOSPHORUS (BEAKER) (test code = 2.2 mg/dL 2.3-4.7 L 604) [id number] 06:35:00 Test Item Value Reference Range Interpretation Comments MAGNESIUM (BEAKER) (test code = 2.0 mg/dL 1.6-2.6 627) BASIC METABOLIC [id number] 06:35:00 Test Item Value Reference Range Interpretation [...] APPLICABLE FOR DIALYSIS PATIEN TS. HEPATIC FUNCTION [id number] 06:35:00 Test Item Value Reference Range Interpretation [...] WBC 0-0 (BEAKER) (test code = 413) [id number] 07:57:00 Test Item Value Reference Range Interpretation Comments MAGNESIUM (BEAKER) (test code = 1.6 mg/dL 1.6-2.6 627) BASIC METABOLIC [id number] 07:57:00 Test Item Value Reference Range Interpretation [...] S NOT APPLICABLE FOR DIALYSIS PATIEN TS. [id number] 07:15:00 Test Item Value Reference Range Interpretation Comments PHOSPHORUS (BEAKER) (test code = 3.0 mg/dL 2.3-4.7 604) HEPATIC FUNCTION [id number] 07:15:00 Test Item Value Reference Range Interpretation [...] 0-0 (BEAKER) (test code = 413) SPIN/CONCENTRATION [id number] 02:54:00 Test Item Value Reference Range Interpretation Comments CONCENTRATION CHARGED (BEAKER) (test Done code = 2657) SODIUM NA-STAT [id number] 14:39:00 Test Item Value Reference Range Interpretation Comments SODIUM (BEAKER) (test code = 381) 135 meq/L 135-148 POTASSIUM-STAT [id number] 14:39:00 Test Item Value Reference Range Interpretation Comments POTASSIUM (BEAKER) (test code = 3.6 meq/L 3.6-5.5 379) HGB/HCT (H&H) - STAT [id number] 14:39:00 Test Item Value Reference Range Interpretation Comments HEMOGLOBIN (BEAKER) (test code = 13.5 g/dL 12.0-15.0 410) HEMATOCRIT (BEAKER) (test code = 40.0 % 36.0-45.0 411) CALCIUM, [id number] 14:39:00 Test Item Value Reference Range Interpretation Comments CALCIUM IONIZED (BEAKER) (test 1.13 mmol/L 1.12-1.27 code = 698) PH, BLOOD (BEAKER) (test code = 7.47 1810) BLOOD GAS, [id number] 14:39:00 Test Item Value Reference Range Interpretation [...] (test code = 1819) 60.0 % GLUCOSE-STAT [id number] 14:39:00 Test Item Value Reference Range Interpretation Comments GLUCOSE RANDOM (BEAKER) (test code 151 mg/dL 70-110 H = 652) HEPATIC FUNCTION [id number] 06:34:00 Test Item Value Reference Range Interpretation [...] code = 51 U/L 6-55 347) PROTHROMBIN [id number] 06:17:00 Test Item Value Reference Range Interpretation [...] for patients wiht mechanical heart valves.MR, ABDOMEN, [id number] 16:16:00 FINAL REPORT TECHNIQUE: MRI of the [...] to inflammation and infection. Signed: Waldemar Sher MDRsejalort Verified Date/Time: 03/25/2019 16:16:25 Reading Location: [address] Body Reading Room REHENSIVE METABOLIC [id number] 05:51:00 Test Item Value Reference Range Interpretation [...]
[2021-07-08 23:53] LABS: Urine Blood Negative (Negative); Urine Glucose Negative (Negative); Urine Protein Negative (Negative); Urine Specific Gravity 1.015 (1.005-1.030)
[2021-07-09 00:15] LABS: Absolute Lymphocytes (CBC) 1.4 K/uL (0.7-4.9); Basophils % 0.5 % (0-1.3); Hematocrit 43.1 % (36.0-45.0); Lymphocytes % 16.8 % (15.3-44.8); MPV 9.7 fL (7.6-11.3); RBC Red Blood Cell Count 4.87 M/uL (3.86-4.86)
[2021-07-09] MEDS ORDERED: MORPHINE 4 MG/ML SYR ONE (00:16)
[2021-07-09] MEDS ORDERED: ONDANSETRON 4 MG/2 ML VIAL ONE (00:16)
[2021-07-09 00:39] LABS: Albumin 3.4 g/dL (3.4-5.0); Bilirubin Direct 0.3 mg/dL (0-0.2); Bilirubin Total 0.7 mg/dL (0.2-1.0); Protein, Total 9.1 g/dL (6.4-8.2)
[2021-07-09 00:50] LABS: Potassium 4.4 mmol/L (3.5-5.1)
[2021-07-09] MEDS ORDERED: FENTANYL CITR 100 MCG/2 ML ONE (01:53)
[2021-07-09] MEDS ORDERED: BISACODYL 10 MG RECTAL SUPP ONE (02:01)
[2021-07-09] MEDS ORDERED: POLYETHYL GLY 3350 17 GM/DOSE ONE (02:02)
--- NOTE | 2021-07-09 02:12 | EDPHYS ---
Physician Documentation [facility] Name: Tere Urbina Age: 60 yrs Sex: Female : 1960 Arrival Date: 07/08/2021 Time: 23:13 Bed 8 Private MD: ED Physician Fabien Rosas HPI: 07/09 00:18 This 60 yrs old Female presents to ER via Ambulatory with complaints of Abdominal Pain. kdr 00:18 The patient presents with abdominal pain Abdominal pain that began on her left lower kdr quadrant area and suprapubic area couple of days ago. Since then the pain is evolved into more diffusely around her abdomen including her right and left upper quadrant. She has some nausea but no vomiting. No change in her bowel movements. She did have a fever for couple of days but then that broke about 12 to 24 hours ago. Onset: The symptoms/episode began/occurred gradually, 3 day(s) ago. The symptoms radiate to Associated signs and symptoms: Pertinent positives: nausea, Pertinent negatives: blood in stools, chest pain, constipation, diarrhea, dysuria, palpitations, shortness of breath, vaginal discharge. The symptoms are described as achy, constant, crampy, waxing/waning. Modifying factors: The symptoms are alleviated by nothing, the symptoms are aggravated by movement, touching the area, walking. Severity of pain: At its worst the pain was moderate severe just prior to arrival, in the emergency department the pain is unchanged. The patient has not experienced similar symptoms in the past. The patient has not recently seen a physician. Historical: - Allergies: 07/08 23:30 Bactrim; bb 23:30 Ceclor; bb 23:30 Keflex; bb 23:30 PENICILLINS; bb - Home Meds: 23:30 levothyroxine 100 mcg tab 1 tab once daily [Active]; pantoprazole 40 mg Oral TbEC 1 tab bb once daily [Active]; Singulair 10 mg Oral tab 1 tab once daily [Active]; - PMHx: 23:30 GERD; Hypothyroidism; ibs; seasonal allergies; bb - PSHx: 23:30 Cholecystectomy; hysterectomy; partial mastectomy; knee; bb - Immunization history:: Adult Immunizations up to date, Client reports receiving the 2nd dose of the Covid vaccine. - Social history:: Smoking status: Patient reports the use of cigarette tobacco products, denies chronic smoking, but will smoke occasionally, Patient uses alcohol, but reports only rare drinking. Patient/guardian denies using street drugs. ROS: 07/09 00:18 Constitutional: Negative for weight loss -he has had fever for several days until it kdr resolved about 12 to 24 hours ago Eyes: Negative for injury, pain, redness, and discharge, Neck: Negative for injury, pain, and swelling, Cardiovascular: Negative for chest pain, palpitations, and edema, Respiratory: Negative for shortness of breath, cough, wheezing, and pleuritic chest pain, Back: Negative for injury and pain, : Negative for injury, bleeding, discharge, and swelling, MS/Extremity: Negative for injury and deformity, Skin: Negative for injury, rash, and discoloration, Neuro: Negative for headache, weakness, numbness, tingling, and seizure activity. Psych: Negative for depression, anxiety, suicide ideation, homicidal ideation, and hallucinations, Allergy/Immunology: Negative for hives, rash, and allergies, Endocrine: Negative for neck swelling, polydipsia, polyuria, polyphagia, and marked weight changes, Hematologic/Lymphatic: Negative for swollen nodes, abnormal bleeding, and unusual bruising. Abdomen/GI: Positive for abdominal pain, nausea, Patient states that she has a history of irritable bowel and diverticulitis, Negative for vomiting, constipation. Exam: 00:18 Constitutional: This is a well developed, well nourished patient who is awake, alert, kdr and in no acute distress. Head/Face: Normocephalic, atraumatic. Eyes: Pupils equal round and reactive to light, extra-ocular motions intact. Lids and lashes normal. Conjunctiva and sclera are non-icteric and not injected. Cornea within normal limits. Periorbital areas with no swelling, redness, or edema. Neck: Trachea midline, no thyromegaly or masses palpated, and no cervical lymphadenopathy. Supple, full range of motion without nuchal rigidity, or vertebral point tenderness. No Meningismus. Chest/axilla: Normal chest wall appearance and motion. Nontender with no deformity. No lesions are appreciated. Cardiovascular: Regular rate and rhythm with a normal S1 and S2. No gallops, murmurs, or rubs. Normal PMI, no JVD. No pulse deficits. Respiratory: Lungs have equal breath sounds bilaterally, clear to auscultation and percussion. No rales, rhonchi or wheezes noted. No increased work of breathing, no retractions or nasal flaring. Back: No spinal tenderness. No costovertebral tenderness. Full range of motion. Skin: Warm, dry with normal turgor. Normal color with no rashes, no lesions, and no evidence of cellulitis. MS/ Extremity: Pulses equal, no cyanosis. Neurovascular intact. Full, normal range of motion. Neuro: Awake and alert, GCS 15, oriented to person, place, time, and situation. Cranial nerves II-XII grossly intact. Motor strength 5/5 in all extremities. Sensory grossly intact. Cerebellar exam normal. Normal gait. Psych: Awake, alert, with orientation to person, place and time. Behavior, mood, and affect are within normal limits. 00:18 Abdomen/GI: Inspection: obese Bowel sounds: diminished, in all quadrants, Palpation: soft, moderate abdominal tenderness, in the posterior aspect of right lateral abdomen, posterior aspect of left lateral abdomen, anterior aspect of left lateral abdomen, right upper quadrant, left upper quadrant and left lower quadrant. Vital Signs: 07/08 23:27 BP 137 / 79; Pulse 72; Resp 16 S; Temp 98(O); Pulse Ox 100% on R/A; Weight 86.18 kg bb (R); Height 5 ft. 7 in. (170.18 cm) (R); Pain 10/10; 23:56 BP 133 / 78; Pulse 73; Resp 18; Pulse Ox 100% on R/A; df1 23:27 Body Mass Index 29.76 (86.18 kg, 170.18 cm) bb MDM: 07/09 00:18 Data reviewed: vital signs, nurses notes, lab test result(s), radiologic studies. kdr Counseling: I had a detailed discussion with the patient and/or guardian regarding: the historical points, exam findings, and any diagnostic results supporting the discharge/admit diagnosis, lab results, radiology results. 02:11 Patient medically screened. kdr 07/08 23:26 Order name: Basic Metabolic Panel; Complete Time: 01:59 kdr 07/08 23:26 Order name: CBC with Diff; Complete Time: 01:59 kdr 07/08 23:26 Order name: Hepatic Function; Complete Time: 01:59 kdr 07/08 23:26 Order name: Lipase; Complete Time: 01:59 kdr 07/08 23:52 Order name: Urine Dipstick-Ancillary; Complete Time: 00:18 EDMS 07/09 00:17 Order name: CT Abd/Pelvis - IV Contrast Only kdr 07/08 23:26 Order name: IV Saline Lock; Complete Time: 23:56 kdr 07/08 23:26 Order name: Labs collected and sent; Complete Time: :59 kdr 07/08 23:26 Order name: Urine Dipstick-Ancillary (obtain specimen); Complete Time: 23:56 kdr Administered Medications: 00:23 Drug: morphine 4 mg Route: IVP; Site: right antecubital; df1 02:12 Follow up: Response: No adverse reaction df1 00:23 Drug: Zofran (Ondansetron) 4 mg Route: IVP; Site: right antecubital; df1 02:12 Follow up: Response: No adverse reaction df1 02:00 Drug: fentaNYL (PF) 50 mcg Route: IVP; Site: right antecubital; df1 02:12 Follow up: Response: Pain is decreased df1 02:11 Drug: Dulcolax (bisacodyl) Suppository 10 mg Route: OR; df1 02:12 Follow up: Response: No adverse reaction df1 02:12 Drug: Miralax (polyethylene glycol) 17 grams Route: PO; df1 02:12 Follow up: Response: No adverse reaction df1 Disposition Summary: 07/09/21 02:11 Discharge Ordered Location: Home kdr Problem: an acute exacerbation kdr Symptoms: have improved kdr Condition: Stable kdr Diagnosis - Abdominal pain, Generalized kdr - Diverticulitis of large intestine without perforation or abscess without bleeding kdr Followup: kdr - With: Private Physician - When: 2 - 3 days - Reason: If symptoms return, Further diagnostic work-up, Recheck today's complaints, Continuance of care, Re-evaluation by your physician Discharge Instructions: - Discharge Summary Sheet kdr - High-Fiber Diet kdr - Diverticulitis, Tibe-cr-Vqft kdr - Constipation, Adult, Sros-vx-[id number] kdr - Abdominal Pain, Adult, Jlut-wc-Zhss kdr Forms: - Medication Reconciliation Form kdr - Thank You Letter kdr - Antibiotic Education kdr Prescriptions: - Miralax 17 gram Oral powder in packet - take 1 packet by ORAL route once daily; 1 box; Refills: 0, Product Selection kdr Permitted - Cipro 500 mg Oral Tablet - take 1 tablet by ORAL route every 12 hours for 7 days; 14 tablet; Refills: 0, kdr Product Selection Permitted - Flagyl 500 mg Oral Tablet - take 1 tablet by ORAL route every 8 hours for 7 days; 21 tablet; Refills: 0, kdr Product Selection Permitted - Pepcid 20 mg Oral Tablet - take 1 tablet by ORAL route every 12 hours for 5 days; 10 tablet; Refills: 0, kdr Product Selection Permitted - Dulcolax (bisacodyl) 5 mg Oral tablet,delayed release (DR/EC) - take 2 tablet by ORAL route once daily As needed; 20 tablet; Refills: 0, kdr Product Selection Permitted Signatures: Dispatcher [employer] Fabien Booker MD MD [facility] Waleska Marquez RN RN Cher Wagner df1 Tere Lopez tw5 Corrections: (The following items were deleted from the chart) 07/08 23:57 23:26 Urine Test ordered. kdr df1
--- NOTE | 2021-07-09 02:12 | ER ---
Nurse's Notes [facility] Name: Tere Urbina Age: 60 yrs Sex: Female : 1960 Arrival Date: 07/08/2021 Time: 23:13 Bed 8 Private MD: Diagnosis: Abdominal pain, Generalized;Diverticulitis of large intestine without perforation or abscess without bleeding Presentation: 07/08 23:27 Chief complaint: Patient states: she has been having upper abdominal pain radiating to bb her back x 1 week, has nausea but denies vomiting or diarrhea. Coronavirus screen: At this time, the client does not indicate any symptoms associated with coronavirus-19. Ebola Screen: No symptoms or risks identified at this time. Initial Sepsis Screen: Does the patient meet any 2 criteria? No. Patient's initial sepsis screen is negative. Does the patient have a suspected source of infection? No. Patient's initial sepsis screen is negative. Risk Assessment: Do you want to hurt yourself or someone else? Patient reports no desire to harm self or others. Onset of symptoms was July 05, 2021. 23:27 Method Of Arrival: Ambulatory 23:27 Acuity: KAITLYNN 3 bb Triage Assessment: 23:54 General: Appears in no apparent distress. Behavior is calm, cooperative. Pain: df1 Complains of pain in back and abdomen Pain radiates to back Pain currently is 8 out of 10 on a pain scale. EENT: No deficits noted. Neuro: No deficits noted. Cardiovascular: No deficits noted. Respiratory: Airway is patent Trachea midline Respiratory effort is even, unlabored, Respiratory pattern is regular, symmetrical, Breath sounds are clear bilaterally. GI: Last BM was July 08, 2021. Bowel sounds present X 4 quads. Abd is soft and non tender X 4 quads. : No deficits noted. Derm: No deficits noted. Musculoskeletal: No deficits noted. Historical: - Allergies: 23:30 Bactrim; bb 23:30 Ceclor; bb 23:30 Keflex; bb 23:30 PENICILLINS; bb - Home Meds: 23:30 levothyroxine 100 mcg tab 1 tab once daily [Active]; pantoprazole 40 mg Oral TbEC 1 tab bb once daily [Active]; Singulair 10 mg Oral tab 1 tab once daily [Active]; - PMHx: 23:30 GERD; Hypothyroidism; ibs; seasonal allergies; bb - PSHx: 23:30 Cholecystectomy; hysterectomy; partial mastectomy; knee; bb - Immunization history:: Adult Immunizations up to date, Client reports receiving the 2nd dose of the Covid vaccine. - Social history:: Smoking status: Patient reports the use of cigarette tobacco products, denies chronic smoking, but will smoke occasionally, Patient uses alcohol, but reports only rare drinking. Patient/guardian denies using street drugs. Screenin:53 Abuse screen: Denies threats or abuse. Nutritional screening: No deficits noted. df1 Tuberculosis screening: No symptoms or risk factors identified. Fall Risk None identified. Assessment: 07/09 00:24 Reassessment: No changes from previously documented assessment. General:. df1 Vital Signs: 07/08 23:27 BP 137 / 79; Pulse 72; Resp 16 S; Temp 98(O); Pulse Ox 100% on R/A; Weight 86.18 kg bb (R); Height 5 ft. 7 in. (170.18 cm) (R); Pain 10/10; 23:56 BP 133 / 78; Pulse 73; Resp 18; Pulse Ox 100% on R/A; df1 23:27 Body Mass Index 29.76 (86.18 kg, 170.18 cm) bb ED Course: 23:13 Patient arrived in ED. wm 23:16 Fabien Rosas MD is Attending Physician. kdr 23:30 Triage completed. bb 23:30 Arm band placed on Patient placed in an exam room, on a stretcher, on pulse oximetry. bb Family accompanied patient. 23:32 Cher Palomo is Primary Nurse. df1 23:53 Patient has correct armband on for positive identification. Placed in gown. Bed in low df1 position. Call light in reach. Side rails up X 1. Adult w/ patient. chyron operator on. Pulse ox on. NIBP on. 23:53 No provider procedures requiring assistance completed. Inserted saline lock: 18 gauge df1 in right antecubital area, using aseptic technique. 23:59 Basic Metabolic Panel Sent. df1 23:59 CBC with Diff Sent. df1 23:59 Hepatic Function Sent. df1 23:59 Lipase Sent. df1 07/09 01:26 CT Abd/Pelvis - IV Contrast Only In Process Unspecified. EDMS 02:36 IV discontinued, intact, bleeding controlled, No redness/swelling at site. Pressure tw5 dressing applied. Administered Medications: 00:23 Drug: morphine 4 mg Route: IVP; Site: right antecubital; df1 02:12 Follow up: Response: No adverse reaction df1 00:23 Drug: Zofran (Ondansetron) 4 mg Route: IVP; Site: right antecubital; df1 02:12 Follow up: Response: No adverse reaction df1 02:00 Drug: fentaNYL (PF) 50 mcg Route: IVP; Site: right antecubital; df1 02:12 Follow up: Response: Pain is decreased df1 02:11 Drug: Dulcolax (bisacodyl) Suppository 10 mg Route: OH; df1 02:12 Follow up: Response: No adverse reaction df1 02:12 Drug: Miralax (polyethylene glycol) 17 grams Route: PO; df1 02:12 Follow up: Response: No adverse reaction df1 Outcome: 02:11 Discharge ordered by . kdr 02:36 Discharged to home tw5 02:36 Condition: stable 02:36 Discharge instructions given to patient, Instructed on discharge instructions, Demonstrated understanding of instructions. 02:37 Patient left the ED. tw5 Signatures: Dispatcher [employer] EDMS Fabien Rosas MD MD kdr Ballard, Brenda, RN RN bb Marsh, Wendy wm Furlich, Dawn df1 Tere Lopez tw5
[2021-07-09 02:53] VITALS: TEMP 98; O2SAT 100
[2021-07-09 02:55] VITALS: BP 133/78
--- NOTE | 2021-07-09 12:17 | RAD REPORT ---
EXAM DESCRIPTION: CT - Abdomen Pelvis W Contrast - 07/09/2021 6:47 am CLINICAL HISTORY: 60 years, Female, ABD PAIN COMPARISON: None. TECHNIQUE: Contrast-enhanced images of the abdomen and pelvis were performed utilizing 5 mm slice th ickness at 5 mm interval reconstruction from the lung bases to the ischial tuberosities after the adm inistration of IV contrast. In addition multiplanar reformats in the coronal and sagittal plane were obtained and reviewed. This exam was performed according to our departmental dose-optimization protocol, which includes auto mated exposure control, adjustment of the mA and/or kV according to patient size and/or use of iterat gurmeet reconstruction technique. FINDINGS: The lung bases demonstrate to be clear. The liver, pancreas, spleen and adrenal glands demonstrate to be unremarkable, no focal lesions are n oted. Surgical clips within the gallbladder fossa correspond to previous cholecystectomy. There is no biliary duct dilatation. The kidneys demonstrate normal uptake of contrast media. No evidence for nephrolithiasis and/or hydro nephrosis. Grossly the unopacified stomach, small bowel and large bowel demonstrate to be within normal limits. There is no evidence for bowel dilatation/or free air. Fecal residue throughout the large bowel cou ld suggest the possibility of mild constipation. There is diverticulosis within the left site colon/s igmoid colon. Questionable very minimal early surrounding pericolonic haziness suggesting within the distal portion of the descending colon for which the possibility of of very mild early diverticulitis could be considered on image 52/96-57/96. The appendix is unremarkable. The urinary bladder demonstrate to be unremarkable. The uterus is absent. There are no adnexal mass es. The aorta demonstrate minimal atheromatous plaque formation at the aortic bifurcation. There is no retroperitoneal lymphadenopathy. There is no evidence for ascites/or significant abnormal fluid collections. The rest of the soft tissue and bony structures are within normal limits. IMPRESSION: Questionable very minimal early diverticulitis distal descending colon. Fecal residue throughout the large bowel could suggest the possibility of mild constipation. Status post cholecystectomy and hysterectomy. Electronically signed by: Shay Johnson MD 07/09/2021 1:48 AM PERFORATOR TYPIST Due to temporary technical issues with the PACS/Fluency reporting system, reports are being signed by the in house radiologists without review as a courtesy to insure prompt reporting. The interpreting radiologist is fully responsible for the content of the report.
== END 2021-07-09 02:37 | disposition home or self-care (01) ==
LOC: ER 23:06
DX: K57.32 Diverticulitis of large intestine without perforation or abscess without bleeding (principal); F17.210 Nicotine dependence, cigarettes, uncomplicated; E03.9 Hypothyroidism, unspecified; Z88.0 Allergy status to penicillin; Z88.1 Allergy status to other antibiotic agents
CPT/HCPCS: 85025; 36415; 81003; 74177; 96375; 96374; 99284; Q9967; J3010; J2405